=== PATIENT | male | born 1955 | race Caucasian/White ===

== ENCOUNTER 2017-06-10 15:47 | Inpatient (IN) | payer OTHER, MEDICAID ==
[2017-06-10] MEDS ORDERED: ONDANSETRON DISINTEGRATING 4 MG TAB PO PRN (17:32)
[2017-06-10] MEDS ORDERED: ONDANSETRON 4 MG/2 ML VIAL IVP PRN (17:32)
[2017-06-10] MEDS ORDERED: ACETAMINOPHEN 325 MG TAB PO PRN ×2 (17:32→18:08)
[2017-06-10] MEDS ORDERED: VANCOMYCIN 1 GM in D5W 250 ML IV SCH (18:00)
[2017-06-10] MEDS ORDERED: PIPERACILLIN/TAZO 3.375 GM/DEX 50 ML IV SCH (18:00)
[2017-06-10] MEDS ORDERED: OXYCODONE/APAP 5/325 TAB PO PRN (18:06)
[2017-06-10 18:39] LABS: ADD DIFF? YES; ADD MORPH? NO; ADD SCAN? NO; ATYPICAL LYMPHOCYTE FLAG 10 (0-99); FRAGMENT RBC FLAG 0 (0-99); HEMATOCRIT 36.4 % (40.0-51.0); HEMOGLOBIN 11.8 g/dL (13.7-17.5); LEFT SHIFT FLG 20 (0-99); LIPEMIA HEMOLYSIS FLAG 80 (0-99); MEAN CELL HEMOGLOBIN 26.6 pg (27.9-34.1); MEAN CELL HEMOGLOBIN CONCENTR. 32.4 g/dL (32.4-36.7); MEAN PLATELET VOLUME 8.9 fL (8.7-11.7); PLATELET CLUMPS FLAG 10 (0-99); PLATELET COUNT 378 10^3/uL (150-400); RED BLOOD CELL COUNT 4.44 10^6/uL (4.40-6.38); RED CELL DISTRIBUTION WIDTH 15.9 % (11.5-15.2)
[2017-06-10 18:41] LABS: INR 1.23 (0.83-1.16); PROTIME(PATIENT) 15.5 SEC (12.0-15.0)
[2017-06-10 18:53] LABS: ALANINE AMINOTRANSFERASE 101 IU/L (21-72); ALBUMIN 2.8 g/dL (3.5-5.0); ALKALINE PHOSPHATASE 147 IU/L (38-126); ANION GAP 13 mEq/L (8-16); ASPARTATE AMINOTRANSFERASE 60 IU/L (17-59); BILIRUBIN,TOTAL 0.8 mg/dL (0.1-1.4); CALCIUM 8.5 mg/dL (8.5-10.4); CARBON DIOXIDE 23 mEq/l (22-31); CHLORIDE 100 mEq/L (97-110); CREATININE 1.1 mg/dL (0.7-1.3); GLOMERULAR FILTRATION RATE > 60; GLUCOSE 96 mg/dL (70-100); POTASSIUM 4.8 mEq/L (3.5-5.2); SODIUM 136 mEq/L (134-144); TOTAL PROTEIN 5.9 g/dL (6.3-8.2)
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
[2017-06-10 19:15] LABS: PLATELET ESTIMATE ADEQUATE (ADEQ)
[2017-06-10 20:42] LABS: HEMOGLOBIN A1C 8.3 % (4.0-6.0)
[2017-06-10] MEDS ORDERED: GADOBUTROL 10 ML VIAL IVP ONE (21:24)
[2017-06-10] MEDS ORDERED: MAGNESIUM HYDROXIDE 30 ML UDCUP PO PRN (22:26)
[2017-06-10] MEDS ORDERED: D50W 25 GM/50 ML VIAL IVP PRN (22:28)
[2017-06-10] MEDS: INSULIN LISPRO 100 UNIT/ML SC SCH (22:46)
[2017-06-10] MEDS: morphINE SR 15 MG TAB PO SCH (22:49)
[2017-06-10] MEDS: ATORVASTATIN CALCIUM 40 MG TAB PO SCH (22:50)
[2017-06-10] MEDS: ATENOLOL 50 MG TAB PO SCH (22:50)
[2017-06-10] MEDS: oxyCODONE IR 5 MG TAB PO PRN (23:46)
[2017-06-11] MEDS: ERTAPENEM 1 GM VIAL IVP SCH ×2 (00:19→13:21)
[2017-06-11] MEDS: INSULIN LISPRO 100 UNIT/ML SC SCH ×5 (00:37→21:25)
--- NOTE | 2017-06-11 00:47 | BCON ---
[f rep st] SURGICAL CONSULTATION REASON FOR ADMISSION: Diabetic left foot infection. HISTORY OF PRESENT ILLNESS: 62-year-old male known to me with a significant history for diabetes, prior traumatic brain injury, lower extremity neuropathy, and prior right foot ischemia secondary to SFA level occlusive disease. He underwent a right SFA angioplasty in 2012, followed by 1st and 5th toe amputations, which ultimately healed up well. The patient lives at [facility]. He is minimally ambulatory. He reports that he bumped his left foot approximately 10 days ago on a door frame. Per his sister and brother-in- law, he was noted to have progressive worsening redness over the last few days for which he presents to the office today. Fevers and chills are denied. He has not been started on antibiotics by his care facility providers. In the office today, he was noted to have areas of diffuse ischemic ulceration throughout the sole of his foot along with the diffuse cellulitis. Provided white count of 12 was noted on yesterday's laboratory assessments. He is being admitted to the medical service at this time for co-management for his diabetic foot infection. Also, per his sister's report and the care facility, the patient has been having recent right upper quadrant pain with radiation towards his shoulder. I was unable to obtain much further history of this during our office setting and this will be addressed during this visit as well. PAST MEDICAL HISTORY: Prior traumatic brain injury, hypertension, diabetes, ischemic heart disease, neuropathy, GERD. PAST SURGICAL HISTORY: Renal artery stent placement, right 1st and 5th toe amputations. CURRENT MEDICATIONS: Aspirin, atenolol, atorvastatin, Plavix, Farxiga, Fiber, Januvia, Lyrica, metformin, milk of magnesia, morphine ER, morphine sulfate, Novolin, oxycodone, spironolactone, Voltaren gel to his right foot. ALLERGIES: No known drug allergies. SOCIAL HISTORY: Significant a prior smoking history. None current. Notable history of alcohol use. PHYSICAL EXAM: VITAL SIGNS: Blood pressure 100/60 in office. GENERAL: Patient is alert, appropriate, tangential. HEAD/NECK: 2+ carotid pulses without bruits. Anicteric. No cervical lymphadenopathy. HEART: Regular without murmurs. LUNGS: Clear bilaterally. ABDOMEN: Soft, nontender, nondistended. EXTREMITIES: 2+ bilateral femoral pulses, absent popliteal, as well as pedal pulses. Right lower extremity with nicely healed 1st and 5th toe amputation sites with 2+ capillary refill bilaterally. Left lower extremity with diffuse erythema. Dorsal blister and plantar ischemic ulcers measuring approximately 5 x 10 cm and 3 x 5 cm. No tenderness. No crepitus. No fluctuance. IMPRESSION: 1. Diabetic left foot infection. 2. Known bilateral superficial femoral artery level occlusive disease, status post remote right superficial femoral artery angioplasty. 3. History of chronic pain syndrome. 4. RUQ pain. PLAN: Patient is being admitted to the medical service for co-management of his diabetes, hypertension, and other illnesses. We will start IV antibiotics for his left foot infection. Patient will need a traditional angiography with possible catheter directed intervention of his SFA if able for further immediate revascularization needs. The patient's family are aware that he is at increased risk for limb loss given his infection and comorbidities. Will obtain RUQ US for further gallbladder assessment. This case was reviewed with Dr. Tang via phone, who agreed to accept the patient on admission. /[id number]/MODL MTDD
[2017-06-11] MEDS: LISINOPRIL 5 MG TAB PO SCH (07:47)
[2017-06-11] MEDS: morphINE SR 15 MG TAB PO SCH ×2 (07:47→20:50)
[2017-06-11] MEDS: ATENOLOL 50 MG TAB PO SCH ×2 (07:47→20:50)
[2017-06-11] MEDS: PREGABALIN 50 MG CAP PO SCH ×2 (07:48→20:50)
[2017-06-11] MEDS ORDERED: MEPERIDINE 25 MG/ML SYR IVP PRN (08:06)
[2017-06-11] MEDS ORDERED: PROTAMINE SULFATE 50 MG/5 ML VIAL IVP PRN (08:06)
[2017-06-11] MEDS ORDERED: MIDAZOLAM 2 MG/2 ML VIAL IVP PRN (08:06)
[2017-06-11] MEDS ORDERED: ALTEPLASE 2 MG VIAL IVP PRN (08:06)
[2017-06-11] MEDS ORDERED: GLUCAGON HCL 1 MG VIAL IVP PRN (08:06)
[2017-06-11] MEDS ORDERED: fentaNYL 100 MCG/2 ML INJ IVP PRN (08:06)
[2017-06-11] MEDS ORDERED: FLUMAZENIL 0.5 MG/5 ML MDV IVP PRN (08:06)
[2017-06-11] MEDS ORDERED: NALOXONE HCL 0.4 MG/ML INJ IVP PRN (08:06)
[2017-06-11] MEDS ORDERED: HEPARIN 10,000 UNIT/10 ML MDV IVP PRN (08:06)
[2017-06-11] MEDS ORDERED: NS 1,000 ML IV SCH (08:15)
--- NOTE | 2017-06-11 08:42 | WOCRNPDOC ---
WOCRN Advanced Assessment Note - Skin Integrity Problem, Advanced Assess Left Foot Diabetic Ulcer Dressing Type: Open to Air Exudate Amount: None Bernice Wound Tissue: Scaly, Dry Bernice Wound Swelling: None Wound Bed Color: Black Wound Bed Constitution: Stable Eschar Site Odor: None Site Measurement - Head-to-Toe Length X Width X Depth (cm): Proximal: 4.5cmx5.1cmx eschar. Distal:9.5cmx4.5cmx eschar Pulse Location & Description: No palpable DP pulse Skin Integrity Problem Comment: Two large wounds noted on plantar aspect of patient's L foot, both 100% dry, stable eschar w/ no fluctuance or odor. Periwound skin is presently intact and dry, and there is erythema on the dorsal aspect of this foot. No palpable DP pulse, though this extremity is warm to the touch. Patient reports 7/10 pain, and denies neuropathy. He is going for CTA w/ run-off today to assess vascular status of this extremity. Presently wounds are dry and stable, so no wound care orders are needed at this time. Wound care is available to re-evaluate if it is determined that patient is a candidate for revascularization and subsequent debridement.
[2017-06-11 08:45] LABS: ADD DIFF? YES; ADD MORPH? NO; ADD SCAN? NO; ATYPICAL LYMPHOCYTE FLAG 10 (0-99); FRAGMENT RBC FLAG 0 (0-99); HEMOGLOBIN 12.6 g/dL (13.7-17.5); LEFT SHIFT FLG 30 (0-99); LIPEMIA HEMOLYSIS FLAG 80 (0-99); MEAN CELL HEMOGLOBIN 26.8 pg (27.9-34.1); MEAN CELL HEMOGLOBIN CONCENTR. 32.3 g/dL (32.4-36.7); MEAN CELL VOLUME 82.8 fL (81.5-99.8); MEAN PLATELET VOLUME 8.7 fL (8.7-11.7); PLATELET CLUMPS FLAG 0 (0-99); PLATELET COUNT 373 10^3/uL (150-400); RED BLOOD CELL COUNT 4.71 10^6/uL (4.40-6.38); RED CELL DISTRIBUTION WIDTH 15.9 % (11.5-15.2)
[2017-06-11] MEDS: hydrALAZINE 20 MG/ML VIAL IVP PRN (08:59)
[2017-06-11] MEDS ORDERED: Dapagliflozin Propanediol [Farxiga] 5 MG PO SCH (09:00)
[2017-06-11] MEDS ORDERED: INSULIN 70/30 HUMAN 100 UNITS/ML SYR SC SCH ×4 (09:00→17:00)
[2017-06-11 09:09] LABS: ALANINE AMINOTRANSFERASE 86 IU/L (21-72); ALBUMIN 2.7 g/dL (3.5-5.0); ALKALINE PHOSPHATASE 135 IU/L (38-126); ANION GAP 11 mEq/L (8-16); ASPARTATE AMINOTRANSFERASE 49 IU/L (17-59); BILIRUBIN,TOTAL 0.8 mg/dL (0.1-1.4); CALCIUM 8.6 mg/dL (8.5-10.4); CARBON DIOXIDE 25 mEq/l (22-31); CHLORIDE 103 mEq/L (97-110); CREATININE 0.9 mg/dL (0.7-1.3); GLOMERULAR FILTRATION RATE > 60; GLUCOSE 172 mg/dL (70-100); SODIUM 139 mEq/L (134-144); TOTAL PROTEIN 6.2 g/dL (6.3-8.2)
[2017-06-11] MEDS ORDERED: fentaNYL 100 MCG/2 ML INJ ONE ×2 (09:40→09:51)
[2017-06-11] MEDS ORDERED: MIDAZOLAM 2 MG/2 ML VIAL ONE ×2 (09:40→09:51)
[2017-06-11] MEDS ORDERED: HEPARIN 10,000 UNIT/10 ML MDV ONE (09:41)
--- NOTE | 2017-06-11 09:52 | ASMTCASEMG ---
Living Arrangements What is your living Answers: Alone arrangement? Who do you live with? Type Of Residence What kind of residence do Answers: Jail Facility you live in? Discharge Plan Comments Coordination Status Comments Notes: Pt is a 62 y/o man admitted for a left foot ulcer. Pt lives at [facility]. Pt has a hx of TBI and his legal guardian is his sister, Kimmy. Pt will most likely return back to [facility] when medically stable. PT and OT have been ordered. CM sent updates to [facility] via [employer]. CM to follow. Date Signed: 06/11/2017 09:52 AM Electronically Signed By:MIKA Salas
[2017-06-11 10:32] LABS: PLATELET ESTIMATE ADEQUATE (ADEQ)
[2017-06-11] MEDS ORDERED: IOPAMIDOL (ISOVUE-300) 100 ML BTL ONE (10:41)
--- NOTE | 2017-06-11 10:49 | PDPROPOC ---
Sedation Plan of Care Sedation Plan of Care: vital signs stable, mental status noted, patient educated of risks, benefits, alternatives, patient can tolerate sedation ASA Classification: ASA 3 Planned drugs: fentanyl, midazolam Mallampati Score: Class 3 Mallampati Reference Image: Patient passed 3-3-2 rule?: Yes
--- NOTE | 2017-06-11 10:56 | PDMN ---
Medical Necessity Medical necessity: est los>2mn for diabetic foot ulcer and infection, elevated LFT's, and general debilitation; admit for IV abx, ID and surgical consults, PT/ OT;; comorbid PAD w/chronic occlusive limb ischemia LLE, DM, CAD, HTN, TBI; per H&P
[2017-06-11] MEDS ORDERED: VANCOMYCIN 1 GM in D5W 250 ML IV SCH (11:00)
--- NOTE | 2017-06-11 11:46 | PDRADPN ---
Radiology Procedure Note Date of Procedure: 06/11/17 Radiologist: Batsheva Martin Anesthesia: IV Sedation (fentanyl and versed) Pre-op Diagnosis: LLE PVD Post-op Diagnosis: same Indication: LT foot and chin cellulitis Procedure: LT leg runoff angiogram with SFA SURVIVAL SPECIALIST Finding(s): Focal moderate and long segment mild stenosis, resolved with SURVIVAL SPECIALIST. Inf/Abcess present in the surg proc area at time of surgery?: No Complications: None
--- NOTE | 2017-06-11 11:51 | SOAPPROG ---
SOAP Progress Note Assessment/Plan: Assessment:no complaints. hungry. in CVC s/p angioplasty. MRI with edema only - no abscess or osteo. US with gallstones. afebrile. comfortable. abd soft. puncture site flat. left foot warm - signif decr erythema since yesterday. no weeping. eschar unchanged. diabetic left foot infection with plantar eschar. cellulitis improved. cont ABX. will plan for future office eschar debridement once cellulitis resolved. apprec hospitalist assist with multiple comorbidities. Plan: 06/11/17 11:47 Objective: Vital Signs Temp Pulse Resp BP Pulse Ox 97.3 C H 68 17 160/73 H 96 06/11/17 08:55 06/11/17 08:55 06/11/17 10:20 06/11/17 10:45 06/11/17 10:45 Laboratory Results 06/11/17 08:14 06/11/17 08:14 06/10/17 06/11/17 06/12/17 05:59 05:59 05:59 Intake Total 100 Output Total 950 300 Balance -950 -200 PT 15.5 SEC (12.0-15.0) H 06/10/17 18:20 INR 1.23 (0.83-1.16) H 06/10/17 18:20 ICD10 Worksheet Patient Problems: Problems Problem Status Onset Encephalopathy acute Acute
[2017-06-11] MEDS: ASPIRIN 81 MG CHEWABLE TAB PO SCH (13:01)
[2017-06-11] MEDS: SPIRONOLACTONE 25 MG TAB PO SCH ×2 (13:01→16:31)
[2017-06-11] MEDS: DICLOFENAC SODIUM 1% 100 GM GEL TP SCH ×2 (13:19→21:23)
--- NOTE | 2017-06-11 14:42 | HOSPPROG ---
Hospitalist Progress Note Assessment/Plan: # Diabetic Foot wound - impressive Eschar of the plantar surface of foot - no significant erythema MRI LE (personally reviewed and interpreted) no osteomyelitis - will discuss Abx with ID - pt to IR for angiography today - Dr. Abbott surgery following # Peripheral Arterial disease - s/p SFA stenting and angioplasty 2014 - cont ASA, statin - consider CCB - to IR today - surgery following as above # Diabetes - pt currently NPO - BS 170's- oxygen saturations 95% on 2L - hold home dosing of NPH - hold PO meds as well - cover with SSI - if oral intake increases can restart in am # peripheral neuropathy - cont home gabapentin # HTN- cont home meds # TBI - continue supportive care # proph - lovenox on hold for angiography # diet- NPO for IR # dispo - > 2MN as requires diagnostic work up and care Frances stephen discussed the case with RN - holding long acting insulin today as BS adequately controlled with little PO intake Subjective: denies pain Objective: Vital Signs Temp Pulse Resp BP Pulse Ox 36.5 C 66 20 180/83 H 96 06/11/17 13:47 06/11/17 13:47 06/11/17 13:47 06/11/17 13:47 06/11/17 13:47 Laboratory Results 06/11/17 08:14 06/11/17 08:14 06/10/17 06/11/17 06/12/17 05:59 05:59 05:59 Intake Total 100 Output Total 950 300 Balance -950 -200 PT 15.5 SEC (12.0-15.0) H 06/10/17 18:20 INR 1.23 (0.83-1.16) H 06/10/17 18:20 - Physical Exam Constitutional: no apparent distress Eyes: anicteric sclera Ears, Nose, Mouth, Throat: moist mucous membranes Cardiovascular: regular rate and rhythym Respiratory: no respiratory distress Gastrointestinal: normoactive bowel sounds Genitourinary: no bladder fullness Skin: warm, other (large eschar of plantar surface of left foot) Musculoskeletal: No asymmetric calves Neurologic: No AAOx3 Psychiatric: interacting appropriately, No agitated Lymph, Heme, Immunologic: no cervical LAD ICD10 Worksheet Patient Problems: Problems Problem Status Onset Encephalopathy acute Acute
[2017-06-11] MEDS: oxyCODONE IR 5 MG TAB PO PRN ×2 (15:08→18:08)
[2017-06-11] MEDS ORDERED: ERTAPENEM 1 GM VIAL IVP SCH (18:00)
[2017-06-11] MEDS: ATORVASTATIN CALCIUM 40 MG TAB PO SCH (20:51)
[2017-06-12] MEDS: oxyCODONE IR 5 MG TAB PO PRN ×3 (00:20→18:06)
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
[2017-06-12] MEDS: SPIRONOLACTONE 25 MG TAB PO SCH ×2 (08:19→16:59)
[2017-06-12] MEDS: LISINOPRIL 5 MG TAB PO SCH (08:19)
[2017-06-12] MEDS: PREGABALIN 50 MG CAP PO SCH ×2 (08:19→20:50)
[2017-06-12] MEDS: morphINE SR 15 MG TAB PO SCH ×2 (08:19→20:50)
[2017-06-12] MEDS: ATENOLOL 50 MG TAB PO SCH ×2 (08:20→20:50)
[2017-06-12] MEDS: ASPIRIN 81 MG CHEWABLE TAB PO SCH (09:29)
[2017-06-12] MEDS: INSULIN 70/30 HUMAN 100 UNITS/ML SYR SC SCH (09:29)
[2017-06-12] MEDS: INSULIN LISPRO 100 UNIT/ML SC SCH ×4 (09:31→20:52)
[2017-06-12] MEDS: ENOXAPARIN 40 MG/0.4 ML SYR SC SCH (09:33)
--- NOTE | 2017-06-12 09:53 | PCMIDPN ---
Assessment/Plan: # Possible LLE cellulitis associated with L lower leg ischemia. Remote H/o MRSA --dc IV antibiotics, dc vanco trough --5 more days PO Keflex + doxycycline, MAR adjusted --call ID for additional questions # Severe Back pain : hopefully related to bed position post vascular procedure yesterday, internal medicine addressing medication vancomycin 1gm IV q12, #2 micro 06/10 blood cx (2) NGTD Subjective: c/o severe back pain Objective: Vital Signs Temp Pulse Resp BP Pulse Ox 36.7 C 72 20 199/106 H 94 06/12/17 08:00 06/12/17 08:00 06/12/17 08:00 06/12/17 08:00 06/12/17 08:00 Laboratory Results 06/11/17 08:14 06/11/17 08:14 06/11/17 06/12/17 06/13/17 05:59 05:59 05:59 Intake Total 100 Output Total 950 950 Balance -950 -850 - Physical Exam General Appearance: alert, no apparent distress, obese EENT: pale conjunctiva, No scleral icterus Respiratory: No accessory muscle use Cardiac/Chest: regular rate, rhythm Extremities: inflammation (almost complete resolution of inflammation dorsum of foot and mid aviles), other (2 dry superficial ichemic ulcers on the sole 4.5cmx5.1cm; Distal:9.5cmx4.5cm, dry without drainage) Abdomen: normal bowel sounds, non-tender, soft Neuro/Psych: alert ICD10 Worksheet Patient Problems: Problems Problem Status Onset Encephalopathy acute Acute
[2017-06-12] MEDS: DICLOFENAC SODIUM 1% 100 GM GEL TP SCH ×2 (10:33→20:51)
[2017-06-12] MEDS: VANCOMYCIN 1 GM in D5W 250 ML IV SCH ×2 (12:55)
--- NOTE | 2017-06-12 13:11 | WOCRNPDOC ---
WOCRN Advanced Assessment Note - Skin Integrity Problem, Advanced Assess Left Foot Diabetic Ulcer Dressing Type: Open to Air Wound Bed Constitution: Stable Eschar Skin Integrity Problem Comment: x2 wounds. Stable without any surrounding erythema. Recommend leaving OPERATING ROOM ASSISTANT (but protecting area from further trauma) and painting with betadine. Wound care will sign off. Discussed plan with patient's family member, Dr. Mendes and with Lucien LANDA. Almas PARTY COORDINATOR in room for care.
--- NOTE | 2017-06-12 14:50 | ASMTCMCOM ---
CM Note CM Note Notes: CM met w/ sister, Kimmy who is the guardian. Kimmy requested that pt rest for awhile and have therapies come back at a later time. Anticipates that pt will d/c back to [place] tomorrow. Kimmy reports that she can transport pt back to facility. Kimmy is requesting a copy of pts med list at time of d/c. CM sent updates to [place] [facility]. CM to follow. Date Signed: 06/12/2017 02:49 PM Electronically Signed By:MIKA Salas
--- NOTE | 2017-06-12 16:00 | SOAPPROG ---
SOAP Progress Note Assessment/Plan: Assessment: complains of back pain only. no RUQ pain. no nausea. hungry. no left leg complaints. AVSS. comfortable up in chair. tender midline thoracic spine. abd with minimal hypogastric tenderness. no rebound or guarding. left foot with resolved erythema. no weeping. no tenderness. eschar unchanged. diabetic left foot infection with plantar eschar. cellulitis improved. changing to po ABX. will plan for future office eschar debridement once cellulitis resolved. apprec hospitalist assist with multiple comorbidities. no concerns for acute choly at this time - back pain likely secondary to immobility. back to [facility] in am? will see back in 2 weeks. wound care - shower, soap, water normally - no cover needed over eschar - normal shoes and socks. Plan: 06/11/17 11:47 06/12/17 15:45 06/12/17 16:00 Objective: Vital Signs Temp Pulse Resp BP Pulse Ox 36.8 C 64 20 169/107 H 91 L 06/12/17 12:00 06/12/17 12:00 06/12/17 12:00 06/12/17 12:00 06/12/17 12:00 Laboratory Results 06/11/17 08:14 06/11/17 08:14 06/11/17 06/12/17 06/13/17 05:59 05:59 05:59 Intake Total 100 Output Total 950 950 Balance -950 -850 PT 15.5 SEC (12.0-15.0) H 06/10/17 18:20 INR 1.23 (0.83-1.16) H 06/10/17 18:20 ICD10 Worksheet Patient Problems: Problems Problem Status Onset Encephalopathy acute Acute
--- NOTE | 2017-06-12 16:43 | HOSPPROG ---
Hospitalist Progress Note Assessment/Plan: # Diabetic Foot wound - impressive Eschar of the plantar surface of foot - no significant erythema MRI LE (personally reviewed and interpreted) no osteomyelitis - changed Abx to PO today - s/p angioplasty yesterday - Dr. Abbott surgery following # Peripheral Arterial disease - s/p SFA stenting and angioplasty 2015 - cont ASA, statin - consider CCB - to IR today - surgery following as above # Diabetes - pt starting PO overnight - BS 250's today- oxygen saturations 91% on RA - restarting 70/30 this am 30 - will start 1700 70/30 at 20 units - cont hold PO meds - cover with SSI - continue to monitor closely # peripheral neuropathy - cont home gabapentin # HTN- cont home meds # TBI - continue supportive care # proph - lovenox on hold for angiography # diet- NPO for IR # dispo - > 2MN as requires diagnostic work up and care Frances stephen discussed the case with RN - holding long acting insulin today as BS adequately controlled with little PO intake Subjective: back pain Objective: Vital Signs Temp Pulse Resp BP Pulse Ox 36.9 C 66 20 195/88 H 90 L 06/12/17 16:00 06/12/17 16:00 06/12/17 16:00 06/12/17 16:00 06/12/17 16:00 Laboratory Results 06/11/17 08:14 06/11/17 08:14 06/11/17 06/12/17 06/13/17 05:59 05:59 05:59 Intake Total 100 Output Total 950 950 Balance -950 -850 PT 15.5 SEC (12.0-15.0) H 06/10/17 18:20 INR 1.23 (0.83-1.16) H 06/10/17 18:20 - Physical Exam Constitutional: chronically ill appearing Eyes: anicteric sclera Ears, Nose, Mouth, Throat: moist mucous membranes Cardiovascular: regular rate and rhythym Respiratory: no respiratory distress, no rales or rhonchi Gastrointestinal: normoactive bowel sounds, soft, non-tender abdomen Genitourinary: no bladder fullness Skin: warm, other (eschar unchanged) Musculoskeletal: No asymmetric calves Neurologic: No AAOx3 Psychiatric: No agitated Lymph, Heme, Immunologic: no cervical LAD ICD10 Worksheet Patient Problems: Problems Problem Status Onset Encephalopathy acute Acute
[2017-06-12] MEDS ORDERED: INSULIN 70/30 HUMAN 100 UNITS/ML SYR SC SCH ×2 (17:00)
[2017-06-12] MEDS: hydrALAZINE 20 MG/ML VIAL IVP PRN ×2 (17:05→23:10)
[2017-06-12] MEDS: CEPHALEXIN 500 MG CAP PO SCH ×2 (18:06→23:05)
[2017-06-12] MEDS: DOXYCYCLINE HYCLATE 100 MG CAP/TAB PO SCH (20:50)
[2017-06-12] MEDS: ATORVASTATIN CALCIUM 40 MG TAB PO SCH (20:50)
[2017-06-13] MEDS: CEPHALEXIN 500 MG CAP PO SCH (05:35)
[2017-06-13 07:33] VITALS: BP 170/86; RESP 20; TEMP 98.2; O2SAT 91
[2017-06-13] MEDS: INSULIN LISPRO 100 UNIT/ML SC SCH (07:57)
[2017-06-13] MEDS: SPIRONOLACTONE 25 MG TAB PO SCH (07:58)
[2017-06-13] MEDS: ASPIRIN 81 MG CHEWABLE TAB PO SCH (07:58)
[2017-06-13] MEDS: ATENOLOL 50 MG TAB PO SCH (07:59)
[2017-06-13] MEDS: DICLOFENAC SODIUM 1% 100 GM GEL TP SCH (08:00)
[2017-06-13] MEDS: LISINOPRIL 5 MG TAB PO SCH (08:00)
[2017-06-13] MEDS: morphINE SR 15 MG TAB PO SCH (08:01)
[2017-06-13] MEDS: PREGABALIN 50 MG CAP PO SCH (08:01)
[2017-06-13] MEDS: INSULIN 70/30 HUMAN 100 UNITS/ML SYR SC SCH (08:01)
[2017-06-13] MEDS: ENOXAPARIN 40 MG/0.4 ML SYR SC SCH (08:01)
[2017-06-13] MEDS: DOXYCYCLINE HYCLATE 100 MG CAP/TAB PO SCH (08:02)
[2017-06-13 08:06] VITALS: PULSE 67
--- NOTE | 2017-06-13 10:01 | PDIAF ---
- Diagnosis Diagnosis: paeripheral artery disease Code Status: Full Code - Medication Management Discharge Medications: Medications to Continue on Transfer Aspirin [Aspirin 81mg (*)] 81 mg PO DAILY@08 05/28/13 [Last Taken 06/10/17] Atenolol [Tenormin 100 mg (*)] 100 mg PO BID 05/28/13 [Last Taken 06/10/17 09:00 ] Clopidogrel Bisulfate [Plavix (*)] 75 mg PO DAILY@08 05/28/13 [Last Taken ] Magnesium Hydroxide [Milk of Magnesia (*)] 30 ml PO DAILY PRN 05/28/13 [Last Taken Unknown] metFORMIN HCL [Glucophage 500 mg (*)] 1,000 mg PO BIDMEAL 05/28/13 [Last Taken 06/10/17 09:00] Atorvastatin Calcium [Lipitor 40 mg (*)] 40 mg PO HS 06/10/17 [Last Taken ] Capsaicin [Arthritis Pain Relieving] 1 brayan TP HS 06/10/17 [Last Taken 06/09/17] Dapagliflozin Propanediol [Farxiga] 5 mg PO DAILY 06/10/17 [Last Taken 06/10/17] Diclofenac Sodium 1% [Voltaren Gel (*)] 1 brayan TP BID 06/10/17 [Last Taken 09:00] Herbals/Supplements -Info Only 1 ea PO DAILY 06/10/17 [Last Taken Unknown] Lisinopril [Zestril 10 mg (*)] 15 mg PO DAILY 06/10/17 [Last Taken 06/10/17] Pregabalin [Lyrica 50mg (*)] 50 mg PO BID 06/10/17 [Last Taken 06/10/17 09:00] Spironolactone [Aldactone 25 MG (*)] 25 mg PO BID@,06/10/17 [Last Taken 08:00] morphINE SR [Ms Contin/Oramorph 15 mg (*)] 45 mg PO BID 06/10/17 [Last Taken 09:00] sitaGLIPtin PHOSPHATE [Januvia 100 MG (*)] 100 mg PO DAILY 06/10/17 [Last Taken 06/10/17] Cephalexin [Keflex (*)] 500 mg PO Q6HRS #20 cap 06/13/17 [Last Taken Unknown] Doxycycline Hyclate [Vibramycin 100 MG (*)] 100 mg PO BID #10 capsule 06/13/17 [ Last Taken Unknown] Insulin 70/30 Human [Novolin 70/30 (*)] 20 units SC 1700 #0 btl 06/13/17 [Last Taken Unknown] Insulin 70/30 Human [Novolin 70/30 (*)] 30 units SC DAILY #0 btl 06/13/17 [Last Taken Unknown] oxyCODONE HCL/ACETAMINOPHEN [Percocet 7.5-325 mg Tablet] 1 - 2 each PO Q6 PRN # 0 06/13/17 [Last Taken 06/10/17 00:15] Discharge Medications: Refer to the Discharge Home Medication list for PRN reason. - Orders Services needed: Home Care, Registered Nurse, Physical Therapy, Occupational Therapy Home Care Face to Face: I certify that this patient was under my care and that I had the required uzol-wa-oinn encounter meeting the encounter requirements on the discharge day. My findings support the fact that the patient is homebound as defined in Home Care Face to Face Continued: CMS Chapter 7 Medicare Benefits Manual 30.1.1 , The condition of the patient is such that there exists a normal inability to leave home and consequently, leaving home would require a considerable and taxing effort. Diet Recommendation: ADA 2200 consistent carb Diet Texture: Regular Texture Diet - Follow Up Care Current Providers and Referrals: MARTA ROMANO [Other] Elliott Abbott MD [Medical Doctor] -
--- NOTE | 2017-06-13 10:48 | ASDISCHSUM ---
Discharge Information Plan Status:SNF Medically Cleared to Leave: Discharge Date:06/13/2017 10:35 AM CM D/C Disposition:Shelter Facility ADT D/C Disposition:Shelter Facility Projected Discharge Date:06/13/2017 11:00 AM Transportation at D/C:Family Discharge Delay Reason: Follow-Up Date:06/13/2017 11:00 AM Discharge Slot: Final Diagnosis: Placement Information Referral Type:*Group Home/SNF Referral ID:[id number] Provider Name:[facility] Address 1:[address] [place] [address] Phone Number: Address 2: Fax Number: City:[place] Selection Factors: State:[place] Patient Contact Information Contact Name:CARLOSROJELIO Relationship:Sister Address: Work Phone: [facility] Phone: [facility] Code:[place] Email: Financial Information Financial Class: Primary Plan Desc:MEDICARE INPATIENT Primary Plan Number:[id number] Secondary Plan Desc:MEDICA[place] Secondary Plan Number:[id number] Assessment Information [facility] Initial CM Assessment Living Arrangements What is your living Answers: Alone arrangement? Who do you live with? Type Of Residence What kind of residence do Answers: Shelter Facility you live in? Discharge Plan Comments Coordination Status Comments Notes: Pt is a 62 y/o man admitted for a left foot ulcer. Pt lives at [facility]. Pt has a hx of TBI and his legal guardian is his sister, Kimmy. Pt will most likely return back to [facility] when medically stable. PT and OT have been ordered. CM sent updates to [facility] via [employer]. CM to follow. Date Signed: 06/11/2017 09:52 AM Electronically Signed By:MIKA Salas [facility] CM Progress Note CM Note CM Note Notes: CM met w/ sister, Kimmy who is the guardian. Kimmy requested that pt rest for awhile and have therapies come back at a later time. Anticipates that pt will d/c back to [facility] tomorrow. Kimmy reports that she can transport pt back to facility. Kimmy is requesting a copy of pts med list at time of d/c. CM sent updates to [facility]. CM to follow. Date Signed: 06/12/2017 02:49 PM Electronically Signed By:MIKA Salas Case Management Discharge Plan Note Case Management Discharge Discharge Order Complete? Answers: Yes Patient to Obtain Answers: Other Notes: [facility] Medications Transportation Arranged Answers: Family/Friends Faxed Final Orders Answers: Yes Agency/Facility Transfer Answers: No Report Printed & Faxed to Receiving Agency Family Notified Answers: Yes Discharge Comments Notes: Pt. d/cing today to [facility] where he lives. His sister Kimmy is taking him back. RN provided Kimmy with a list of d/c meds at Kimmy's request. JOHN called Margaux at [facility]. Margaux pleased that Kimmy is bringing Pt. back to [facility] since transportation could be difficult today (holiday). JOHN sent d/c orders and meds via [employer]. Date Signed: 06/13/2017 10:46 AM Electronically Signed By:Janine Serrano LCSW Intervention Information Intervention Type:*Incorrect Registration Date of Service:06/11/2017 10:56 AM Patient Type:Inpatient Staff Member:CORDELL Neumann Susan Hours: Discipline: Severity: Comment:
--- NOTE | 2017-06-13 14:11 | GDS ---
[f rep st] DISCHARGE SUMMARY DISCHARGE DIAGNOSES: For this patient include: 1. Peripheral artery disease status post angioplasty. 2. Lower extremity cellulitis. 3. Poorly controlled diabetes. 4. Chronic peripheral neuropathy. 5. Hypertension. 6. Traumatic brain injury. CONSULTATIVE SERVICES: 1. General surgery. 2. Infectious disease. 3. Interventional radiology. PROCEDURES: On 06/11/2017, patient underwent angioplasty of the left lower extremity. PENDING STUDIES: Include blood cultures, which are preliminary; no growth to date at the time of dis charge. HOSPITAL COURSE BY ISSUE: 1. Progressive eschar and erythema of the left lower extremity. Patient was evaluated in the outpat ient setting. Presented for angiography and angioplasty by Interventional Radiology. The patient winters s good postprocedural perfusion. Will be followed by General Surgery in the outpatient setting, as w ell as for wound care. 2. Left lower extremity cellulitis. Patient was initiated on IV antibiotics and transitioned to ora l day before disposition. Per family's report, the erythema seen at home is markedly improved since initiation of antibiotics. He will complete 5 additional days of a combination oral regimen, includi ng doxycycline and Keflex. 3. Poorly controlled diabetes. Patient's outpatient hemoglobin A1c is 8. He uses 200 units of 70/3 0 insulin at his [facility]. Patient's oral intake was markedly decreased from his reported baseli ignacio. We have backed way off on his 70/30 dosing during this hospital stay. His morning dose of 110 units 70/30 is been reduced 30, and his evening dose, previously 90 units of 70/30, has been reduced to 20. He has had blood sugars in the low 200s on this regimen. I suspect, as he is feeling better and increasing his oral intake, they can slowly uptitrate his 70/30 dosing. 4. Hypertension. Patient is continued on his home medications. 5. Peripheral neuropathy. Patient is continued on gabapentin. MEDICATIONS AT THE TIME OF DISPOSITION: Please reference med rec printed on 06/13/2017. FOLLOWUP APPOINTMENTS: Include with Dr. Abbott in the outpatient setting, as well as with the patient's ongoing outpatient ec teacher. TIME SPENT: I spent greater than 30 minutes in the planning and coordination of this discharge. /[id number]/MODL
--- NOTE | 2017-06-17 08:07 | ECHO ---
[email or web address] [address] [address] Main: [phone] Fax: Transthoracic Echocardiogram Name: TAM KERR MR#: [id number] Study Date: 06/11/2017 Study Time: 08:06 AM Date of : 1955 Age: 62 year(s) Height: 175.3 cm (69 in.) Weight: 118.84 kg (262 lb.) BSA: 2.32 m2 Gender: Male Examination: Echo Indication: Coronary artery disease, LE edema Image Quality: Technically Difficult Contrast: Requested by: Prachi Tang BP: 200 mmHg/114 mmHg Heart Rate: Rhythm: Normal sinus rhythm Indication: Coronary artery disease, LE edema Procedure Staff Pipe Coremaker: Mirtha Stacy Reading Physician: Fransisca Lr Requesting Provider: Conclusions: Normal size left ventricle. Mildly reduced systolic LV function. EF is 49 %. The mid inferior, apical inferior and apex Grade 2 diastolic dysfunction (pseudonormalized LV filling pattern). Elevated left ventricular filling pressures.. Right ventricle not well visualized. Aortic valve is not well visualized. Mean aortic valve gradient 11. Technically limited study with poor visualization of valves. Mildly reduced EF with regional wall motion abnormalities. No prior study Measurements: Chambers Valvular Assessment AV/MV Valvular Assessment TV/PV Normal Normal Normal Name Value Range Name Value Range Name Value Range Ao Ines (MM): 3.1 cm (2.2 cm-3.7 AV meanP mmHg ( - ) PV Vmax: 0.57 m/s (0.6 m/s-0.9 cm) LVOT Vmax: 0.64 m/s (0.7 m/s-1.1 m/s) LVEF (BP): 49 % (>=55 %) m/s) PV PGmax: 1 mmHg ( - ) MV E Vmax: 1.22 m/s ( - ) MV A Vmax: 0.94 m/s ( - ) MV E/A: 1.30 ( - ) Continued Measurements: Chambers Valvular Assessment AV/MV Name Value Name Value LADs Lon.3 cm MV DecTime: 194 m/s LA Area: 17.0 cm2 MV E/E' Septal: 18.40 Patient: TAM KERR Study Date: 06/11/2017 Page 1 of 2 08:06 AM LA Volume: 41 ml MV E/E' Lateral: 13.20 LA Volume Index: 17.7 ml/m2 Findings: Left Ventricle: Normal size left ventricle. Mildly reduced systolic LV function. EF is 49 %. Regional wall motion abnormality noted. The mid inferior, apical inferior and apex wall segments are hypokinetic. All remaining scored wall segments are normal. Grade 2 diastolic dysfunction (pseudonormalized LV filling pattern). Elevated left ventricular filling pressures.. Right Ventricle: Right ventricle not well visualized. Left Atrium: The left atrium is normal in size. Right Atrium: The right atrium is normal in size. Mitral Valve: The mitral valve is normal in appearance and function. Mild mitral annular calcification. Trivial mitral valve regurgitation. Aortic Valve: Aortic valve is not well visualized. Mild aortic cusp calcification is noted. There is no aortic valve regurgitation. Mean aortic valve gradient 11. Trivial calcific aortic valve stenosis. Tricuspid Valve: The tricuspid valve is normal in appearance and function. There is no tricuspid valve regurgitation. Pulmonary artery pressure is not obtained due to inadequate TR jet. Pulmonic Valve: The pulmonic valve is normal in appearance and function. Aorta: The aorta is normal. Normal size aortic root measuring 3.1 cm. Pericardium: No pericardial effusion. (No Signature Object) Wall Motion Scores -1 - Not Scored, 0 - Unknown, 1 - Normal or hyperkinesia, 2 - Hypokinesia, 3 - Akinesia, 4 - Dyskinesia, 5 - Aneurysm Patient: TAM KERR Study Date: 06/11/2017 Page 2 of 2 08:06 AM [id number]
== END 2017-06-13 10:35 | DRG 629 ==
LOC: F3E 16:45 → OBSVTOIN 17:28
PROVIDERS: ADMIT Surgery; ATTEND Surgery
PROC: 047L3ZZ Dilation of Left Femoral Artery, Percutaneous Approach (ICD-10-PCS; principal; 2017-06-11)
DX: E11.621 Type 2 diabetes mellitus with foot ulcer (principal); L03.116 Cellulitis of left lower limb; E11.51 Type 2 diabetes mellitus with diabetic peripheral angiopathy without gangrene; L97.529 Non-pressure chronic ulcer of other part of left foot with unspecified severity; I10 Essential (primary) hypertension; I25.10 Atherosclerotic heart disease of native coronary artery without angina pectoris; Z89.421 Acquired absence of other right toe(s); Z86.73 Personal history of transient ischemic attack (TIA), and cerebral infarction without residual deficits
CPT/HCPCS: 97165-GO; 97530-GP; A9585; C1725; C1760; C1769; C1892; C1894; G8987-GO-CJ; G8988-GO-CJ; G8989-GO-CJ; J0360; J1335; J1644; J1650; J1815; J2250; J3010; J3370; Q9967

== ENCOUNTER 2017-08-02 08:11 | Day surgery (SDC) | payer OTHER, MEDICAID ==
--- NOTE | 2017-08-02 08:40 | PDHPUP ---
History & Physical Update H&P update statement: This history and physical update is based on an assessment of the patient which was completed after admission or registration (within 24 hours), but prior to the surgery/procedure. H&P update: H&P reviewed & patient examined, no change in patient's condition since H&P completed
[2017-08-02] MEDS ORDERED: ERTAPENEM 1 GM VIAL IVP SCH (09:00)
[2017-08-02] MEDS ORDERED: LR 1,000 ML IV ONE (09:01)
[2017-08-02] MEDS ORDERED: BUPIVACAINE 0.5% 30 ML SDV ONE (09:07)
[2017-08-02] MEDS ORDERED: INSULIN REGULAR HUMAN 100 UNIT/ML UNIT ONE (09:39)
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
[2017-08-02] MEDS ORDERED: MIDAZOLAM 2 MG/2 ML VIAL IVP ONE (09:42)
[2017-08-02] MEDS ORDERED: INSULIN REGULAR HUMAN 100 UNIT/ML UNIT SC ONE (09:47)
[2017-08-02] MEDS ORDERED: MIDAZOLAM 2 MG/2 ML VIAL ONE (09:47)
[2017-08-02] MEDS ORDERED: PROPOFOL/EMULSION 500 MG/50 ML BOTTLE IV ONE ×2 (09:51→10:26)
[2017-08-02] MEDS ORDERED: fentaNYL 100 MCG/2 ML INJ IVP PRN (10:20)
[2017-08-02] MEDS ORDERED: NALOXONE HCL 0.4 MG/ML INJ IVP PRN (10:20)
[2017-08-02] MEDS ORDERED: ONDANSETRON 4 MG/2 ML VIAL IVP PRN (10:20)
[2017-08-02] MEDS ORDERED: HYDROmorphONE/DILAUDID 1 MG/ML INJ IVP PRN (10:20)
--- NOTE | 2017-08-02 11:10 | POSTANESTH ---
Post Anesthetic Evaluation Cardiovascular Status: Normal, Stable Respiratory Status: Similar to Pre-op Cond. Level of Consciousness/Mental Status: Alert and Oriented (Back to about baseline ) Pain Control: Adequate, Prn Tx Ordered Nausea/Vomiting Control: Adequate, Prn Tx Ordered Complications Possibly Related to Anesthesia: None Noted
--- NOTE | 2017-08-02 11:14 | POSTOPPROG ---
Post Op Note Date of Operation: 08/02/17 Surgeon: Elliott Abbott Anesthesiologist: Bety Anesthesia: IV Sedation Pre-op Diagnosis: Diabetic foot infection Post-op Diagnosis: Same Procedure: Left 5th MT amp with heel debridement Findings: excellent bleeding at cut surfaces Inf/Abcess present in the surg proc area at time of surgery?: Yes Depth: Deep Incisional (Fascial) EBL: Minimal Specimen(s): 5th toe
[2017-08-02 11:19] VITALS: PULSE 79
[2017-08-02 11:25] VITALS: TEMP 97.5
[2017-08-02] MEDS ORDERED: INSULIN REGULAR HUMAN 100 UNIT/ML UNIT SC SCH (11:30)
[2017-08-02 11:40] VITALS: BP 163/82; RESP 18; O2SAT 95
--- NOTE | 2017-08-02 14:43 | GOP ---
[f rep st] OPERATIVE REPORT DATE OF OPERATION: 08/02/2017 SURGEON: Elliott Abbott MD ANESTHESIA: Regional with MAC. ANESTHESIOLOGIST: Elliott Albert MD PREOPERATIVE DIAGNOSIS: 1. Diabetic left foot infection, left 5th toe gangrene. 2. Plantar ischemic ulcer. POSTOPERATIVE DIAGNOSIS: 1. Diabetic left foot infection, left 5th toe gangrene. 2. Plantar ischemic ulcer. PROCEDURE PERFORMED: 1. Left 5th toe amputation. 2. Left heel debridement. FINDINGS: INDICATIONS: A 62-year-old male with a longstanding history of diabetes and an ischemic 5th toe as w ell as heel ulcer. He has been managed in the outpatient setting with a local wound care. His toe h as demarcated nicely and is ready to proceed with amputation at this time to facilitate further heali ng as well as further eschar debridement. Surgical risks and benefits were explained of bleeding, in fection, need for additional surgical intervention, as well as a roles for higher level amputation. All questions were answered. He desires to proceed. DESCRIPTION OF PROCEDURE: After monitored anesthesia was started, a regional block was applied along the dorsum of the foot along the posterior tibial artery and the lateral aspect of the left 5th toe. Visual inspection disclosed a 15 cm eschar across the heel with normal pink surrounding remaining ti ssue. The left 5th phalanx was completely gangrenous to the level of the metatarsal joint. There we re areas of open wound from a prior ischemic change, which has all been improving since the patient h ad a prior angioplasty. A transverse incision was created along the lateral aspect of the 5th metata rsal. Using an elevator, soft tissues were divided back to healthy-appearing cancellous bone at the m etatarsal level. Using a bone cutter, the bone was transected at this location. The necrotic phalanx and soft spongy proximal phalanx were all included in the specimen. The metatarsal was of a nice he althy cancellous bone with excellent bleeding. The cut edge was followed back with a rongeur. Satis factory hemostasis was assured. The remaining soft tissues all nicely flopped over the open defect. There was no skin to close given the prior areas of necrosis which were in the process of granulatin g in. The 15 cm heel eschar was removed using electrocautery. There was excellent bleeding coming fr om all cut tissues at both the level of the heel and the remaining 5th metatarsal soft tissues. Sati sfactory hemostasis was assured. Sterile dressings were applied. The patient taken to [facility] e uneventfully. /[id number]/MODL
== END 2017-08-02 12:10 ==
LOC: FSGY 08:11
PROVIDERS: ATTEND Surgery
PROC: 0JDR3ZZ Extraction of Left Foot Subcutaneous Tissue and Fascia, Percutaneous Approach (ICD-10-PCS; principal; 2017-08-02 10:00)
PROC: 0Y6Y0Z0 Detachment at Left 5th Toe, Complete, Open Approach (ICD-10-PCS; principal; 2017-08-02 10:00)
DX: E11.52 Type 2 diabetes mellitus with diabetic peripheral angiopathy with gangrene (principal); L97.524 Non-pressure chronic ulcer of other part of left foot with necrosis of bone; E11.621 Type 2 diabetes mellitus with foot ulcer; I70.245 Atherosclerosis of native arteries of left leg with ulceration of other part of foot; I10 Essential (primary) hypertension; Z87.820 Personal history of traumatic brain injury; Z86.73 Personal history of transient ischemic attack (TIA), and cerebral infarction without residual deficits
CPT/HCPCS: J1335; J1815; J2250; J2704

== ENCOUNTER 2017-08-23 13:27 | Inpatient (IN) | payer OTHER, MEDICAID ==
--- NOTE | 2017-08-23 14:42 | SOAPPROG ---
SOAP Progress Note Assessment/Plan: Assessment:62yr old diabetic male s/p recent left SFA angioplasty for an ischemic diabetic left foot ulcer. He underwent a plantar eschar ulcer excision and 5th toe amputation on 08/02. 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 He is being admitted for further medical management at this time. Will start IV ABX. If he does not rapidly improve, he will need advanced imaging with MRI or CT to exclude a deep plantar abscess (he does have difficulty holding still). Care plan reviewed with Hospitalist service who agrees to admit patient to assist with medical management issues. Plan: 08/23/17 14:38 ICD10 Worksheet Patient Problems: Problems Problem Status Onset Encephalopathy acute Acute
[2017-08-23] MEDS ORDERED: D50W 25 GM/50 ML SYR IVP PRN (17:00)
--- NOTE | 2017-08-23 17:22 | GHP ---
[f rep st] HISTORY AND PHYSICAL DATE OF ADMISSION: 08/23/2017 CHIEF COMPLAINT: Diabetic foot infection. HISTORY OF PRESENT ILLNESS: This is a 62-year-old male with longstanding history of poorly controlle d diabetes, resides in a long-term care facility, who was referred to [facility] and directly admitted by Dr. Elliott Abbott for treatment of diabetic left foot ulcer. He underwent a plant ar eschar ulcer excision of the 5th toe on 08/02/[address] Abbott. He reportedly has been declining a t his long-term care facility since then, with fevers and uncontrolled blood sugars. During the time of my exam, the patient states his pain is controlled. He is having some fevers. His blood sugars have been poorly controlled, but that is attributed to his diet at [facility] since they were unable t o provide him with a diabetic diet and also the fact that since being discharged from [facility] in May, he has not been on his full doses of 70/30 insulin. PAST MEDICAL HISTORY: 1. Long-standing poorly controlled diabetes mellitus. 2. Myocardial infarction. 3. Acute kidney injury. 4. Cervical spinal stenosis. 5. Hypertension. 6. Anemia. 7. Urinary retention. 8. Hospitalization in May of this year for lower extremity cellulitis status post peripheral ar tati angioplasty. 9. Traumatic brain injury. PAST SURGICAL HISTORY: 1. Amputations of the right 1st and 2nd toe, May 2013. 2. Renal artery stents. 3. Angioplasty of the lower extremities with prior SFA stents. 4. Left 5th toe amputation and heel debridement done by Dr. Abbott on 08/02/2017. HOME MEDICATIONS: Reviewed. Refer to [facility] for details. ALLERGIES: No known drug allergies. SOCIAL HISTORY: The patient has had been incarcerated earlier in his life. Currently lives at [facility]. He has a history of polysubstance abuse, but is currently sober. FAMILY HISTORY: Reviewed and unremarkable. REVIEW OF SYSTEMS: Comprehensive 10-point review of systems was done and is negative, except for as mentioned in the HPI. PHYSICAL EXAM: VITAL SIGNS: Blood pressure 137/62, pulse 75, respiratory rate 18, O2 saturation 92% on room air. Temperature afebrile. GENERAL: No acute distress. HEAD: Normocephalic, atraumatic. EYES: PERRLA. Sclerae anicteric. MOUTH: Moist mucous membranes. NECK: Supple. No lymphadenop athy. CARDIOVASCULAR: S1, S2. No JVD. No lower extremity edema. PULMONARY: Lungs are clear. No wheezes, rales, or rhonchi. ABDOMEN: Soft, nontender, nondistended. No guarding or rebound tender ness. Normoactive bowel sounds. EXTREMITIES: No clubbing or cyanosis. NEURO: Cranial nerves 2-12 grossly intact. Left foot has a postoperative dressing that was not taken down. I did review Dr. Nellie garcia's exam that describes skin breakdown over the left plantar and dorsal foot. DIAGNOSTICS: This patient was a direct admit. There is no laboratory studies that have been done. Labs reviewed from May of 2017: WBCs were 11.4, hemoglobin 12.6, hematocrit 39, platelets 373. INR was 1.2. ASSESSMENT AND PLAN: This is a 62-year-old male, who underwent left 5th toe amputation and left heel debridement by Dr. Abbott on 08/02/2017 presenting with: 1. Left diabetic foot infection, status post amputation on 08/02/2017. 2. Poorly controlled diabetes mellitus. 3. History of coronary artery disease. 4. History of peripheral vascular disease. 5. History of traumatic brain injury. PLAN: 1. Admit to the medical surgical floor. 2. Start empiric treatment for diabetic foot infection with Unasyn and vancomycin. 3. Will ask my colleagues to consult with Dr. Abbott in the morning to see if he would like to proceed with MRI to see if further surgical management is needed. 4. We will obtain baseline CBC, CMP, coags, ESR, and C-reactive protein. 5. Will closely monitor blood sugars and treat with correctional insulin as indicated. 6. The patient requests to be full code status. /[id number]/MODL
[2017-08-23] MEDS: INSULIN REGULAR HUMAN 100 UNIT/ML UNIT SC SCH ×2 (17:53→20:50)
[2017-08-23] MEDS: ERTAPENEM 1 GM VIAL IV SCH (17:53)
[2017-08-23] MEDS ORDERED: SULBACTAM IV SCH (18:00)
[2017-08-23] MEDS ORDERED: AMPICILLIN/SULBACTAM 1.5 GM in NS 50 ML IV SCH (18:00)
[2017-08-23] MEDS ORDERED: STERILE WATER IV SCH (18:00)
[2017-08-23] MEDS ORDERED: AMPICILLIN IV SCH (18:00)
--- NOTE | 2017-08-23 18:01 | PDMN ---
Medical Necessity Medical necessity: C/M review: est. > 2 MN LOS for eval and TX of acute and persistent left diabetic foot infection S/P amputation on 08/02/2017, poorly controlled diabetes requiring planned Wound Care consult, ongoing IV Ertapenem, IV Vancomycin, blood glucose monitoring and treat with correctional insulin as indicated, comorbid left 5th toe amputation and left heel debridement 08/02/2017 , history of coronary artery disease, traumatic brain injury, peripheral vascular disease, OH, hypertension, anemia, urinary retention, hospitalization 05/2017 for lower extremity cellulitis S/P peripheral artery angioplasty per H/ P.
[2017-08-23] MEDS: VANCOMYCIN 1.5 GM in D5W 250 ML IV SCH (18:06)
[2017-08-23 18:11] LABS: PLATELET COUNT 360 10^3/uL (150-400)
[2017-08-23 18:21] LABS: INR 1.16 (0.83-1.16)
[2017-08-23] MEDS ORDERED: SODIUM HYPOCHLORITE (DAKINS 1/4 STR) 120 ML BTL TP SCH (21:00)
[2017-08-23] MEDS: SODIUM HYPOCHLORITE (DAKINS 1/4 STR) 120 ML BTL TP SCH (22:50)
[2017-08-24] MEDS: VANCOMYCIN 1.5 GM in D5W 250 ML IV SCH (05:00)
[2017-08-24 05:30] LABS: PLATELET COUNT 433 10^3/uL (150-400)
[2017-08-24] MEDS ORDERED: VANCOMYCIN HCL/NORMAL SALINE 250 ML IV SCH (07:40)
[2017-08-24] MEDS ORDERED: PIPERACILLIN/TAZO 3.375 GM/DEX 50 ML IV SCH (07:40)
[2017-08-24] MEDS ORDERED: ATENOLOL 100 MG TAB PO SCH (07:40)
[2017-08-24] MEDS: ATORVASTATIN CALCIUM 40 MG TAB PO SCH ×2 (08:46→21:17)
[2017-08-24] MEDS: CAPSACIAN 0.075% CREAM TP SCH ×2 (08:46→22:51)
[2017-08-24] MEDS: DOCUSATE SODIUM 100 MG CAP PO SCH ×3 (08:46→21:17)
[2017-08-24] MEDS: metFORMIN HCL 500 MG TAB PO SCH ×3 (08:46→17:29)
[2017-08-24] MEDS: POVIDONE-IODINE 30 ML STERILE SOLUTION TP SCH ×3 (08:47→22:52)
[2017-08-24] MEDS: PREGABALIN 50 MG CAP PO SCH ×3 (08:47→21:29)
[2017-08-24] MEDS: ASPIRIN 81 MG CHEWABLE TAB PO SCH (08:49)
[2017-08-24] MEDS: INSULIN REGULAR HUMAN 100 UNIT/ML UNIT SC SCH ×4 (08:49→21:16)
[2017-08-24] MEDS: ATENOLOL 50 MG TAB PO SCH ×2 (08:49→21:18)
[2017-08-24] MEDS: LISINOPRIL 10 MG TAB PO SCH (08:50)
[2017-08-24] MEDS: ENOXAPARIN 40 MG/0.4 ML SYR SC SCH (08:50)
[2017-08-24] MEDS: CLOPIDOGREL BISULFATE 75 MG TAB PO SCH (08:50)
[2017-08-24] MEDS ORDERED: Herbals/Supplements -Info Only PO SCH (09:00)
[2017-08-24] MEDS: ERTAPENEM 1 GM VIAL IV SCH (09:12)
--- NOTE | 2017-08-24 09:32 | SOAPPROG ---
SOAP Progress Note Assessment/Plan: Assessment/Plan: 62-year-old gentleman with longstanding left foot peripheral vascular disease with associated infections. He has had left digit amputation in the recent past and debridement of his heel. Over the past several days the patient has had increased swelling of the entire foot redness with skin changes anteriorly he is admitted to the hospitalist service for IV antibiotics he may ultimately need below-knee amputation. Microbiology today shows gram-positive cocci on g stain and he is currently on vancomycin and ertapenem for antibiotic broad- spectrum control Dressing will be changed later on today. White blood cell count remains elevated Close monitoring of foot for worsening of current infection Below-knee amputation has been proposed to the patient several times even prior to angioplasty and debridements the patient is very resistant to definitive treatment with below-knee amputation. Wound VAC is also an alternative to twice daily dressing changes at this time. 08/24/17 09:29 Objective: Vital Signs Temp Pulse Resp BP Pulse Ox 37.2 C 84 20 174/100 H 90 L 08/24/17 07:21 08/24/17 08:49 08/24/17 07:21 08/24/17 08:50 08/24/17 07:21 Microbiology 08/22/17 16:45 Gram Stain - Final Foot - Swab Laboratory Results 08/24/17 05:19 08/24/17 05:19 08/23/17 08/24/17 08/25/17 05:59 05:59 05:59 Intake Total 150 Balance 150 PT 15.0 SEC (12.0-15.0) 08/23/17 18:04 INR 1.16 (0.83-1.16) 08/23/17 18:04 ICD10 Worksheet Patient Problems: Problems Problem Status Onset Encephalopathy acute Acute
[2017-08-24] MEDS ORDERED: VANCOMYCIN 1.25 GM in D5W 250 ML IV SCH (10:23)
--- NOTE | 2017-08-24 10:24 | PCMIDPN ---
Assessment/Plan: LLE cellulitis associated with mixed foot ulcers (diabetic, ischemic) w palpable bone, this is my first exam but other providers report improvement. Wound gram stain w GPCs. Dopplerable dorsalis pedis pulse --dc ertapenem, doubt GNR --continue vancomycin at slightly lower dose 1.25gm IV q12h for SA, streptococcus --elevated LLE --will need debridement vs BKA recent review of procedures 08/02/17 L4th, 5th toe amputation and L heal debridement 06/11/17 angioplasty of L SFA meds vancomycin 1.5 gm IV q12h, #1 ertapenem 1gm IV daily, #2 Subjective: 62 yo male with PVD and poorly controlled DM who lives at SNF following TBI with chronic problems LLE. Patient underwent angio L SFA 05/2017 and debridement 08/02/17 L 4th and 5th toe and heal (no micro or path) admitted yesterday for increasing LLE erythema and swelling and found to have leukocytosis. Patients only c/o is LLE pain Objective: Vital Signs Temp Pulse Resp BP Pulse Ox 37.2 C 84 20 174/100 H 90 L 08/24/17 07:21 08/24/17 08:49 08/24/17 07:21 08/24/17 08:50 08/24/17 07:21 Microbiology 08/22/17 16:45 Gram Stain - Final Foot - Swab Laboratory Results 08/24/17 05:19 08/24/17 05:19 08/23/17 08/24/17 08/25/17 05:59 05:59 05:59 Intake Total 150 Balance 150 ESR 89 MM/HR (0-20) H 08/23/17 18:04 C-Reactive Protein 214.9 mg/L (<10.0) H 08/23/17 18:04 - Physical Exam General Appearance: alert, obese EENT: poor dentition Respiratory: No respiratory distress, No accessory muscle use Cardiac/Chest: regular rate, rhythm (distant HS) Extremities: erythema (LEFT LE dorsum of foot and anterior aviles), other (7x5cm lateral L foot with 2 exposed metatarsals, 5x6cm heal ulcer, significant necrotic material in base), No pedal edema Peripheral Pulses: 0: dorsalis-pedis (L) (dopplerable) Abdomen: non-tender, soft Skin: pallor, No rash Neuro/Psych: alert - Time Spent With Patient Time Spent with Patient: greater than 35 minutes (Care coordinated with Mechelle Vidales NP and Bhupinder Henriquez MD) Time Spent with Patient: Greater than 35 minutes spent on this patients care, greater than 50% of time spent counseling, educating, and coordinating care regarding the above mentioned plan. ICD10 Worksheet Patient Problems: Problems Problem Status Onset Encephalopathy acute Acute
--- NOTE | 2017-08-24 11:14 | HOSPPROG ---
Hospitalist Progress Note Assessment/Plan: 62y male with left foot wounds. First encounter, chart reviewed. D/W Dr Mendes. 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 Pain ok. No other issues. Objective: Vital Signs Temp Pulse Resp BP Pulse Ox 37.2 C 84 20 174/100 H 90 L 08/24/17 07:21 08/24/17 08:49 08/24/17 07:21 08/24/17 08:50 08/24/17 07:21 Microbiology 08/22/17 16:45 Gram Stain - Final Foot - Swab Laboratory Results 08/24/17 05:19 08/24/17 05:19 08/23/17 08/24/17 08/25/17 05:59 05:59 05:59 Intake Total 150 Balance 150 PT 15.0 SEC (12.0-15.0) 08/23/17 18:04 INR 1.16 (0.83-1.16) 08/23/17 18:04 - Physical Exam Constitutional: appears nourished, chronically ill appearing, obese Eyes: PERRL, anicteric sclera, EOMI Ears, Nose, Mouth, Throat: moist mucous membranes, hearing normal, ears appear normal Cardiovascular: edema, No JVD, No tachycardia Respiratory: no respiratory distress, no rales or rhonchi, reduced air movement Gastrointestinal: normoactive bowel sounds, No tenderness, No ascites Skin: warm, erythema, induration, pressure ulcer Musculoskeletal: joint tenderness, pain with ROM, muscular tenderness, abnormal gait, generalized weakness Neurologic: AAOx3 Psychiatric: not anxious, not encephalopathic, thought process linear, poor insight, poor judgement ICD10 Worksheet Patient Problems: Problems Problem Status Onset Encephalopathy acute Acute
[2017-08-24] MEDS: SODIUM HYPOCHLORITE (DAKINS 1/4 STR) 120 ML BTL TP SCH ×2 (11:27→23:00)
[2017-08-24] MEDS: VANCOMYCIN 1.25 GM in D5W 250 ML IV SCH ×2 (12:55→22:50)
[2017-08-24] MEDS ORDERED: MELATONIN 3 MG TAB PO PRN (13:55)
[2017-08-24] MEDS ORDERED: ACETAMINOPHEN PO PRN (13:55)
[2017-08-24] MEDS ORDERED: [UNRECOGNIZED DRUG - OTHER] PO PRN (13:55)
[2017-08-24] MEDS ORDERED: OXYCODONE HCL PO PRN (13:55)
[2017-08-24] MEDS: OXYCODONE/APAP 5/325 TAB PO PRN (14:21)
[2017-08-24] MEDS: morphINE SR 30 MG TAB PO SCH ×2 (14:21→21:17)
[2017-08-24] MEDS: oxyCODONE IR 5 MG TAB PO PRN (14:22)
--- NOTE | 2017-08-24 16:03 | ASMTCMCOM ---
CM Note CM Note Notes: Pt is a resident of [facility], here for uncontrolled diabetes. May need debridement vs amputation and will likely need wound vac. Dc date unclear, CM w/f. DC Plan: [place]/ [facility] Date Signed: 08/24/2017 04:01 PM Electronically Signed By:Keysha Zarate RN
[2017-08-24] MEDS: morphINE SR 15 MG TAB PO SCH (21:18)
[2017-08-25] MEDS: oxyCODONE IR 5 MG TAB PO PRN ×3 (05:07→17:24)
[2017-08-25] MEDS: OXYCODONE/APAP 5/325 TAB PO PRN ×3 (05:07→17:24)
[2017-08-25] MEDS: DOCUSATE SODIUM 100 MG CAP PO SCH ×2 (08:40→21:33)
[2017-08-25] MEDS: CLOPIDOGREL BISULFATE 75 MG TAB PO SCH (08:40)
[2017-08-25] MEDS: INSULIN REGULAR HUMAN 100 UNIT/ML UNIT SC SCH ×4 (08:40→21:32)
[2017-08-25] MEDS: metFORMIN HCL 500 MG TAB PO SCH ×2 (08:40→17:51)
[2017-08-25] MEDS: LISINOPRIL 10 MG TAB PO SCH (08:40)
[2017-08-25] MEDS: PREGABALIN 50 MG CAP PO SCH ×2 (08:41→21:33)
[2017-08-25] MEDS: ATENOLOL 50 MG TAB PO SCH ×2 (08:41→21:33)
[2017-08-25] MEDS: morphINE SR 30 MG TAB PO SCH ×2 (08:41→21:33)
[2017-08-25] MEDS: ASPIRIN 81 MG CHEWABLE TAB PO SCH (08:41)
[2017-08-25] MEDS: morphINE SR 15 MG TAB PO SCH ×2 (08:41→21:33)
[2017-08-25] MEDS: ENOXAPARIN 40 MG/0.4 ML SYR SC SCH (08:41)
[2017-08-25] MEDS: POVIDONE-IODINE 30 ML STERILE SOLUTION TP SCH ×2 (08:42→23:20)
[2017-08-25] MEDS: SODIUM HYPOCHLORITE (DAKINS 1/4 STR) 120 ML BTL TP SCH ×2 (08:42→23:47)
--- NOTE | 2017-08-25 08:44 | SOAPPROG ---
SOAP Progress Note Assessment/Plan: Assessment/Plan: 62-year-old gentleman with longstanding left foot peripheral vascular disease with associated infections. He has had left digit amputation in the recent past and debridement of his heel. Over the past several days the patient has had increased swelling of the entire foot redness with skin changes anteriorly he is admitted to the hospitalist service for IV antibiotics he may ultimately need below-knee amputation. Microbiology today shows gram-positive cocci on g stain and he is currently on vancomycin preliminary Gram stain Staph aureus Dressing change showed exposed metatarsal laterally. Less erythema compared to earlier in the week. His erythema is responding on his anterior aviles He does have biphasic phase signal anterior tibial artery to the foot and monophasic/weak biphasic signal dorsalis pedis no posterior tibial vessel was identified on Doppler. Blood sugars remain in the 300 range suggested continued infection Close monitoring of foot for worsening of current infection. Twice daily dressing changes Below-knee amputation has been proposed to the patient several times even prior to angioplasty and debridement the patient is very resistant to definitive treatment with below-knee amputation. Wound VAC is also an alternative to twice daily dressing changes at this time. Discussed with Dr. Mendes 08/24/17 09:29 08/25/17 08:42 Objective: Vital Signs Temp Pulse Resp BP Pulse Ox 36.8 C 68 18 169/74 H 94 08/25/17 08:00 08/25/17 08:00 08/25/17 08:00 08/25/17 08:00 08/25/17 08:00 Microbiology 08/22/17 16:45 Gram Stain - Final Foot - Swab Laboratory Results 08/24/17 05:19 08/24/17 05:19 08/24/17 08/25/17 08/26/17 05:59 05:59 05:59 Intake Total 150 325 Balance 150 325 PT 15.0 SEC (12.0-15.0) 08/23/17 18:04 INR 1.16 (0.83-1.16) 08/23/17 18:04 ICD10 Worksheet Patient Problems: Problems Problem Status Onset Encephalopathy acute Acute
[2017-08-25] MEDS: VANCOMYCIN 1.25 GM in D5W 250 ML IV SCH ×2 (11:08→23:20)
--- NOTE | 2017-08-25 11:57 | HOSPPROG ---
Hospitalist Progress Note Assessment/Plan: 62y male with left foot wounds. D/W pharmacy. 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 Multiple missed at time of transfer. Subjective: Up eating breakfast. Feeling ok. Objective: Vital Signs Temp Pulse Resp BP Pulse Ox 36.8 C 74 20 148/75 H 92 08/25/17 11:39 08/25/17 11:39 08/25/17 11:39 08/25/17 11:39 08/25/17 11:39 Microbiology 08/22/17 16:45 Gram Stain - Final Foot - Swab Laboratory Results 08/24/17 05:19 08/24/17 05:19 08/24/17 08/25/17 08/26/17 05:59 05:59 05:59 Intake Total 150 325 Balance 150 325 PT 15.0 SEC (12.0-15.0) 08/23/17 18:04 INR 1.16 (0.83-1.16) 08/23/17 18:04 - Physical Exam Constitutional: not in pain, chronically ill appearing, obese Eyes: PERRL, anicteric sclera, EOMI Ears, Nose, Mouth, Throat: moist mucous membranes, hearing normal, ears appear normal Cardiovascular: edema, No JVD, No tachycardia Respiratory: no respiratory distress, no rales or rhonchi, reduced air movement Gastrointestinal: No tenderness, No ascites, No guarding Skin: warm, induration, pressure ulcer Musculoskeletal: no joint effusions, pain with ROM, generalized weakness Psychiatric: not anxious, not encephalopathic, poor insight, poor judgement, poor memory ICD10 Worksheet Patient Problems: Problems Problem Status Onset Encephalopathy acute Acute
--- NOTE | 2017-08-25 13:02 | PCMIDPN ---
Assessment/Plan: LLE cellulitis associated with mixed foot ulcers (diabetic, ischemic) w palpable bone @wound assoc with 4th, 5th amp, Continued decreased intensity of erythema. Cx shows MRSA, formal sensi pending. He does have dopplerable pulses L foot. No new labs today, AF --continue vancomycin at 1.25gm IV q12h for MRSA --check vanco trough and standard labs tomorrow at 10AM --at minimum recommended debridement of wound +/- wound vac and also discussed worse case scenario, L BKA w patient, sister and brother in law --contact isolation --check HgAIC recent review of procedures 08/02/17 L4th, 5th toe amputation and L heal debridement 06/11/17 angioplasty of L SFA meds vancomycin 1.25 gm IV q12h, #2 Subjective: patient reports decreased pain LLE tearful w discussion of amputation sister expresses frustration about difficulty improving diabetes management and wound care at [place] Objective: Vital Signs Temp Pulse Resp BP Pulse Ox 36.8 C 74 20 148/75 H 92 08/25/17 11:39 08/25/17 11:39 08/25/17 11:39 08/25/17 11:39 08/25/17 11:39 Microbiology 08/22/17 16:45 Gram Stain - Final Foot - Swab Laboratory Results 08/24/17 05:19 08/24/17 05:19 08/24/17 08/25/17 08/26/17 05:59 05:59 05:59 Intake Total 150 325 Balance 150 325 ESR 89 MM/HR (0-20) H 08/23/17 18:04 C-Reactive Protein 214.9 mg/L (<10.0) H 08/23/17 18:04 - Physical Exam General Appearance: alert, no apparent distress Respiratory: lungs clear, No accessory muscle use Cardiac/Chest: regular rate, rhythm Extremities: erythema (anterior aviles 50% less intense. Dressings not removed today - see wound exam yesterday) Skin: pallor, No rash Neuro/Psych: alert, depressed affect - Line/s RUE PICC Lines: No drainage, No erythema - Time Spent With Patient Time Spent with Patient: greater than 35 minutes (see above) Time Spent with Patient: Greater than 35 minutes spent on this patients care, greater than 50% of time spent counseling, educating, and coordinating care regarding the above mentioned plan. ICD10 Worksheet Patient Problems: Problems Problem Status Onset Encephalopathy acute Acute
[2017-08-25] MEDS: INSULIN 70/30 HUMAN 100 UNIT/ML SYR SC SCH (17:51)
[2017-08-25] MEDS: ATORVASTATIN CALCIUM 40 MG TAB PO SCH (21:33)
[2017-08-25] MEDS: CAPSACIAN 0.075% CREAM TP SCH (21:41)
[2017-08-26] MEDS: DOCUSATE SODIUM 100 MG CAP PO SCH ×2 (08:52→22:10)
[2017-08-26] MEDS: INSULIN REGULAR HUMAN 100 UNIT/ML UNIT SC SCH ×4 (08:52→22:11)
[2017-08-26] MEDS: ASPIRIN 81 MG CHEWABLE TAB PO SCH (08:53)
[2017-08-26] MEDS: PREGABALIN 50 MG CAP PO SCH ×2 (08:53→22:10)
[2017-08-26] MEDS: morphINE SR 30 MG TAB PO SCH ×2 (08:53→22:10)
[2017-08-26] MEDS: CLOPIDOGREL BISULFATE 75 MG TAB PO SCH (08:53)
[2017-08-26] MEDS: morphINE SR 15 MG TAB PO SCH ×2 (08:53→22:10)
[2017-08-26] MEDS: LISINOPRIL 10 MG TAB PO SCH (08:54)
[2017-08-26] MEDS: ATENOLOL 50 MG TAB PO SCH ×2 (08:54→22:09)
[2017-08-26] MEDS: ENOXAPARIN 40 MG/0.4 ML SYR SC SCH (08:56)
[2017-08-26] MEDS: metFORMIN HCL 500 MG TAB PO SCH ×2 (09:22→18:19)
[2017-08-26] MEDS: INSULIN 70/30 HUMAN 100 UNIT/ML SYR SC SCH ×2 (09:23→18:18)
--- NOTE | 2017-08-26 09:23 | HOSPPROG ---
Hospitalist Progress Note Assessment/Plan: 62y male with left foot wounds. Today is my 1st encounter with the patient. Chart reviewed. Reviewed his care with Dr Henriquez. 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 Objective: Vital Signs Temp Pulse Resp BP Pulse Ox 37.1 C 76 20 144/69 H 91 L 08/26/17 07:57 08/26/17 07:57 08/26/17 07:57 08/26/17 07:57 08/26/17 07:57 Microbiology 08/22/17 16:45 Gram Stain - Final Foot - Swab Laboratory Results 08/24/17 05:19 08/24/17 05:19 08/25/17 08/26/17 08/27/17 05:59 05:59 05:59 Intake Total 325 325 Balance 325 325 PT 15.0 SEC (12.0-15.0) 08/23/17 18:04 INR 1.16 (0.83-1.16) 08/23/17 18:04 - Physical Exam Constitutional: appears nourished, not in pain, chronically ill appearing Eyes: PERRL Ears, Nose, Mouth, Throat: hearing normal Cardiovascular: regular rate and rhythym Respiratory: no respiratory distress Skin: warm Musculoskeletal: generalized weakness Neurologic: AAOx3 Psychiatric: interacting appropriately, flat affect ICD10 Worksheet Patient Problems: Problems Problem Status Onset Encephalopathy acute Acute
[2017-08-26 10:37] LABS: PLATELET COUNT 436 10^3/uL (150-400)
[2017-08-26] MEDS: VANCOMYCIN 1.25 GM in D5W 250 ML IV SCH (11:35)
[2017-08-26] MEDS: POVIDONE-IODINE 30 ML STERILE SOLUTION TP SCH ×2 (12:49→22:12)
[2017-08-26] MEDS: SODIUM HYPOCHLORITE (DAKINS 1/4 STR) 120 ML BTL TP SCH ×2 (12:51→22:11)
--- NOTE | 2017-08-26 14:23 | ASMTCMCOM ---
CM Note CM Note Notes: Updates sent to [facility]. Pt is on vancomycin. Surgery is following. Pt will d/c back to [facility] when medically stable. CM to follow. Plan: [facility] Date Signed: 08/26/2017 02:23 PM Electronically Signed By:MIKA Salas
--- NOTE | 2017-08-26 16:09 | PCMIDPN ---
Assessment/Plan: Assessment: Left lower extremity arterial insufficiency status post angioplasty May 2017. Patient may have an overlying cellulitis in the area however I am concerned about the appearance of necrosis and dry wounds on the left foot. The dorsal foot wound appearing over the past week with necrotic tissue is concerning that there is poor circulation to the distal foot. Will continue vancomycin coverage for MRSA. Recommend CT angiogram of abdomen with runoff to evaluate large vessel integrity. Plan: 1. Continue vancomycin. 2. Follow up on vancomycin trough. 3. CT angiogram with runoff. 4. Continue ongoing discussion with surgery about potential for retaining left lower leg. 08/26/17 18:25 08/26/17 18:30 Subjective: Patient is resting in his hospital bed. He is not very talkative. His family members are asking most of the questions. Patient makes a clear that he wants to keep his left lower extremity. No fevers or chills. Objective: Vancomycin # 2 Vital Signs Temp Pulse Resp BP Pulse Ox 36.9 C 78 20 154/85 H 92 08/26/17 12:00 08/26/17 12:00 08/26/17 12:00 08/26/17 12:00 08/26/17 12:00 Microbiology 08/22/17 16:45 Gram Stain - Final Foot - Swab Wound Culture - Final MRSA Laboratory Results 08/26/17 10:20 08/26/17 10:20 08/25/17 08/26/17 08/27/17 05:59 05:59 05:59 Intake Total 325 325 Balance 325 325 ESR 89 MM/HR (0-20) H 08/23/17 18:04 C-Reactive Protein 214.9 mg/L (<10.0) H 08/23/17 18:04 - Physical Exam General Appearance: WD/WN, alert, no apparent distress, obese, non-toxic Respiratory: lungs clear, normal breath sounds, No respiratory distress Cardiac/Chest: regular rate, rhythm, No tachycardia Extremities: non-tender, swelling, necrosis, No normal inspection, No inflammation Skin: normal color, warm/dry, No rash Neuro/Psych: alert, normal mood/affect, oriented x 3 ICD10 Worksheet Patient Problems: Problems Problem Status Onset Encephalopathy acute Acute
--- NOTE | 2017-08-26 16:31 | SOAPPROG ---
SOAP Progress Note Assessment/Plan: Assessment/Plan: 62-year-old gentleman with longstanding left foot peripheral vascular disease with associated infections. He has had left digit amputation in the recent past and debridement of his heel. Over the past several days the patient has had increased swelling of the entire foot redness with skin changes anteriorly he is admitted to the hospitalist service for IV antibiotics he may ultimately need below-knee amputation. Microbiology today shows gram-positive cocci on g stain and he is currently on vancomycin FINAL MRSA. Dressing change showed exposed metatarsal laterally. Less erythema compared to earlier in the week. His erythema is responding on his anterior aviles He does have biphasic phase signal anterior tibial artery to the foot and monophasic/weak biphasic signal dorsalis pedis no posterior tibial vessel was identified on Doppler. Blood sugars remain in the 300 range suggested continued infection Close monitoring of foot for worsening of current infection. Twice daily dressing changes Below-knee amputation has been proposed to the patient several times even prior to angioplasty and debridement the patient is very resistant to definitive treatment with below-knee amputation. Wound VAC is also an alternative to twice daily dressing changes at this time. Discussed with Dr. Bradford. [place] arterial inflow 08/26/17 16:25 08/26/17 16:31 Objective: Vital Signs Temp Pulse Resp BP Pulse Ox 36.8 C 74 18 133/83 H 92 08/26/17 16:00 08/26/17 16:00 08/26/17 16:00 08/26/17 16:00 08/26/17 16:00 Microbiology 08/22/17 16:45 Gram Stain - Final Foot - Swab Wound Culture - Final MRSA Laboratory Results 08/26/17 10:20 08/26/17 10:20 08/25/17 08/26/17 08/27/17 05:59 05:59 05:59 Intake Total 325 325 Balance 325 325 PT 15.0 SEC (12.0-15.0) 08/23/17 18:04 INR 1.16 (0.83-1.16) 08/23/17 18:04 ICD10 Worksheet Patient Problems: Problems Problem Status Onset Encephalopathy acute Acute
[2017-08-26] MEDS ORDERED: IOPAMIDOL (ISOVUE 370) 100 ML BTL IV ONE (17:10)
--- NOTE | 2017-08-26 20:24 | SOAPPROG ---
SOAP Progress Note Assessment/Plan: Assessment:patient without complaints. afebrile. lateral wound with excellent new granulation since last week - exposed metatarsal new. plantar eschar with less progression. erythema and edema markedly improved from last week. dorsal foot eschar clean. WBC 13. BG 190-300. high risk diabetic foot infection. partially improved. long discussion with family regarding prognosis. they are aware that if attempted foot salvage is not tenable, a BKA will be necessary. a wound vac was attempted at [place] - this was not able to maintained the week prior to this admission. given his notable improvement in swelling, this would be an appropriate next step. cont IV ABX/MRSA coverage. cont BG optimization. Plan: 08/23/17 14:38 08/26/17 20:19 08/26/17 20:24 Objective: Vital Signs Temp Pulse Resp BP Pulse Ox 36.9 C 87 20 157/72 H 92 08/26/17 20:00 08/26/17 20:00 08/26/17 20:00 08/26/17 20:00 08/26/17 20:00 Microbiology 08/22/17 16:45 Gram Stain - Final Foot - Swab Wound Culture - Final MRSA Laboratory Results 08/26/17 10:20 08/26/17 10:20 08/25/17 08/26/17 08/27/17 05:59 05:59 05:59 Intake Total 478 674 6830 Balance 124 007 1041 PT 15.0 SEC (12.0-15.0) 08/23/17 18:04 INR 1.16 (0.83-1.16) 08/23/17 18:04 ICD10 Worksheet Patient Problems: Problems Problem Status Onset Encephalopathy acute Acute
[2017-08-26] MEDS: ATORVASTATIN CALCIUM 40 MG TAB PO SCH (22:10)
[2017-08-26] MEDS: CAPSACIAN 0.075% CREAM TP SCH (22:21)
[2017-08-27] MEDS: VANCOMYCIN 1.25 GM in D5W 250 ML IV SCH ×3 (00:04→23:00)
[2017-08-27] MEDS: ASPIRIN 81 MG CHEWABLE TAB PO SCH (10:01)
[2017-08-27] MEDS: PREGABALIN 50 MG CAP PO SCH ×2 (10:02→23:01)
[2017-08-27] MEDS: morphINE SR 30 MG TAB PO SCH ×2 (10:02→23:01)
[2017-08-27] MEDS: DOCUSATE SODIUM 100 MG CAP PO SCH ×2 (10:02→23:01)
[2017-08-27] MEDS: CLOPIDOGREL BISULFATE 75 MG TAB PO SCH (10:02)
[2017-08-27] MEDS: LISINOPRIL 10 MG TAB PO SCH (10:02)
[2017-08-27] MEDS: morphINE SR 15 MG TAB PO SCH ×2 (10:02→23:00)
[2017-08-27] MEDS: INSULIN REGULAR HUMAN 100 UNIT/ML UNIT SC SCH ×4 (10:03→22:54)
[2017-08-27] MEDS: metFORMIN HCL 500 MG TAB PO SCH ×2 (10:03→18:49)
[2017-08-27] MEDS: ATENOLOL 50 MG TAB PO SCH ×2 (10:03→23:00)
[2017-08-27] MEDS: ENOXAPARIN 40 MG/0.4 ML SYR SC SCH (10:04)
[2017-08-27] MEDS: INSULIN 70/30 HUMAN 100 UNIT/ML SYR SC SCH ×4 (10:04→18:56)
[2017-08-27] MEDS: POVIDONE-IODINE 30 ML STERILE SOLUTION TP SCH ×2 (10:05→23:02)
[2017-08-27] MEDS: SODIUM HYPOCHLORITE (DAKINS 1/4 STR) 120 ML BTL TP SCH ×2 (10:05→23:02)
--- NOTE | 2017-08-27 11:00 | HOSPPROG ---
Hospitalist Progress Note Assessment/Plan: 62y male with left foot wounds. #LLE cellulitis with MRSA -placed on precautions -mixed foot ulcers (diabetic, ischemic) w palpable bone -vancomycin per ID -elevated LLE -surgery following -no Doppler pulse on left foot -08/02/17 L4th, 5th toe amputation and L heal debridement #PVD -chronic #elevated LFT's #DM -have changed sliding to high dose, in addition have added 5 units of insulin tid with meals -A1c 10.7 -ADA diet - 70/30, bid -poor control -on Januvia, metformin, sliding scale #Leukocytosis -in the setting of infection #Hx of TBI -at baseline #Hx CAD -stable #Dispo -will need to return to senior care care at [facility] #plan: increased insulin dosing to see if glucoses improve, if not, will ask endocrine to see Subjective: Abdoulaye is tired, has no complaints x that his foot is tender. Objective: Vital Signs Temp Pulse Resp BP Pulse Ox 36.8 C 73 20 130/65 H 94 08/27/17 08:00 08/27/17 08:00 08/27/17 08:00 08/27/17 08:00 08/27/17 08:00 Microbiology 08/22/17 16:45 Gram Stain - Final Foot - Swab Wound Culture - Final MRSA Laboratory Results 08/26/17 10:20 08/26/17 10:20 08/26/17 08/27/17 08/28/17 05:59 05:59 05:59 Intake Total 325 1550 Balance 325 1550 PT 15.0 SEC (12.0-15.0) 08/23/17 18:04 INR 1.16 (0.83-1.16) 08/23/17 18:04 - Physical Exam Constitutional: chronically ill appearing, obese Ears, Nose, Mouth, Throat: hearing normal Cardiovascular: regular rate and rhythym Respiratory: no respiratory distress Gastrointestinal: normoactive bowel sounds Skin: warm, No normal color (pale) Neurologic: AAOx3 Psychiatric: interacting appropriately ICD10 Worksheet Patient Problems: Problems Problem Status Onset Encephalopathy acute Acute
--- NOTE | 2017-08-27 14:53 | PCMIDPN ---
Assessment/Plan: # LLE cellulitis associated with mixed foot ulcers (diabetic, ischemic) w palpable bone @wound assoc with 4th, 5th amp, Resolution of erythema, but as expected heal and lateral toe/foot wound unchanged with necrotic material in the base. Cx shows MRSA, underwent CTA today, awaiting results --contact precautions --discussed need for debridement vs amputation --continue IV vancomycin --check labs tomorrow in light of IV contrast today # DM: HgAIC = 10, c/w very poor control recent review of procedures 08/02/17 L4th, 5th toe amputation and L heal debridement 06/11/17 angioplasty of L SFA meds vancomycin 1.25 gm IV q12h, #4 Subjective: no c/o today Objective: Vital Signs Temp Pulse Resp BP Pulse Ox 36.6 C 79 16 123/61 H 92 08/27/17 11:57 08/27/17 11:57 08/27/17 11:57 08/27/17 11:57 08/27/17 11:57 Microbiology 08/22/17 16:45 Gram Stain - Final Foot - Swab Wound Culture - Final MRSA Laboratory Results 08/26/17 10:20 08/26/17 10:20 08/26/17 08/27/17 08/28/17 05:59 05:59 05:59 Intake Total 325 1550 Balance 325 1550 ESR 89 MM/HR (0-20) H 08/23/17 18:04 C-Reactive Protein 214.9 mg/L (<10.0) H 08/23/17 18:04 General Appearance: alert, no apparent distress Respiratory: lungs clear, No accessory muscle use Cardiac/Chest: regular rate, rhythm Extremities: pinkness L anterior foot, irregular superficial wound on dorsum of foot - ischemic appearing; large lateral wound over 4, 5th met with exposed bone and necrotic material in base of wound, foot warm, heal ulcer with eschar ; pulses not palpable Skin: pallor, No rash Neuro/Psych: alert, depressed affect RUE PICC: No drainage, No erythema ICD10 Worksheet Patient Problems: Problems Problem Status Onset Encephalopathy acute Acute
--- NOTE | 2017-08-27 15:35 | SOAPPROG ---
SOAP Progress Note Assessment/Plan: Assessment:no overnight concerns. afebrile. wounds all clean - heel/dorsal foot eschar debrided. will plan for wound vac placement tomorrow. cautious optimism - patient aware that BKA may ultimately be necessary if doesn't heal. care plan reviewed with dr. arroyo and extensively with family last evening. patient without complaints. afebrile. lateral wound with excellent new granulation since last week - exposed metatarsal new. plantar eschar with less progression. erythema and edema markedly improved from last week. dorsal foot eschar clean. WBC 13. BG 190-300. high risk diabetic foot infection. partially improved. long discussion with family regarding prognosis. they are aware that if attempted foot salvage is not tenable, a BKA will be necessary. a wound vac was attempted at [place] - this was not able to maintained the week prior to this admission. given his notable improvement in swelling, this would be an appropriate next step. cont IV ABX/MRSA coverage. cont BG optimization. Plan: 08/23/17 14:38 08/26/17 20:19 08/26/17 20:24 08/27/17 15:33 Objective: Vital Signs Temp Pulse Resp BP Pulse Ox 36.6 C 79 16 123/61 H 92 08/27/17 11:57 08/27/17 11:57 08/27/17 11:57 08/27/17 11:57 08/27/17 11:57 Microbiology 08/22/17 16:45 Gram Stain - Final Foot - Swab Wound Culture - Final MRSA Laboratory Results 08/26/17 10:20 08/26/17 10:20 08/26/17 08/27/17 08/28/17 05:59 05:59 05:59 Intake Total 325 1550 Balance 325 1550 PT 15.0 SEC (12.0-15.0) 08/23/17 18:04 INR 1.16 (0.83-1.16) 08/23/17 18:04 ICD10 Worksheet Patient Problems: Problems Problem Status Onset Encephalopathy acute Acute
[2017-08-27] MEDS ORDERED: INSULIN REGULAR HUMAN 100 UNIT/ML UNIT SC SCH (18:00)
[2017-08-27] MEDS: ATORVASTATIN CALCIUM 40 MG TAB PO SCH (23:01)
[2017-08-27] MEDS: CAPSACIAN 0.075% CREAM TP SCH (23:02)
[2017-08-28 05:27] LABS: PLATELET COUNT 423 10^3/uL (150-400)
--- NOTE | 2017-08-28 08:29 | SOAPPROG ---
SOAP Progress Note Assessment/Plan: Assessment/Plan: 62-year-old gentleman with longstanding left foot peripheral vascular disease with associated infections. He has had left digit amputation in the recent past and debridement of his heel. Over the past several days the patient has had increased swelling of the entire foot redness with skin changes anteriorly he is admitted to the hospitalist service for IV antibiotics he may ultimately need below-knee amputation. Currently on vancomycin FINAL MRSA. Dressing change showed exposed metatarsal laterally. Less erythema compared to earlier in the week. His erythema is responding on his anterior aviles He does have biphasic phase signal anterior tibial artery to the foot and monophasic/weak biphasic signal dorsalis pedis no posterior tibial vessel was identified on Doppler. Slow improvement in wound beds. Some devitalized tissue sharply debrided this am Less edema Erythema resolving WBC elevated but slowing decreasing 12K this am Wound vac today 08/26/17 16:25 08/26/17 16:31 08/28/17 08:26 Objective: Vital Signs Temp Pulse Resp BP Pulse Ox 36.7 C 76 16 141/75 H 94 08/28/17 07:32 08/28/17 07:32 08/28/17 07:32 08/28/17 07:32 08/28/17 07:32 Microbiology 08/22/17 16:45 Gram Stain - Final Foot - Swab Wound Culture - Final MRSA Laboratory Results 08/28/17 05:10 08/28/17 05:10 08/27/17 08/28/17 08/29/17 05:59 05:59 05:59 Intake Total 1550 Balance 1550 PT 15.0 SEC (12.0-15.0) 08/23/17 18:04 INR 1.16 (0.83-1.16) 08/23/17 18:04 ICD10 Worksheet Patient Problems: Problems Problem Status Onset Encephalopathy acute Acute
[2017-08-28] MEDS: INSULIN REGULAR HUMAN 100 UNIT/ML UNIT SC SCH ×8 (08:43→23:26)
[2017-08-28] MEDS: ENOXAPARIN 40 MG/0.4 ML SYR SC SCH (08:44)
[2017-08-28] MEDS: CLOPIDOGREL BISULFATE 75 MG TAB PO SCH (08:44)
[2017-08-28] MEDS: LISINOPRIL 10 MG TAB PO SCH (08:45)
[2017-08-28] MEDS: morphINE SR 15 MG TAB PO SCH ×2 (08:45→21:23)
[2017-08-28] MEDS: PREGABALIN 50 MG CAP PO SCH ×2 (08:49→21:22)
[2017-08-28] MEDS: morphINE SR 30 MG TAB PO SCH ×2 (08:49→21:23)
[2017-08-28] MEDS: ASPIRIN 81 MG CHEWABLE TAB PO SCH (08:49)
[2017-08-28] MEDS: metFORMIN HCL 500 MG TAB PO SCH ×2 (08:50→17:54)
[2017-08-28] MEDS: DOCUSATE SODIUM 100 MG CAP PO SCH ×2 (08:50→21:23)
[2017-08-28] MEDS: ATENOLOL 50 MG TAB PO SCH ×2 (08:50→21:22)
[2017-08-28] MEDS: INSULIN 70/30 HUMAN 100 UNIT/ML SYR SC SCH ×2 (09:58→18:44)
[2017-08-28] MEDS: POVIDONE-IODINE 30 ML STERILE SOLUTION TP SCH ×2 (10:12→21:23)
[2017-08-28] MEDS: ALTEPLASE 2 MG VIAL IVP PRN (10:14)
[2017-08-28] MEDS: VANCOMYCIN 1.25 GM in D5W 250 ML IV SCH ×2 (11:20→23:09)
--- NOTE | 2017-08-28 14:11 | ASMTCMCOM ---
CM Note CM Note Notes: Plan remains the same, pt will dc back to [facility] when medically stable, CM faxed Angie updated notes. DC Plan: [place] Date Signed: 08/28/2017 02:10 PM Electronically Signed By:Keysha Zarate RN
[2017-08-28] MEDS: SODIUM HYPOCHLORITE (DAKINS 1/4 STR) 120 ML BTL TP SCH ×2 (15:37→20:31)
--- NOTE | 2017-08-28 15:58 | HOSPPROG ---
Hospitalist Progress Note Assessment/Plan: 62y male with left foot wounds. #LLE cellulitis with MRSA -placed on precautions -mixed foot ulcers (diabetic, ischemic) w palpable bone -vancomycin per ID -elevated LLE -surgery following -no Doppler pulse on left foot -08/02/17 L4th, 5th toe amputation and L heal debridement -to get wound vac placed today #PVD -chronic #elevated LFT's -resolved #DM -have changed sliding to high dose, in addition have added 3 units of insulin tid with meals -A1c 10.7 -ADA diet - 70/30, bid -poor control -on Januvia, metformin, sliding scale -glucoses have improved, explained to [place] that eating cookies, pizza are affecting his glucoses, doubtful he will stop eating these foods #Leukocytosis -in the setting of infection #Hx of TBI -at baseline #Hx CAD -stable #Dispo -will need to return to terminal worker care at SN[facility] #plan: wound vac Subjective: [place] said his foot hurts a bit, wants to continue eating sweets. Objective: Vital Signs Temp Pulse Resp BP Pulse Ox 37.1 C 79 16 121/74 H 96 08/28/17 15:23 08/28/17 15:23 08/28/17 15:23 08/28/17 15:23 08/28/17 15:23 Laboratory Results 08/28/17 05:10 08/28/17 05:10 08/27/17 08/28/17 08/29/17 05:59 05:59 05:59 Intake Total 1550 Balance 1550 PT 15.0 SEC (12.0-15.0) 08/23/17 18:04 INR 1.16 (0.83-1.16) 08/23/17 18:04 - Physical Exam Constitutional: appears nourished, chronically ill appearing Eyes: PERRL Ears, Nose, Mouth, Throat: hearing normal Cardiovascular: regular rate and rhythym Respiratory: no respiratory distress Gastrointestinal: normoactive bowel sounds Skin: warm, No normal color (pale) Musculoskeletal: generalized weakness Neurologic: AAOx3 Psychiatric: interacting appropriately, poor insight, poor judgement ICD10 Worksheet Patient Problems: Problems Problem Status Onset Encephalopathy acute Acute
[2017-08-28] MEDS: OXYCODONE/APAP 5/325 TAB PO PRN (16:09)
--- NOTE | 2017-08-28 16:16 | PCMIDPN ---
Assessment/Plan: # LLE cellulitis associated with mixed foot ulcers (diabetic, ischemic) w palpable bone @wound assoc with 4th, 5th amp, Resolution of erythema, but as expected heal and lateral toe/foot wound s/p debridement at bedside yesterday w much less necrotic material. Cx shows MRSA --assisted w prep for wound vac today. Problem is patient use L foot to move when in wheel chair. Will see if wound vac stays in place. --persistent PVD on CT angio, surg prefers to hold of on treatment --continue vancomycin, vanco T 12.9 today, no changes; Cr 0.8 # DM: HgAIC = 10, c/w very poor control; patient unwilling to change diet recent review of procedures 08/02/17 L4th, 5th toe amputation and L heal debridement 06/11/17 angioplasty of L SFA meds vancomycin 1.25 gm IV q12h, #5 Subjective: I will do anything but eat a diabetic diet, that will starve me to Objective: Vital Signs Temp Pulse Resp BP Pulse Ox 37.1 C 79 16 121/74 H 96 08/28/17 15:23 08/28/17 15:23 08/28/17 15:23 08/28/17 15:23 08/28/17 15:23 Laboratory Results 08/28/17 05:10 08/28/17 05:10 08/27/17 08/28/17 08/29/17 05:59 05:59 05:59 Intake Total 1550 Balance 1550 ESR 89 MM/HR (0-20) H 08/23/17 18:04 C-Reactive Protein 80.8 mg/L (<10.0) H 08/28/17 05:10 - Physical Exam General Appearance: alert, no apparent distress Respiratory: No accessory muscle use Extremities: erythema (much improved anterior aviles; no erythema remains on foot) , other (WOUND HEAL 4 X 4CM; LATERAL FOOT OVER 4,5TH MET 4.5 X 3CM ; WOUND ON DORSUM) Skin: pallor, No diaphoresis, No rash - Line/s RUE PICC Lines: No drainage, No erythema - Time Spent With Patient Time Spent with Patient: greater than 25 minutes Time Spent with Patient: Greater than 25 minutes spent on this patients care, greater than 50% of time spent counseling, educating, and coordinating care regarding the above mentioned plan. ICD10 Worksheet Patient Problems: Problems Problem Status Onset Encephalopathy acute Acute
--- NOTE | 2017-08-28 17:12 | SOAPPROG ---
SOAP Progress Note Assessment/Plan: Assessment: no complaints. afebrile. heal and dorsal foot wounds swimming pool cleaner than yesterday - less necrotic material. lateral foot wound granulating well. wound care team at bedside - discussed wound vac strategy with them - to be applied qMWF. cautious optimism regarding leg salvage. no overnight concerns. afebrile. wounds all clean - heel/dorsal foot eschar debrided. will plan for wound vac placement tomorrow. cautious optimism - patient aware that BKA may ultimately be necessary if doesn't heal. care plan reviewed with dr. arroyo and extensively with family last evening. patient without complaints. afebrile. lateral wound with excellent new granulation since last week - exposed metatarsal new. plantar eschar with less progression. erythema and edema markedly improved from last week. dorsal foot eschar clean. WBC 13. BG 190-300. high risk diabetic foot infection. partially improved. long discussion with family regarding prognosis. they are aware that if attempted foot salvage is not tenable, a BKA will be necessary. a wound vac was attempted at [place] - this was not able to maintained the week prior to this admission. given his notable improvement in swelling, this would be an appropriate next step. cont IV ABX/MRSA coverage. cont BG optimization. Plan: 08/23/17 14:38 08/26/17 20:19 08/26/17 20:24 08/27/17 15:33 08/28/17 17:10 Objective: Vital Signs Temp Pulse Resp BP Pulse Ox 37.1 C 79 16 121/74 H 96 08/28/17 15:23 08/28/17 15:23 08/28/17 15:23 08/28/17 15:23 08/28/17 15:23 Laboratory Results 08/28/17 05:10 08/28/17 05:10 08/27/17 08/28/17 08/29/17 05:59 05:59 05:59 Intake Total 1550 Balance 1550 PT 15.0 SEC (12.0-15.0) 08/23/17 18:04 INR 1.16 (0.83-1.16) 08/23/17 18:04 ICD10 Worksheet Patient Problems: Problems Problem Status Onset Encephalopathy acute Acute
--- NOTE | 2017-08-28 18:26 | WOCRNPDOC ---
NANCICRKyree Advanced Assessment Note - Skin Integrity Problem, Advanced Assess Left Heel Diabetic Ulcer Dressing Type: Christopher Bandage, Vaseline Gauze Dressing Exudate Amount: Minimal Exudate Color: Reddish/Yellow Exudate Characteristic(s): Serosanguinous Integumentary Issue Intervention: Dressing Changed Bernice Wound Tissue: Xerotic Bernice Wound Swelling: Mild Wound Bed Color: Black, [place], Yellow Wound Bed Constitution: Red/[place] - Non Granular Tissue, Subcutaneous Fat, Adhered Slough Wound Edges: Attached, Well Defined Site Measurement - Head-to-Toe Length X Width X Depth (cm): 6.5x6x1 Skin Integrity Problem Comment: Was asked to place wound vac to this gentleman' s foot by Dr. Abbott and Dr. Henriquez. Prachi, [employer], in room to assist. Patient's foot cleaned with warm washrags to loosen extremely dry, flaky skin. Bernice wound skin prepped with skin prep and draped in the normal fashion. Single piece of black simplace foam was used in wound bed. A bridge was created to the interior lower leg where suction was applied. Good seal was achieved at -125mmHg low continuous suction. Patient tolerated the procedure well. Wound care will round again on Saturday. Left Lateral Foot Diabetic Ulcer Dressing Type: Christopher Bandage, Vaseline Gauze Dressing Dressing Description: Intact, Shadowed Exudate Amount: Minimal Exudate Color: Reddish/Yellow Exudate Characteristic(s): Serosanguinous Integumentary Issue Intervention: Dressing Changed Bernice Wound Tissue: Erythema, Swollen, Xerotic Bernice Wound Swelling: Mild Wound Bed Color: [place], Yellow Wound Bed Constitution: Red/[place] - Non Granular Tissue, Bone (5th metatarsal), Adhered Slough Wound Edges: Attached, Well Defined Site Measurement - Head-to-Toe Length X Width X Depth (cm): 6.5x4x0.5 Skin Integrity Problem Comment: Bernice wound skin prepped with skin prep and draped in the normal fashion. Two pieces white foam placed in wound bed - one in contact with 5th metatarsal, and the other over a firm area just beneath the 4th toe, suspicious for bone. A single piece of black simplace foam was used to cover the entire wound bed. A bridge was created to the interior lower leg where suction was applied. Good seal was achieved at -125mmHg low continuous suction. Left Dorsal Foot Diabetic Ulcer Dressing Type: Christopher Bandage, Vaseline Gauze Dressing Exudate Amount: None Integumentary Issue Intervention: Dressing Changed Bernice Wound Tissue: Xerotic Wound Bed Color: Yellow Wound Bed Constitution: Adhered Slough Wound Edges: Attached, Well Defined Site Measurement - Head-to-Toe Length X Width X Depth (cm): 4x3x0.5 Skin Integrity Problem Comment: Patient's foot cleaned with warm washrags to loosen extremely dry, flaky skin. Bernice wound skin prepped with skin prep and draped in the normal fashion. Single piece of black simplace foam was used in wound bed. A bridge was created to the interior lower leg where suction was applied. Good seal was achieved at -125mmHg low continuous suction.
[2017-08-28] MEDS: ATORVASTATIN CALCIUM 40 MG TAB PO SCH (21:22)
[2017-08-28] MEDS: CAPSACIAN 0.075% CREAM TP SCH (23:27)
[2017-08-29] MEDS: INSULIN REGULAR HUMAN 100 UNIT/ML UNIT SC SCH ×6 (08:05→20:54)
--- NOTE | 2017-08-29 08:14 | SOAPPROG ---
SOAP Progress Note Assessment/Plan: Assessment: no overnight issues. wound vac patched last [place] - holding well today am. afebrile. vac intact. no foot erythema. 4th digit cracking clean. cont aggressive wound care / vac therapy. will reassess tomorrow. no complaints. afebrile. heal and dorsal foot wounds cleaner furniture than yesterday - less necrotic material. lateral foot wound granulating well. wound care team at bedside - discussed wound vac strategy with them - to be applied qMWF. cautious optimism regarding leg salvage. no overnight concerns. afebrile. wounds all clean - heel/dorsal foot eschar debrided. will plan for wound vac placement tomorrow. cautious optimism - patient aware that BKA may ultimately be necessary if doesn't heal. care plan reviewed with dr. arroyo and extensively with family last evening. patient without complaints. afebrile. lateral wound with excellent new granulation since last week - exposed metatarsal new. plantar eschar with less progression. erythema and edema markedly improved from last week. dorsal foot eschar clean. WBC 13. BG 190-300. high risk diabetic foot infection. partially improved. long discussion with family regarding prognosis. they are aware that if attempted foot salvage is not tenable, a BKA will be necessary. a wound vac was attempted at [place] - this was not able to maintained the week prior to this admission. given his notable improvement in swelling, this would be an appropriate next step. cont IV ABX/MRSA coverage. cont BG optimization. Plan: 08/23/17 14:38 08/26/17 20:19 08/26/17 20:24 08/27/17 15:33 08/28/17 17:10 08/29/17 08:13 Objective: Vital Signs Temp Pulse Resp BP Pulse Ox 36.5 C 77 18 123/70 H 91 L 08/29/17 07:30 08/29/17 07:30 08/29/17 07:30 08/29/17 07:30 08/29/17 07:30 Laboratory Results 08/28/17 05:10 08/28/17 05:10 08/28/17 08/29/17 08/30/17 05:59 05:59 05:59 Intake Total 500 Balance 500 PT 15.0 SEC (12.0-15.0) 08/23/17 18:04 INR 1.16 (0.83-1.16) 08/23/17 18:04 ICD10 Worksheet Patient Problems: Problems Problem Status Onset Encephalopathy acute Acute
[2017-08-29] MEDS: ATENOLOL 50 MG TAB PO SCH ×2 (09:12→20:52)
[2017-08-29] MEDS: PREGABALIN 50 MG CAP PO SCH ×2 (09:13→20:52)
[2017-08-29] MEDS: LISINOPRIL 10 MG TAB PO SCH (09:13)
[2017-08-29] MEDS: morphINE SR 30 MG TAB PO SCH ×2 (09:13→20:52)
[2017-08-29] MEDS: morphINE SR 15 MG TAB PO SCH ×2 (09:13→20:52)
[2017-08-29] MEDS: CLOPIDOGREL BISULFATE 75 MG TAB PO SCH (09:13)
[2017-08-29] MEDS: ASPIRIN 81 MG CHEWABLE TAB PO SCH (09:14)
[2017-08-29] MEDS: DOCUSATE SODIUM 100 MG CAP PO SCH ×2 (09:14→20:52)
[2017-08-29] MEDS: metFORMIN HCL 500 MG TAB PO SCH ×2 (09:14→18:39)
[2017-08-29] MEDS: ENOXAPARIN 40 MG/0.4 ML SYR SC SCH (09:15)
[2017-08-29] MEDS: SODIUM HYPOCHLORITE (DAKINS 1/4 STR) 120 ML BTL TP SCH ×2 (09:39→20:53)
[2017-08-29] MEDS: POVIDONE-IODINE 30 ML STERILE SOLUTION TP SCH ×2 (10:21→20:53)
[2017-08-29] MEDS: INSULIN 70/30 HUMAN 100 UNIT/ML SYR SC SCH ×2 (11:21→18:39)
[2017-08-29] MEDS: VANCOMYCIN 1.25 GM in D5W 250 ML IV SCH (12:35)
--- NOTE | 2017-08-29 14:37 | HOSPPROG ---
Hospitalist Progress Note Assessment/Plan: 62y male with left foot wounds. Reviewed his care with Dr Abbott, recommendation is to have patient stay through the weekend for close monitoring of he wound. #LLE cellulitis with MRSA -placed on precautions -mixed foot ulcers (diabetic, ischemic) w palpable bone -vancomycin per ID -elevated LLE -surgery following -no Doppler pulse on left foot -08/02/17 L4th, 5th toe amputation and L heal debridement -wound vac #PVD -chronic #elevated LFT's -resolved #DM -have changed sliding to high dose -A1c 10.7 -ADA diet - 70/30, bid -poor control -on Januvia, metformin, sliding scale -glucoses have improved, dropped a bit quickly, will dc additional insulin #Leukocytosis -in the setting of infection #Hx of TBI -at baseline #Hx CAD -stable #Dispo -will need to return to halfway care at [facility] #plan: dc pending, dc extra insulin doses. Subjective: [place] is feeling fine,no complaints. Objective: Vital Signs Temp Pulse Resp BP Pulse Ox 36.8 C 80 16 111/60 93 08/29/17 11:28 08/29/17 11:28 08/29/17 11:28 08/29/17 11:28 08/29/17 11:28 Laboratory Results 08/28/17 05:10 08/28/17 05:10 08/28/17 08/29/17 08/30/17 05:59 05:59 05:59 Intake Total 500 Balance 500 PT 15.0 SEC (12.0-15.0) 08/23/17 18:04 INR 1.16 (0.83-1.16) 08/23/17 18:04 - Physical Exam Constitutional: chronically ill appearing Eyes: PERRL Ears, Nose, Mouth, Throat: hearing normal Cardiovascular: regular rate and rhythym Respiratory: no respiratory distress Gastrointestinal: normoactive bowel sounds Skin: warm, other (wound vac in place on left foot, foot warm, unable to palpate dp pulse) Neurologic: AAOx3 Psychiatric: poor insight, poor judgement, poor memory ICD10 Worksheet Patient Problems: Problems Problem Status Onset Encephalopathy acute Acute
--- NOTE | 2017-08-29 17:56 | PCMIDPN ---
Assessment/Plan: Assessment: Left lower extremity arterial insufficiency status post angioplasty May 2017. Patient may have an overlying cellulitis in the area however I am concerned about the appearance of necrosis and dry wounds on the left foot. Patient has had repeated debridements and now has wound VAC on the foot. CT angiogram with runoff indicative of possible recurrence of stenosis of the arterial tree on the left lower extremity. Continuing to cover with vancomycin secondary to MRSA isolation from the area. Will follow wound healing. Plan: 1. Continue vancomycin. 2. Follow up on vancomycin trough. 3. Follow clinical course. 08/29/17 17:57 08/29/17 17:58 Subjective: Patient is resting in his hospital bed. Continues to maintain that he does not wear aviles amputation. No new events. No fevers or chills. Objective: Vancomycin # 6 Vital Signs Temp Pulse Resp BP Pulse Ox 36.8 C 77 18 126/61 H 94 08/29/17 15:35 08/29/17 15:35 08/29/17 15:35 08/29/17 15:35 08/29/17 15:35 Laboratory Results 08/28/17 05:10 08/28/17 05:10 08/28/17 08/29/17 08/30/17 05:59 05:59 05:59 Intake Total 500 Balance 500 ESR 89 MM/HR (0-20) H 08/23/17 18:04 C-Reactive Protein 80.8 mg/L (<10.0) H 08/28/17 05:10 - Physical Exam General Appearance: WD/WN, alert, no apparent distress, non-toxic Respiratory: lungs clear, normal breath sounds, No respiratory distress Cardiac/Chest: regular rate, rhythm, No tachycardia Extremities: non-tender, No normal inspection Skin: normal color, warm/dry, No rash Neuro/Psych: alert, normal mood/affect, oriented x 3 ICD10 Worksheet Patient Problems: Problems Problem Status Onset Encephalopathy acute Acute
[2017-08-29] MEDS: ATORVASTATIN CALCIUM 40 MG TAB PO SCH (20:52)
[2017-08-29] MEDS: CAPSACIAN 0.075% CREAM TP SCH (20:53)
[2017-08-29] MEDS: VANCOMYCIN 1.25 GM in NS 250 ML IV SCH (22:58)
[2017-08-30] MEDS: INSULIN REGULAR HUMAN 100 UNIT/ML UNIT SC SCH ×4 (08:18→21:08)
[2017-08-30] MEDS: LISINOPRIL 10 MG TAB PO SCH (08:33)
[2017-08-30] MEDS: DOCUSATE SODIUM 100 MG CAP PO SCH ×2 (08:34→21:07)
[2017-08-30] MEDS: CLOPIDOGREL BISULFATE 75 MG TAB PO SCH (08:35)
[2017-08-30] MEDS: metFORMIN HCL 500 MG TAB PO SCH ×2 (08:35→18:33)
[2017-08-30] MEDS: ASPIRIN 81 MG CHEWABLE TAB PO SCH (08:35)
[2017-08-30] MEDS: ATENOLOL 50 MG TAB PO SCH ×2 (08:36→21:07)
[2017-08-30] MEDS: INSULIN 70/30 HUMAN 100 UNIT/ML SYR SC SCH ×2 (08:38→18:33)
[2017-08-30] MEDS: ENOXAPARIN 40 MG/0.4 ML SYR SC SCH (08:39)
[2017-08-30] MEDS: morphINE SR 15 MG TAB PO SCH ×2 (08:45→21:07)
[2017-08-30] MEDS: PREGABALIN 50 MG CAP PO SCH ×2 (08:45→21:07)
[2017-08-30] MEDS: morphINE SR 30 MG TAB PO SCH ×2 (08:45→21:07)
[2017-08-30] MEDS: SODIUM HYPOCHLORITE (DAKINS 1/4 STR) 120 ML BTL TP SCH ×2 (09:01→21:18)
--- NOTE | 2017-08-30 09:54 | PCMIDPN ---
Assessment/Plan: 1. Left lower extremity cellulitis/diabetic foot secondary to MRSA in patient with severe PAD/poorly controlled diabetes: I am very worried about his leg/foot moving forward. Suspect ultimately he will need a BKA, but for now will forge ahead with vancomycin, end date not clear to me, likely another week or so, but this depends on the appearance of his wounds beneath the VAC. Wound VAC to be changed today. Recent vancomycin level is fine. 25 min was spent with this patient today. Subjective: Patient very apathetic about his overall situation. Does not want to eat our hospital's diabetic diet. Can't really feel his feet secondary to neuropathy. No diarrhea. Objective: Vancomycin 1.25 g q.12 hours day 7 Afebrile Vital Signs Temp Pulse Resp BP Pulse Ox 36.9 C 82 12 114/66 92 08/30/17 07:58 08/30/17 08:36 08/30/17 07:58 08/30/17 08:36 08/30/17 07:58 Laboratory Results 08/28/17 05:10 08/28/17 05:10 08/29/17 08/30/17 08/31/17 05:59 05:59 05:59 Intake Total 500 400 Balance 500 400 ESR 89 MM/HR (0-20) H 08/23/17 18:04 C-Reactive Protein 80.8 mg/L (<10.0) H 08/28/17 05:10 Wound culture with MRSA - Physical Exam General Appearance: no apparent distress, obese EENT: poor dentition, No thrush Respiratory: lungs clear Cardiac/Chest: regular rate, rhythm, other (Difficult to hear heart sounds secondary to body habitus) Extremities: other (Left lower extremity with swelling and diffuse erythema from the leg down. Wound VAC in place covering wounds that wrapped around his leg medially. Patient really has no sensation in this area. The foot is warm, not cold with diffuse blanching erythema.) ICD10 Worksheet Patient Problems: Problems Problem Status Onset Encephalopathy acute Acute
--- NOTE | 2017-08-30 10:25 | HOSPPROG ---
Hospitalist Progress Note Assessment/Plan: 62y male with left foot wounds. Reviewed his care with Dr Abbott, recommendation is to have patient stay through the weekend for close monitoring of he wound. 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
--- NOTE | 2017-08-30 10:25 | ASMTCMCOM ---
CM Note CM Note Notes: Per ID MD note, pt will be here through the weekend. Updates sent to [facility], plan remains the same, will dc back to [facility] when medicallly stable. JOHN w/f. DC Plan: [facility] Date Signed: 08/30/2017 10:24 AM Electronically Signed By:Keysha Zarate RN
[2017-08-30] MEDS: POVIDONE-IODINE 30 ML STERILE SOLUTION TP SCH ×2 (10:52→21:11)
[2017-08-30] MEDS: VANCOMYCIN 1.25 GM in NS 250 ML IV SCH ×2 (10:57→22:03)
--- NOTE | 2017-08-30 16:37 | WOCRNPDOC ---
[facility] Advanced Assessment Note - Skin Integrity Problem, Advanced Assess Left Heel Diabetic Ulcer Dressing Type: Black Vac Foam, Wound Vac Exudate Amount: Minimal Exudate Color: Red Exudate Characteristic(s): Bloody Integumentary Issue Intervention: Dressing Changed Bernice Wound Tissue: Blanching, Erythema, Macerated, Swollen Bernice Wound Swelling: Mild Wound Bed Color: Black, Red, Yellow Wound Bed Constitution: Granulation Tissue (30%), Red/Amagon - Non Granular Tissue (40%), Mixed Loose & Adhered Slough/Eschar (30%) Site Odor: None Site Measurement - Head-to-Toe Length X Width X Depth (cm): 6.2cmx6.1cmx0.9cm Skin Integrity Problem Comment: Dr. Scar dumas debrided necrotic tissue at the bedside. Hemostasis achieved w/ pressure. Mixed adhered slough and eschar, mostly in medial aspect of wound bed. Remaining tissue beefy, red, and bloody. Mild periwound maceration along distal margin of wound, to which both skin prep and Mastisol were applied. Periwound skin prepped and draped, and 1 piece of black foam was placed in wound bed. A second piece of black foam was used to bridge dressing to medial LLE. Vac settings resume at 125mmHg, low, continuous suction; no apparent leaks. vacuum tester cans Jaimi present and assisting. Left Lateral Foot Diabetic Ulcer Dressing Type: Black Vac Foam, White Vac Foam, Wound Vac Exudate Amount: Moderate Exudate Color: Red Exudate Characteristic(s): Bloody Integumentary Issue Intervention: Dressing Changed Bernice Wound Tissue: Blanching, Erythema, Swollen, Denuded, Thin Bernice Wound Swelling: Moderate Wound Bed Color: Red, Yellow Wound Bed Constitution: Granulation Tissue, Red/Amagon - Non Granular Tissue, Bone (5th met) Site Odor: None Site Measurement - Head-to-Toe Length X Width X Depth (cm): 6.4cmx4.1cmx0.4cm Skin Integrity Problem Comment: Dr. Abbott debrided adhered slough from this wound at the bedside. Beefy, bloody tissue throughout wound bed. There remains palpable bone in distal aspect of wound bed, though now w/ granulation tissue beginning to cover. Periwound skin is thin and fragile, but otherwise intact. White vac foam placed over medial aspect of wound bed over palpable bone, followed by one piece of white foam. Additional piece of [place] vac foam used to bridge along plantar aspect of L foot up to LLE. Vac settings resume at - 125mmHg w/ no leaks. vacuum tester cans Jaimi assisting. Left Dorsal Foot Diabetic Ulcer Dressing Type: Black Vac Foam, Wound Vac Exudate Amount: Minimal Exudate Color: Red Exudate Characteristic(s): Bloody Integumentary Issue Intervention: Dressing Changed Bernice Wound Tissue: Blanching, Erythema, Swollen, Thin Bernice Wound Swelling: Mild Wound Bed Color: Red, Yellow Wound Bed Constitution: Granulation Tissue, Red/Amagon - Non Granular Tissue, Adhered Slough Site Odor: None Site Measurement - Head-to-Toe Length X Width X Depth (cm): 3.9cmx2.9cmx0.4cm Skin Integrity Problem Comment: Dr. Abbott debrided adhered slough from this wound at the bedside, after which wound bed predominantly beefy, bloody tissue. Pressure held for a few minutes to achieve hemostasis. Some adhered slough remains medially. Periwound skin has blanching erythema and mild swelling throughout. One piece of black vac foam placed into wound bed and bridged up to medial LLE. Vac settings resume at -125mmHG, low continuous suction. vacuum tester cans Jaimi present and assisting.
--- NOTE | 2017-08-30 16:49 | HOSPPROG ---
Hospitalist Progress Note Assessment/Plan: 62y male with left foot wounds. #LLE cellulitis with MRSA -placed on precautions -mixed foot ulcers (diabetic, ischemic) w palpable bone -vancomycin per ID -elevated LLE -surgery following -no Doppler pulse on left foot -08/02/17 L4th, 5th toe amputation and L heal debridement -wound vac #PVD -chronic #elevated LFT's -resolved #DM -have changed sliding to high dose -A1c 10.7 -ADA diet - 70/30, bid -on Januvia, metformin, sliding scale -glucoses have improved, dropped a bit quickly, will dc additional insulin #Leukocytosis -in the setting of infection #Hx of TBI -at baseline #Hx CAD -stable #Dispo -will need to return to fdc care at [facility] #plan: Glucoses have almost completely normalized. Concerned this may be dropping his sugars too low. The patient says he feels fine with this. If continue to be low may need to decrease his 70 30 insulin dosing. Subjective: [place] says he is feeling overall fine Objective: Vital Signs Temp Pulse Resp BP Pulse Ox 37.1 C 81 20 144/80 H 91 L 08/30/17 11:48 08/30/17 11:48 08/30/17 11:48 08/30/17 11:48 08/30/17 11:48 Laboratory Results 08/28/17 05:10 08/28/17 05:10 08/29/17 08/30/17 08/31/17 05:59 05:59 05:59 Intake Total 500 400 Balance 500 400 PT 15.0 SEC (12.0-15.0) 08/23/17 18:04 INR 1.16 (0.83-1.16) 08/23/17 18:04 - Physical Exam Constitutional: not in pain, chronically ill appearing Eyes: PERRL Ears, Nose, Mouth, Throat: hearing normal Cardiovascular: regular rate and rhythym Respiratory: no respiratory distress Skin: warm, other (Wound VAC being replaced today by the wound care nurse. Unable to palpate his DP are PT pulse), No normal color (pale) Neurologic: AAOx3 Psychiatric: interacting appropriately ICD10 Worksheet Patient Problems: Problems Problem Status Onset Encephalopathy acute Acute
--- NOTE | 2017-08-30 16:51 | SOAPPROG ---
SOAP Progress Note Assessment/Plan: Assessment: good night. afebrile. wounds all appear clean with less necrosis. no further erythema. edema improved. exposed metatarsal excised back to firm, cancellous bleeding bone. plantar and dorsal foot wounds sharply debrided back to bleeding tissue. wound vac being replaced by wound care nurse. cont inpt care plan at least until foot begins to better declare itself. i remain optimistic on limb salvage. no overnight issues. wound vac patched last ritchie - holding well today am. afebrile. vac intact. no foot erythema. 4th digit cracking clean. cont aggressive wound care / vac therapy. will reassess tomorrow. no complaints. afebrile. heal and dorsal foot wounds stitch cleaner than yesterday - less necrotic material. lateral foot wound granulating well. wound care team at bedside - discussed wound vac strategy with them - to be applied qMWF. cautious optimism regarding leg salvage. no overnight concerns. afebrile. wounds all clean - heel/dorsal foot eschar debrided. will plan for wound vac placement tomorrow. cautious optimism - patient aware that BKA may ultimately be necessary if doesn't heal. care plan reviewed with dr. arroyo and extensively with family last evening. patient without complaints. afebrile. lateral wound with excellent new granulation since last week - exposed metatarsal new. plantar eschar with less progression. erythema and edema markedly improved from last week. dorsal foot eschar clean. WBC 13. BG 190-300. high risk diabetic foot infection. partially improved. long discussion with family regarding prognosis. they are aware that if attempted foot salvage is not tenable, a BKA will be necessary. a wound vac was attempted at [place] - this was not able to maintained the week prior to this admission. given his notable improvement in swelling, this would be an appropriate next step. cont IV ABX/MRSA coverage. cont BG optimization. Plan: 08/23/17 14:38 08/26/17 20:19 08/26/17 20:24 08/27/17 15:33 08/28/17 17:10 08/29/17 08:13 08/30/17 16:46 Objective: Vital Signs Temp Pulse Resp BP Pulse Ox 37.1 C 81 20 144/80 H 91 L 08/30/17 11:48 08/30/17 11:48 08/30/17 11:48 08/30/17 11:48 08/30/17 11:48 Laboratory Results 08/28/17 05:10 08/28/17 05:10 08/29/17 08/30/17 08/31/17 05:59 05:59 05:59 Intake Total 500 400 Balance 500 400 PT 15.0 SEC (12.0-15.0) 08/23/17 18:04 INR 1.16 (0.83-1.16) 08/23/17 18:04 ICD10 Worksheet Patient Problems: Problems Problem Status Onset Encephalopathy acute Acute
[2017-08-30] MEDS: ATORVASTATIN CALCIUM 40 MG TAB PO SCH (21:07)
[2017-08-30] MEDS: CAPSACIAN 0.075% CREAM TP SCH (21:11)
[2017-08-31] MEDS: CLOPIDOGREL BISULFATE 75 MG TAB PO SCH (09:39)
[2017-08-31] MEDS: ASPIRIN 81 MG CHEWABLE TAB PO SCH (09:40)
[2017-08-31] MEDS: ATENOLOL 50 MG TAB PO SCH ×2 (09:40→20:59)
[2017-08-31] MEDS: LISINOPRIL 10 MG TAB PO SCH (09:40)
[2017-08-31] MEDS: morphINE SR 30 MG TAB PO SCH ×2 (09:40→21:00)
[2017-08-31] MEDS: morphINE SR 15 MG TAB PO SCH ×2 (09:41→21:00)
[2017-08-31] MEDS: INSULIN 70/30 HUMAN 100 UNIT/ML SYR SC SCH ×2 (09:41→17:33)
[2017-08-31] MEDS: metFORMIN HCL 500 MG TAB PO SCH ×2 (09:41→17:34)
[2017-08-31] MEDS: PREGABALIN 50 MG CAP PO SCH ×2 (09:41→21:00)
[2017-08-31] MEDS: INSULIN REGULAR HUMAN 100 UNIT/ML UNIT SC SCH ×4 (09:42→21:00)
[2017-08-31] MEDS: DOCUSATE SODIUM 100 MG CAP PO SCH ×2 (09:42→21:00)
[2017-08-31] MEDS: ENOXAPARIN 40 MG/0.4 ML SYR SC SCH (09:42)
[2017-08-31] MEDS: POVIDONE-IODINE 30 ML STERILE SOLUTION TP SCH ×2 (09:43→21:13)
[2017-08-31] MEDS: SODIUM HYPOCHLORITE (DAKINS 1/4 STR) 120 ML BTL TP SCH ×2 (09:43→21:14)
[2017-08-31] MEDS: VANCOMYCIN 1.25 GM in NS 250 ML IV SCH ×2 (12:01→22:02)
--- NOTE | 2017-08-31 13:10 | PCMIDPN ---
Assessment/Plan: Assessment/Plan: * Left lower extremity cellulitis due to MRSA with underlying peripheral vascular disease and diabetes mellitus: Visible portion of cellulitis clinically improving with some wrinkling of skin and decreased intensity of erythema. Will repeat assessment Saturday when wound VAC change this will likely be critical determinate of patient's care going forward in terms of resolution with antibiotic therapy and wound care versus potential need for BKA. Will assess creatinine today on vancomycin therapy and obtain vancomycin trough tomorrow. 08/31/17 13:05 08/31/17 13:10 Subjective: Patient without specific complaints. No itching or rash with vancomycin. Objective: Vital Signs Temp Pulse Resp BP Pulse Ox 36.8 C 73 16 120/77 94 08/31/17 12:00 08/31/17 12:00 08/31/17 12:00 08/31/17 12:00 08/31/17 12:00 Laboratory Results 08/28/17 05:10 08/28/17 05:10 08/30/17 08/31/17 09/01/17 05:59 05:59 05:59 Intake Total 400 Balance 400 ESR 89 MM/HR (0-20) H 08/23/17 18:04 C-Reactive Protein 80.8 mg/L (<10.0) H 08/28/17 05:10 Vancomycin # 8 Laboratory Tests 08/28/17 10:00 Vancomycin Trough 12.9 - Physical Exam General Appearance: alert, no apparent distress EENT: No scleral icterus, No thrush Respiratory: lungs clear, No respiratory distress Cardiac/Chest: regular rate, rhythm Extremities: inflammation (Left lower extremity with faint erythema over anterior aviles which is receding from previously demarcated line; some wrinkling of skin consistent with decreasing edema; wound VAC in place) Abdomen: non-tender, No distended ICD10 Worksheet Patient Problems: Problems Problem Status Onset Encephalopathy acute Acute
--- NOTE | 2017-08-31 14:28 | SOAPPROG ---
SOAP Progress Note Assessment/Plan: Assessment: no new issues. avss. VAC intact - min leak at present. foot stable. will reassess saturday. good night. afebrile. wounds all appear clean with less necrosis. no further erythema. edema improved. exposed metatarsal excised back to firm, cancellous bleeding bone. plantar and dorsal foot wounds sharply debrided back to bleeding tissue. wound vac being replaced by wound care nurse. cont inpt care plan at least until foot begins to better declare itself. i remain optimistic on limb salvage. no overnight issues. wound vac patched last ritchie - holding well today am. afebrile. vac intact. no foot erythema. 4th digit cracking clean. cont aggressive wound care / vac therapy. will reassess tomorrow. no complaints. afebrile. heal and dorsal foot wounds cleaner wall than yesterday - less necrotic material. lateral foot wound granulating well. wound care team at bedside - discussed wound vac strategy with them - to be applied qMWF. cautious optimism regarding leg salvage. no overnight concerns. afebrile. wounds all clean - heel/dorsal foot eschar debrided. will plan for wound vac placement tomorrow. cautious optimism - patient aware that BKA may ultimately be necessary if doesn't heal. care plan reviewed with dr. arroyo and extensively with family last evening. patient without complaints. afebrile. lateral wound with excellent new granulation since last week - exposed metatarsal new. plantar eschar with less progression. erythema and edema markedly improved from last week. dorsal foot eschar clean. WBC 13. BG 190-300. high risk diabetic foot infection. partially improved. long discussion with family regarding prognosis. they are aware that if attempted foot salvage is not tenable, a BKA will be necessary. a wound vac was attempted at [place] - this was not able to maintained the week prior to this admission. given his notable improvement in swelling, this would be an appropriate next step. cont IV ABX/MRSA coverage. cont BG optimization. Plan: 08/23/17 14:38 08/26/17 20:19 08/26/17 20:24 08/27/17 15:33 08/28/17 17:10 08/29/17 08:13 08/30/17 16:46 08/31/17 14:27 Objective: Vital Signs Temp Pulse Resp BP Pulse Ox 36.8 C 73 16 120/77 94 08/31/17 12:00 08/31/17 12:00 08/31/17 12:00 08/31/17 12:00 08/31/17 12:00 Laboratory Results 08/28/17 05:10 08/31/17 14:00 08/30/17 08/31/17 09/01/17 05:59 05:59 05:59 Intake Total 400 Balance 400 PT 15.0 SEC (12.0-15.0) 08/23/17 18:04 INR 1.16 (0.83-1.16) 08/23/17 18:04 ICD10 Worksheet Patient Problems: Problems Problem Status Onset Encephalopathy acute Acute
--- NOTE | 2017-08-31 14:56 | HOSPPROG ---
Hospitalist Progress Note Assessment/Plan: 62y male with left foot wounds. #LLE cellulitis with MRSA -placed on precautions -mixed foot ulcers (diabetic, ischemic) w palpable bone -vancomycin per ID -elevated LLE -surgery following -no Doppler pulse on left foot -08/02/17 L4th, 5th toe amputation and L heal debridement -wound vac #PVD -chronic #elevated LFT's -resolved #DM -have changed sliding to high dose -A1c 10.7 -ADA diet - 70/30, bid -on Januvia, metformin, sliding scale -glucoses have improved #Leukocytosis -in the setting of infection #Hx of TBI -at baseline #Hx CAD -stable #plan: Dr Vaughn to assess patient's foot on Saturday to help decide treatment plan Subjective: [place] has no complaints. Tired of being in the hospital. Objective: Vital Signs Temp Pulse Resp BP Pulse Ox 36.8 C 73 16 120/77 94 08/31/17 12:00 08/31/17 12:00 08/31/17 12:00 08/31/17 12:00 08/31/17 12:00 Laboratory Results 08/28/17 05:10 08/31/17 14:00 08/30/17 08/31/17 09/01/17 05:59 05:59 05:59 Intake Total 400 Balance 400 PT 15.0 SEC (12.0-15.0) 08/23/17 18:04 INR 1.16 (0.83-1.16) 08/23/17 18:04 - Physical Exam Constitutional: not in pain, chronically ill appearing Eyes: PERRL Ears, Nose, Mouth, Throat: hearing normal Respiratory: no respiratory distress Gastrointestinal: normoactive bowel sounds Skin: warm, other (wound vac in place on left lower ext.), No normal color ( pale ) Musculoskeletal: generalized weakness Neurologic: AAOx3 Psychiatric: poor insight ICD10 Worksheet Patient Problems: Problems Problem Status Onset Encephalopathy acute Acute
[2017-08-31] MEDS: ATORVASTATIN CALCIUM 40 MG TAB PO SCH (21:00)
[2017-08-31] MEDS: CAPSACIAN 0.075% CREAM TP SCH (21:13)
[2017-09-01 05:20] LABS: PLATELET COUNT 394 10^3/uL (150-400)
[2017-09-01] MEDS: CLOPIDOGREL BISULFATE 75 MG TAB PO SCH (08:24)
[2017-09-01] MEDS: ATENOLOL 50 MG TAB PO SCH ×3 (08:24→22:21)
[2017-09-01] MEDS: ENOXAPARIN 40 MG/0.4 ML SYR SC SCH (08:24)
[2017-09-01] MEDS: LISINOPRIL 10 MG TAB PO SCH (08:24)
[2017-09-01] MEDS: ASPIRIN 81 MG CHEWABLE TAB PO SCH (08:24)
[2017-09-01] MEDS: INSULIN REGULAR HUMAN 100 UNIT/ML UNIT SC SCH ×4 (08:25→22:21)
[2017-09-01] MEDS: PREGABALIN 50 MG CAP PO SCH ×2 (08:25→20:19)
[2017-09-01] MEDS: morphINE SR 15 MG TAB PO SCH ×2 (08:25→20:19)
[2017-09-01] MEDS: metFORMIN HCL 500 MG TAB PO SCH ×2 (08:25→17:54)
[2017-09-01] MEDS: morphINE SR 30 MG TAB PO SCH ×2 (08:25→20:19)
[2017-09-01] MEDS: DOCUSATE SODIUM 100 MG CAP PO SCH ×2 (08:25→20:19)
[2017-09-01] MEDS: INSULIN 70/30 HUMAN 100 UNIT/ML SYR SC SCH ×2 (08:26→22:20)
[2017-09-01] MEDS: POVIDONE-IODINE 30 ML STERILE SOLUTION TP SCH ×2 (08:27→20:21)
[2017-09-01] MEDS: SODIUM HYPOCHLORITE (DAKINS 1/4 STR) 120 ML BTL TP SCH ×2 (08:27→19:55)
--- NOTE | 2017-09-01 10:17 | SOAPPROG ---
SOAP Progress Note Assessment/Plan: Assessment: up in chair. no complaints. afebrile. foot without erythema. VAC without leak. reassess in am. hopeful return to SNF this week if wound care can be accomplished. apprec ID input re: abx. BG better controlled - apprec IM assist. no new issues. avss. VAC intact - min leak at present. foot stable. will reassess saturday. good night. afebrile. wounds all appear clean with less necrosis. no further erythema. edema improved. exposed metatarsal excised back to firm, cancellous bleeding bone. plantar and dorsal foot wounds sharply debrided back to bleeding tissue. wound vac being replaced by wound care nurse. cont inpt care plan at least until foot begins to better declare itself. i remain optimistic on limb salvage. no overnight issues. wound vac patched last ritchie - holding well today am. afebrile. vac intact. no foot erythema. 4th digit cracking clean. cont aggressive wound care / vac therapy. will reassess tomorrow. no complaints. afebrile. heal and dorsal foot wounds vacuum cleaner operator than yesterday - less necrotic material. lateral foot wound granulating well. wound care team at bedside - discussed wound vac strategy with them - to be applied qMWF. cautious optimism regarding leg salvage. no overnight concerns. afebrile. wounds all clean - heel/dorsal foot eschar debrided. will plan for wound vac placement tomorrow. cautious optimism - patient aware that BKA may ultimately be necessary if doesn't heal. care plan reviewed with dr. arroyo and extensively with family last evening. patient without complaints. afebrile. lateral wound with excellent new granulation since last week - exposed metatarsal new. plantar eschar with less progression. erythema and edema markedly improved from last week. dorsal foot eschar clean. WBC 13. BG 190-300. high risk diabetic foot infection. partially improved. long discussion with family regarding prognosis. they are aware that if attempted foot salvage is not tenable, a BKA will be necessary. a wound vac was attempted at [place] - this was not able to maintained the week prior to this admission. given his notable improvement in swelling, this would be an appropriate next step. cont IV ABX/MRSA coverage. cont BG optimization. Plan: 08/23/17 14:38 08/26/17 20:19 08/26/17 20:24 08/27/17 15:33 08/28/17 17:10 08/29/17 08:13 08/30/17 16:46 08/31/17 14:27 09/01/17 10:15 Objective: Vital Signs Temp Pulse Resp BP Pulse Ox 36.7 C 71 16 141/73 H 94 09/01/17 07:51 09/01/17 08:24 09/01/17 07:51 09/01/17 08:24 09/01/17 07:51 Laboratory Results 09/01/17 05:10 09/01/17 05:10 08/31/17 09/01/17 09/02/17 05:59 05:59 05:59 Intake Total 150 Output Total 1050 Balance -900 PT 15.0 SEC (12.0-15.0) 08/23/17 18:04 INR 1.16 (0.83-1.16) 08/23/17 18:04 ICD10 Worksheet Patient Problems: Problems Problem Status Onset Encephalopathy acute Acute
[2017-09-01] MEDS: VANCOMYCIN 1.25 GM in NS 250 ML IV SCH ×2 (11:29→23:11)
--- NOTE | 2017-09-01 11:59 | HOSPPROG ---
Hospitalist Progress Note Assessment/Plan: #LLE MRSA cellulitis -IV Vanc #Foot ulcer (diabetic/ischemic): -amputation Left 5th toe amputation 08/02/17 -wound vac in place. Salvage of foot will be very difficult; Dr. Abbott has talked with them extensively and may need BKA #Hypoglycemia: 64 this morning -unusual sliding scale for NPH. Will readjust a scheduled dose #Uncontrolled DM: decreased evening dose to 15units, 30qam -Metformin, Januvia #Chronic PVD: -ASA,statin,Plavix #CAD: ASA,statin, Plavix, BB #TBI: at baseline #HTN: Lisinopril, BB #DVT ppx: Lovenox #Disp: warrants inpatient admission for IV abx Subjective: no pain. Hypoglycemic to 64 this morning Objective: Vital Signs Temp Pulse Resp BP Pulse Ox 36.6 C 69 16 119/82 H 94 09/01/17 11:18 09/01/17 11:18 09/01/17 11:18 09/01/17 11:18 09/01/17 11:18 Laboratory Results 09/01/17 05:10 09/01/17 05:10 08/31/17 09/01/17 09/02/17 05:59 05:59 05:59 Intake Total 150 Output Total 1050 Balance -900 PT 15.0 SEC (12.0-15.0) 08/23/17 18:04 INR 1.16 (0.83-1.16) 08/23/17 18:04 - Physical Exam Constitutional: obese Eyes: PERRL Ears, Nose, Mouth, Throat: moist mucous membranes Cardiovascular: regular rate and rhythym Respiratory: no respiratory distress Gastrointestinal: normoactive bowel sounds Genitourinary: no bladder fullness Skin: warm Musculoskeletal: other (left foot with wound vac. Foot is red) Neurologic: AAOx3, CN II-XII Intact Psychiatric: interacting appropriately ICD10 Worksheet Patient Problems: Problems Problem Status Onset Encephalopathy acute Acute
[2017-09-01] MEDS: ALTEPLASE 2 MG VIAL IVP PRN ×2 (16:17→18:20)
[2017-09-01] MEDS: CAPSACIAN 0.075% CREAM TP SCH (19:54)
[2017-09-01] MEDS: ATORVASTATIN CALCIUM 40 MG TAB PO SCH (20:19)
[2017-09-01] MEDS ORDERED: INSULIN 70/30 HUMAN 100 UNIT/ML SYR SC SCH (21:00)
[2017-09-02] MEDS: morphINE SR 30 MG TAB PO SCH ×2 (09:25→20:28)
[2017-09-02] MEDS: PREGABALIN 50 MG CAP PO SCH ×2 (09:26→20:27)
[2017-09-02] MEDS ORDERED: ALTEPLASE 2 MG VIAL IVP PRN (09:26)
[2017-09-02] MEDS: LISINOPRIL 10 MG TAB PO SCH (09:27)
[2017-09-02] MEDS: metFORMIN HCL 500 MG TAB PO SCH ×2 (09:28→17:26)
[2017-09-02] MEDS: INSULIN REGULAR HUMAN 100 UNIT/ML UNIT SC SCH ×4 (09:28→22:36)
[2017-09-02] MEDS: DOCUSATE SODIUM 100 MG CAP PO SCH ×2 (09:28→20:28)
[2017-09-02] MEDS: CLOPIDOGREL BISULFATE 75 MG TAB PO SCH (09:28)
[2017-09-02] MEDS: ASPIRIN 81 MG CHEWABLE TAB PO SCH (09:28)
[2017-09-02] MEDS: INSULIN 70/30 HUMAN 100 UNIT/ML SYR SC SCH ×2 (09:29→20:28)
[2017-09-02] MEDS: ATENOLOL 50 MG TAB PO SCH ×2 (09:30→20:26)
[2017-09-02] MEDS: POVIDONE-IODINE 30 ML STERILE SOLUTION TP SCH ×2 (09:38→20:29)
[2017-09-02] MEDS: SODIUM HYPOCHLORITE (DAKINS 1/4 STR) 120 ML BTL TP SCH ×2 (09:38→20:24)
[2017-09-02] MEDS: ENOXAPARIN 40 MG/0.4 ML SYR SC SCH (09:38)
[2017-09-02] MEDS: morphINE SR 15 MG TAB PO SCH ×2 (09:38→20:26)
--- NOTE | 2017-09-02 09:43 | PCMIDPN ---
Assessment/Plan: Assessment: Left lower extremity arterial insufficiency status post angioplasty May 2017. He does not appear to have active infection the surrounding his ulcerations. His wounds appear to have slightly more improved appearance of the tissue and some increased granulation although I think overall this will be a very challenging thing for this patient to heal. CT angiogram with runoff indicative of possible recurrence of stenosis of the arterial tree on the left lower extremity. We will replace the PICC line due to clotting. Will repeat vancomycin trough. Plan: 1. Continue vancomycin. 2. Follow up on vancomycin trough. 3. Follow clinical course. Subjective: Patient is resting in his hospital bed. Wound VAC is off presently. Patient complains of issues with vascular access. Otherwise no complaints. Objective: Vancomycin # 10 Vital Signs Temp Pulse Resp BP Pulse Ox 36.6 C 83 18 159/87 H 95 09/02/17 08:00 09/02/17 09:30 09/02/17 08:00 09/02/17 09:30 09/02/17 08:00 Laboratory Results 09/01/17 05:10 09/01/17 05:10 09/01/17 09/02/17 09/03/17 05:59 05:59 05:59 Intake Total 150 Output Total 1050 Balance -900 ESR 89 MM/HR (0-20) H 08/23/17 18:04 C-Reactive Protein 80.8 mg/L (<10.0) H 08/28/17 05:10 - Physical Exam General Appearance: WD/WN, alert, no apparent distress, non-toxic Respiratory: lungs clear, normal breath sounds, No respiratory distress Cardiac/Chest: regular rate, rhythm, No tachycardia Extremities: non-tender, erythema (Mild), other (Multiple ulcerations of left foot over heal, dorsum of the foot and lateral aspect), No normal inspection Skin: normal color, warm/dry, No rash Neuro/Psych: alert, normal mood/affect, oriented x 3 ICD10 Worksheet Patient Problems: Problems Problem Status Onset Encephalopathy acute Acute
--- NOTE | 2017-09-02 10:42 | SOAPPROG ---
SOAP Progress Note Assessment/Plan: Assessment: wounds significantly improved. lateral foot granulation beefier - prior bone excision site with overlying soft tissue. plantar wound with new peripheral granulation - central tissue with small progress - still a bit pokey. dorsal foot wound clean with thin fibrinous debris. no further foot erythema. edema resolved. good progress. recc cont wound vac. vanco x2 wks per ID. does not need further angioplasty. i remain optimistic on the prospects of limb salvage. care plan reviewed with dr. goodrich. up in chair. no complaints. afebrile. foot without erythema. VAC without leak. reassess in am. hopeful return to SNF this week if wound care can be accomplished. apprec ID input re: abx. BG better controlled - apprec IM assist. no new issues. avss. VAC intact - min leak at present. foot stable. will reassess saturday. good night. afebrile. wounds all appear clean with less necrosis. no further erythema. edema improved. exposed metatarsal excised back to firm, cancellous bleeding bone. plantar and dorsal foot wounds sharply debrided back to bleeding tissue. wound vac being replaced by wound care nurse. cont inpt care plan at least until foot begins to better declare itself. i remain optimistic on limb salvage. no overnight issues. wound vac patched last [place] - holding well today am. afebrile. vac intact. no foot erythema. 4th digit cracking clean. cont aggressive wound care / vac therapy. will reassess tomorrow. no complaints. afebrile. heal and dorsal foot wounds cabin cleaner than yesterday - less necrotic material. lateral foot wound granulating well. wound care team at bedside - discussed wound vac strategy with them - to be applied qMWF. cautious optimism regarding leg salvage. no overnight concerns. afebrile. wounds all clean - heel/dorsal foot eschar debrided. will plan for wound vac placement tomorrow. cautious optimism - patient aware that BKA may ultimately be necessary if doesn't heal. care plan reviewed with dr. arroyo and extensively with family last evening. patient without complaints. afebrile. lateral wound with excellent new granulation since last week - exposed metatarsal new. plantar eschar with less progression. erythema and edema markedly improved from last week. dorsal foot eschar clean. WBC 13. BG 190-300. high risk diabetic foot infection. partially improved. long discussion with family regarding prognosis. they are aware that if attempted foot salvage is not tenable, a BKA will be necessary. a wound vac was attempted at [place] - this was not able to maintained the week prior to this admission. given his notable improvement in swelling, this would be an appropriate next step. cont IV ABX/MRSA coverage. cont BG optimization. Plan: 08/23/17 14:38 08/26/17 20:19 08/26/17 20:24 08/27/17 15:33 08/28/17 17:10 08/29/17 08:13 08/30/17 16:46 08/31/17 14:27 09/01/17 10:15 09/02/17 10:39 Objective: Vital Signs Temp Pulse Resp BP Pulse Ox 36.6 C 83 18 159/87 H 95 09/02/17 08:00 09/02/17 09:30 09/02/17 08:00 09/02/17 09:30 09/02/17 08:00 Laboratory Results 09/01/17 05:10 09/01/17 05:10 09/01/17 09/02/17 09/03/17 05:59 05:59 05:59 Intake Total 150 Output Total 1050 Balance -900 PT 15.0 SEC (12.0-15.0) 08/23/17 18:04 INR 1.16 (0.83-1.16) 08/23/17 18:04 ICD10 Worksheet Patient Problems: Problems Problem Status Onset Encephalopathy acute Acute
--- NOTE | 2017-09-02 12:15 | HOSPPROG ---
Hospitalist Progress Note Assessment/Plan: 62y male with left foot wounds. D/W Dr Bradford #Hypotension: resolved No sxs. 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 Salvage of foot will be very difficult; Dr. Abbott has talked with them extensively and may need BKA #Hypoglycemia: in the am unusual sliding scale for NPH. Will readjust a scheduled dose #Uncontrolled DM: 70/30 decreased evening dose to 15units, 30qam -Metformin, Januvia per sister pt has been on 100qam and 30hs in the past follow labs #Chronic PVD: -ASA,statin,Plavix #CAD: ASA,statin, Plavix, BB #TBI: at baseline #HTN: Lisinopril, BB #DVT ppx: Lovenox #Disp: warrants inpatient admission for IV abx Subjective: Feeling ok. No issues. Objective: Vital Signs Temp Pulse Resp BP Pulse Ox 36.6 C 83 18 159/87 H 95 09/02/17 08:00 09/02/17 09:30 09/02/17 08:00 09/02/17 09:30 09/02/17 08:00 Laboratory Results 09/01/17 05:10 09/01/17 05:10 09/01/17 09/02/17 09/03/17 05:59 05:59 05:59 Intake Total 150 Output Total 1050 Balance -900 PT 15.0 SEC (12.0-15.0) 08/23/17 18:04 INR 1.16 (0.83-1.16) 08/23/17 18:04 - Physical Exam Constitutional: appears nourished, chronically ill appearing, obese Eyes: PERRL, anicteric sclera, EOMI Ears, Nose, Mouth, Throat: moist mucous membranes, hearing normal, ears appear normal Cardiovascular: regular rate and rhythym, no murmur, rub, or gallop, No JVD Respiratory: no respiratory distress, no rales or rhonchi, reduced air movement Gastrointestinal: normoactive bowel sounds, No tenderness, No ascites Skin: warm, normal color, other (wound vac) Musculoskeletal: normal joint ROM, no joint effusions, generalized weakness Neurologic: AAOx3 Psychiatric: interacting appropriately, not anxious, poor insight, poor judgement, poor memory ICD10 Worksheet Patient Problems: Problems Problem Status Onset Encephalopathy acute Acute
[2017-09-02] MEDS: VANCOMYCIN 1.25 GM in NS 250 ML IV SCH ×2 (12:57→22:36)
--- NOTE | 2017-09-02 14:56 | WOCRNPDOC ---
[facility] Advanced Assessment Note - Skin Integrity Problem, Advanced Assess Left Heel Diabetic Ulcer Dressing Type: Open to Air Exudate Amount: None Marino Wound Tissue: Erythema, Macerated, Shiny, Taught Marino Wound Swelling: Mild Wound Bed Constitution: Granulation Tissue, Red/[place] - Non Granular Tissue, Subcutaneous Fat, Mixed Loose & Adhered Slough/Eschar (50%) Site Measurement - Head-to-Toe Length X Width X Depth (cm): 6.5x5.7x0.5 Skin Integrity Problem Comment: Cleaned with ns and gauze. Skin prep and mastisol marino wound. Draped marino wound. One piece of black foam to wound bed. All patient and sister questions answered. Patient tolerated vac change well. Prachi [employer] in room for care. Bridge dressing was used for vac change but the tubing had malfunctioned in the bridge so a regular trac pad was used. Recommend next vac change that suction be applied to lateral wound and the remainder of the two wounds bridged to that wound. A bridge dressing wound be most appropriate for managment of this wound, however a medium simplace dressing wound also be adequate. Left Lateral Foot Diabetic Ulcer Dressing Type: Open to Air Exudate Amount: None Integumentary Issue Intervention: Dressing Applied Marino Wound Tissue: Erythema, Shiny, Taught Marino Wound Swelling: Mild Wound Bed Color: Brown, Red, Yellow, Garcia Wound Bed Constitution: Granulation Tissue, Smooth Tissue, Red/[place] - Non Granular Tissue, Bone (1x1 cm around 6 oclock), Subcutaneous Fat Site Measurement - Head-to-Toe Length X Width X Depth (cm): 7.2x4x1 Skin Integrity Problem Comment: Tissue in inferior wound around area where bone is palpable is soft and non-viable. Cleaned with ns and gauze. Skin prep and mastisol marino wound. Draped marino wound and up to edge of heel wound. One piece of white foam to inferior area where bone is exposed and then a piece of black foam was applied to wound bed. Bridged with black foam to heel wound. Left Dorsal Foot Diabetic Ulcer Dressing Type: Open to Air Exudate Amount: None Integumentary Issue Intervention: Dressing Applied Marino Wound Tissue: Erythema, Shiny, Taught Marino Wound Swelling: Mild Wound Bed Color: Black, Brown, Red, Yellow Wound Bed Constitution: Granulation Tissue (10%), Mixed Loose & Adhered Slough/ Eschar (90%) Wound Edges: Not Attached Site Measurement - Head-to-Toe Length X Width X Depth (cm): 4.3x3.2x0.3 Skin Integrity Problem Comment: Cleaned with ns and gauze. Skin prep and mastisol marino wound. Draped marino wound and up to edge of lateral foot wound. One piece of black foam to wound bed. Bridged with black foam to lateral wound. Trac pad applied over this wound. Suction restarted at -125 mm Hg continuous without leaks.
--- NOTE | 2017-09-02 15:20 | ASMTCMCOM ---
JOHN Note CM Note Notes: CM sent updates to [facility]. JOHN spoke w/ Margaux at [facility] and she will work on ordering the wound vac for pt. JOHN spoke w/ Dr. Abbott regarding d/c POC. CM to follow. Plan: [facility] Date Signed: 09/02/2017 03:19 PM Electronically Signed By:MIKA Salas
[2017-09-02] MEDS: CAPSACIAN 0.075% CREAM TP SCH (20:23)
[2017-09-02] MEDS: ATORVASTATIN CALCIUM 40 MG TAB PO SCH (20:27)
[2017-09-03] MEDS ORDERED: hydrALAZINE 20 MG/ML VIAL IVP PRN (06:33)
[2017-09-03] MEDS: DOCUSATE SODIUM 100 MG CAP PO SCH ×2 (08:36→20:14)
[2017-09-03] MEDS: morphINE SR 15 MG TAB PO SCH ×2 (08:37→20:20)
[2017-09-03] MEDS: ASPIRIN 81 MG CHEWABLE TAB PO SCH (08:37)
[2017-09-03] MEDS: PREGABALIN 50 MG CAP PO SCH ×2 (08:37→20:20)
[2017-09-03] MEDS: morphINE SR 30 MG TAB PO SCH ×2 (08:37→20:14)
[2017-09-03] MEDS: metFORMIN HCL 500 MG TAB PO SCH ×2 (08:37→17:47)
[2017-09-03] MEDS: LISINOPRIL 10 MG TAB PO SCH (08:38)
[2017-09-03] MEDS: ATENOLOL 50 MG TAB PO SCH ×2 (08:39→20:29)
[2017-09-03] MEDS: CLOPIDOGREL BISULFATE 75 MG TAB PO SCH (08:40)
[2017-09-03] MEDS: ENOXAPARIN 40 MG/0.4 ML SYR SC SCH (08:40)
[2017-09-03] MEDS: INSULIN REGULAR HUMAN 100 UNIT/ML UNIT SC SCH ×4 (08:46→21:23)
[2017-09-03] MEDS: SODIUM HYPOCHLORITE (DAKINS 1/4 STR) 120 ML BTL TP SCH ×2 (08:58→20:37)
[2017-09-03] MEDS: INSULIN 70/30 HUMAN 100 UNIT/ML SYR SC SCH ×2 (10:00→21:21)
[2017-09-03] MEDS: POVIDONE-IODINE 30 ML STERILE SOLUTION TP SCH ×2 (10:15→20:31)
[2017-09-03] MEDS: VANCOMYCIN 1.25 GM in NS 250 ML IV SCH ×2 (11:55→23:09)
--- NOTE | 2017-09-03 14:05 | ASMTCMCOM ---
CM Note CM Note Notes: CM spoke w/ sister regarding d/c POC. Sister has pts wound vac which came w/ him from [facility]. Pt will stop by this evening to bring the wound vac. DC date is TBD at this time. CM to follow. Plan: [facility] Date Signed: 09/03/2017 02:05 PM Electronically Signed By:MIKA Salas
--- NOTE | 2017-09-03 14:18 | PCMIDPN ---
Assessment/Plan: # LLE cellulitis associated with mixed foot ulcers (diabetic, ischemic, postop) w palpable bone @wound assoc with 4th, 5th amp, complete resolution of signs of cellulitis; wound vac in place --plan 14 days of vancomycin IV then dc, 09/06/17 --check trough and Cr tomorrow # DM: HgAIC = 10, c/w very poor control; patient unwilling to change diet meds vancomycin 1.25 gm IV q12h, #11 Subjective: patient without c/o Objective: Vital Signs Temp Pulse Resp BP Pulse Ox 37.2 C 90 18 154/91 H 92 09/03/17 08:00 09/03/17 08:39 09/03/17 08:00 09/03/17 08:39 09/03/17 08:00 Laboratory Results 09/01/17 05:10 09/01/17 05:10 09/02/17 09/03/17 09/04/17 05:59 05:59 05:59 Intake Total 270 Output Total 400 Balance -130 ESR 89 MM/HR (0-20) H 08/23/17 18:04 C-Reactive Protein 80.8 mg/L (<10.0) H 08/28/17 05:10 - Physical Exam General Appearance: alert, no apparent distress Respiratory: No accessory muscle use Extremities: other (dependent ruber, no residual cellulitis, no palpable pulses , wound vac in place, foot warm) Skin: No rash Neuro/Psych: alert, normal mood/affect - Line/s RUE PICC Lines: No drainage, No erythema - Time Spent With Patient Time Spent with Patient: greater than 25 minutes Time Spent with Patient: Greater than 25 minutes spent on this patients care, greater than 50% of time spent counseling, educating, and coordinating care regarding the above mentioned plan. ICD10 Worksheet Patient Problems: Problems Problem Status Onset Encephalopathy acute Acute
--- NOTE | 2017-09-03 14:18 | HOSPPROG ---
Hospitalist Progress Note Assessment/Plan: 62y male with left foot wounds. #Hypotension: resolved No sxs. 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 Salvage of foot will be very difficult; Dr. Abbott has talked with them extensively and may need BKA #Hypoglycemia: resolved new does seems to be good Will readjust a scheduled dose #Uncontrolled DM: 70/30 decreased evening dose to 15units, 30qam -Metformin, Januvia per sister pt has been on 100qam and 30hs in the past follow labs good control #Chronic PVD: -ASA,statin,Plavix #CAD: ASA,statin, Plavix, BB #TBI: at baseline #HTN: Lisinopril, BB #DVT ppx: Lovenox #Disp: warrants inpatient admission for IV abx Subjective: Up at edge of bed. No complaints. Objective: Vital Signs Temp Pulse Resp BP Pulse Ox 37.2 C 90 18 154/91 H 92 09/03/17 08:00 09/03/17 08:39 09/03/17 08:00 09/03/17 08:39 09/03/17 08:00 Laboratory Results 09/01/17 05:10 09/01/17 05:10 09/02/17 09/03/17 09/04/17 05:59 05:59 05:59 Intake Total 270 Output Total 400 Balance -130 PT 15.0 SEC (12.0-15.0) 08/23/17 18:04 INR 1.16 (0.83-1.16) 08/23/17 18:04 - Physical Exam Constitutional: chronically ill appearing, obese Eyes: PERRL, anicteric sclera Ears, Nose, Mouth, Throat: moist mucous membranes, hearing normal Cardiovascular: No JVD, No edema Respiratory: no respiratory distress, reduced air movement Gastrointestinal: No tenderness, No ascites Skin: warm, other (wound vac) Musculoskeletal: no joint effusions, generalized weakness Neurologic: AAOx3 Psychiatric: not anxious, not encephalopathic, poor insight ICD10 Worksheet Patient Problems: Problems Problem Status Onset Encephalopathy acute Acute
--- NOTE | 2017-09-03 15:03 | SOAPPROG ---
SOAP Progress Note Assessment/Plan: Assessment: VAC intact. notes occasional itching. Afebrile. foot unchanged. will reassess in am need for further debridement. prob return to SNF tomorrow with PICC/ABX - ID note appreciated. wounds significantly improved. lateral foot granulation beefier - prior bone excision site with overlying soft tissue. plantar wound with new peripheral granulation - central tissue with small progress - still a bit pokey. dorsal foot wound clean with thin fibrinous debris. no further foot erythema. edema resolved. good progress. recc cont wound vac. vanco x2 wks per ID. does not need further angioplasty. i remain optimistic on the prospects of limb salvage. care plan reviewed with dr. goodrich. up in chair. no complaints. afebrile. foot without erythema. VAC without leak. reassess in am. hopeful return to SNF this week if wound care can be accomplished. apprec ID input re: abx. BG better controlled - apprec IM assist. no new issues. avss. VAC intact - min leak at present. foot stable. will reassess saturday. good night. afebrile. wounds all appear clean with less necrosis. no further erythema. edema improved. exposed metatarsal excised back to firm, cancellous bleeding bone. plantar and dorsal foot wounds sharply debrided back to bleeding tissue. wound vac being replaced by wound care nurse. cont inpt care plan at least until foot begins to better declare itself. i remain optimistic on limb salvage. no overnight issues. wound vac patched last r[place] - holding well today am. afebrile. vac intact. no foot erythema. 4th digit cracking clean. cont aggressive wound care / vac therapy. will reassess tomorrow. no complaints. afebrile. heal and dorsal foot wounds beauty parlor cleaner than yesterday - less necrotic material. lateral foot wound granulating well. wound care team at bedside - discussed wound vac strategy with them - to be applied qMWF. cautious optimism regarding leg salvage. no overnight concerns. afebrile. wounds all clean - heel/dorsal foot eschar debrided. will plan for wound vac placement tomorrow. cautious optimism - patient aware that BKA may ultimately be necessary if doesn't heal. care plan reviewed with dr. arroyo and extensively with family last evening. patient without complaints. afebrile. lateral wound with excellent new granulation since last week - exposed metatarsal new. plantar eschar with less progression. erythema and edema markedly improved from last week. dorsal foot eschar clean. WBC 13. BG 190-300. high risk diabetic foot infection. partially improved. long discussion with family regarding prognosis. they are aware that if attempted foot salvage is not tenable, a BKA will be necessary. a wound vac was attempted at [facility] - this was not able to maintained the week prior to this admission. given his notable improvement in swelling, this would be an appropriate next step. cont IV ABX/MRSA coverage. cont BG optimization. Plan: 08/23/17 14:38 08/26/17 20:19 08/26/17 20:24 08/27/17 15:33 08/28/17 17:10 08/29/17 08:13 08/30/17 16:46 08/31/17 14:27 09/01/17 10:15 09/02/17 10:39 09/03/17 15:01 09/03/17 15:02 Objective: Vital Signs Temp Pulse Resp BP Pulse Ox 37 C 71 18 138/74 H 95 09/03/17 14:56 09/03/17 14:56 09/03/17 14:56 09/03/17 14:56 09/03/17 14:56 Laboratory Results 09/01/17 05:10 09/01/17 05:10 09/02/17 09/03/17 09/04/17 05:59 05:59 05:59 Intake Total 270 Output Total 400 Balance -130 PT 15.0 SEC (12.0-15.0) 08/23/17 18:04 INR 1.16 (0.83-1.16) 08/23/17 18:04 ICD10 Worksheet Patient Problems: Problems Problem Status Onset Encephalopathy acute Acute
[2017-09-03] MEDS: ATORVASTATIN CALCIUM 40 MG TAB PO SCH (20:14)
[2017-09-03] MEDS: CAPSACIAN 0.075% CREAM TP SCH (20:37)
[2017-09-04] MEDS: ATENOLOL 50 MG TAB PO SCH ×2 (08:59→21:13)
[2017-09-04] MEDS: PREGABALIN 50 MG CAP PO SCH ×2 (08:59→21:15)
[2017-09-04] MEDS: DOCUSATE SODIUM 100 MG CAP PO SCH ×2 (08:59→21:15)
[2017-09-04] MEDS: ASPIRIN 81 MG CHEWABLE TAB PO SCH (08:59)
[2017-09-04] MEDS: CLOPIDOGREL BISULFATE 75 MG TAB PO SCH (09:01)
[2017-09-04] MEDS: ENOXAPARIN 40 MG/0.4 ML SYR SC SCH (09:01)
[2017-09-04] MEDS: INSULIN REGULAR HUMAN 100 UNIT/ML UNIT SC SCH ×4 (09:01→21:16)
[2017-09-04] MEDS: LISINOPRIL 10 MG TAB PO SCH (09:05)
[2017-09-04] MEDS: metFORMIN HCL 500 MG TAB PO SCH ×2 (09:06→17:09)
[2017-09-04] MEDS: morphINE SR 30 MG TAB PO SCH ×2 (09:06→21:15)
[2017-09-04] MEDS: morphINE SR 15 MG TAB PO SCH ×2 (09:06→21:13)
[2017-09-04] MEDS: SODIUM HYPOCHLORITE (DAKINS 1/4 STR) 120 ML BTL TP SCH ×2 (09:07→21:25)
[2017-09-04] MEDS: INSULIN 70/30 HUMAN 100 UNIT/ML SYR SC SCH ×2 (09:10→21:18)
[2017-09-04] MEDS: POVIDONE-IODINE 30 ML STERILE SOLUTION TP SCH ×2 (09:11→21:19)
--- NOTE | 2017-09-04 10:06 | PCMIDPN ---
Assessment/Plan: # LLE cellulitis associated with mixed foot ulcers (diabetic, ischemic, postop) w palpable bone @wound assoc with 4th, 5th amp, complete resolution of signs of cellulitis; still w significant fat necrosis in base of wounds and wound associated w 4h, 5th amp noted to be tracking 4-5cm toward heal today. --plan 14 days of vancomycin IV then dc, 09/06/17 --vanco 12.3 and Cr 0.7 --Dr Abbott to debride in the OR tomorrow # DM: HgAIC = 10, c/w very poor control; patient unwilling to change diet meds vancomycin 1.25 gm IV q12h, #12 Subjective: patient without specific c/o Objective: Vital Signs Temp Pulse Resp BP Pulse Ox 36.5 C 72 16 148/86 H 93 09/04/17 07:34 09/04/17 08:59 09/04/17 07:34 09/04/17 09:05 09/04/17 07:34 Laboratory Results 09/01/17 05:10 09/01/17 05:10 09/03/17 09/04/17 09/05/17 05:59 05:59 05:59 Intake Total 270 600 Output Total 400 1350 Balance -130 -750 ESR 89 MM/HR (0-20) H 08/23/17 18:04 C-Reactive Protein 80.8 mg/L (<10.0) H 08/28/17 05:10 - Physical Exam General Appearance: alert, no apparent distress Respiratory: No accessory muscle use Neck: supple (Care coordinated with Dr. Abbott) Extremities: other (3 wound LLE large heal wound with necrotic fat in base; Lateral foot at site of 4, 5th met amp, 2 palable bone, 80% necrotic fat, tracking posterior toward heal almost 5 cm), No erythema (LLE erythema resolved) Peripheral Pulses: 0: dorsalis-pedis (R), dorsalis-pedis (L) Skin: No rash Neuro/Psych: alert, normal mood/affect, oriented x 3 - Line/s RUE PICC Lines: No drainage, No erythema - Time Spent With Patient Time Spent with Patient: greater than 35 minutes (care coordinated w wound healing service, surgery) Time Spent with Patient: Greater than 35 minutes spent on this patients care, greater than 50% of time spent counseling, educating, and coordinating care regarding the above mentioned plan. ICD10 Worksheet Patient Problems: Problems Problem Status Onset Encephalopathy acute Acute
[2017-09-04] MEDS: VANCOMYCIN 1.25 GM in NS 250 ML IV SCH (12:15)
--- NOTE | 2017-09-04 12:21 | ASMTCMCOM ---
CM Note CM Note Notes: Spoke w/hospitalist and RN, pt will go back to OR on , dc date unclear. CM notified Angie at [facility]. DC Plan: [facility] Date Signed: 09/04/2017 12:17 PM Electronically Signed By:Keysha Zarate RN
--- NOTE | 2017-09-04 13:10 | WOCRNPDOC ---
[facility] Advanced Assessment Note - Skin Integrity Problem, Advanced Assess Left Heel Diabetic Ulcer Dressing Type: Black Vac Foam, Wound Vac Exudate Amount: None Integumentary Issue Intervention: Dressing Removed Bernice Wound Tissue: Macerated Wound Edges: Attached Site Odor: Strong, Pungent Skin Integrity Problem Comment: Vac removed from all 3 wounds. Odor present throughout. Bernice wound on heel very macerated. Left Lateral Foot Diabetic Ulcer Dressing Type: Black Vac Foam (x1), White Vac Foam (x1), Wound Vac Dressing Description: Clean/Dry, Intact Exudate Amount: None Wound Bed Color: Black, Brown, Red, Yellow, Garcia, White Wound Bed Constitution: Granulation Tissue (30%), Tunneling (5 cm around 7 oclock), Subcutaneous Fat Site Odor: Strong, Foul, Pungent Skin Integrity Problem Comment: Area that was soft and non viable yesterday was explored and a tunnel was found by Dr Mendes. Patient to OR today. Wound care follow up Saturday.
--- NOTE | 2017-09-04 14:34 | HOSPPROG ---
Hospitalist Progress Note Assessment/Plan: 62y male with left foot wounds. #Hypotension: resolved No sxs. 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 Salvage of foot will be very difficult; Dr. Abbott has talked with them extensively and may need BKA -plan for surgery tomorrow #Hypoglycemia: resolved new does seems to be good Will readjust a scheduled dose #Uncontrolled DM: 70/30 decreased evening dose to 15units, 30qam -Metformin, Januvia per sister pt has been on 100qam and 30hs in the past follow labs good control #Chronic PVD: -ASA,statin,Plavix #CAD: ASA,statin, Plavix, BB #TBI: at baseline #HTN: Lisinopril, BB #DVT ppx: Lovenox #Disp: warrants inpatient admission for IV abx Subjective: Feeling ok. Pain controlled. Objective: Vital Signs Temp Pulse Resp BP Pulse Ox 36.5 C 72 16 148/86 H 93 09/04/17 07:34 09/04/17 08:59 09/04/17 07:34 09/04/17 09:05 09/04/17 07:34 Laboratory Results 09/01/17 05:10 09/04/17 10:10 09/03/17 09/04/17 09/05/17 05:59 05:59 05:59 Intake Total 270 600 Output Total 400 1350 Balance -130 -750 PT 15.0 SEC (12.0-15.0) 08/23/17 18:04 INR 1.16 (0.83-1.16) 08/23/17 18:04 - Physical Exam Constitutional: chronically ill appearing, obese Eyes: PERRL, anicteric sclera Ears, Nose, Mouth, Throat: moist mucous membranes, hearing normal Cardiovascular: No JVD, No edema Respiratory: no respiratory distress, reduced air movement Gastrointestinal: No tenderness, No ascites Skin: warm, normal color, other (wound vac) Musculoskeletal: pain with ROM, generalized weakness Neurologic: AAOx3 Psychiatric: not anxious, poor insight, poor judgement ICD10 Worksheet Patient Problems: Problems Problem Status Onset Encephalopathy acute Acute
--- NOTE | 2017-09-04 17:12 | SOAPPROG ---
SOAP Progress Note Assessment/Plan: Assessment: wounds continue to slowly improve. left metatarsal amputation site exposed with excellent granulation throughout. dorsal foot granulation improving with fibrinous exudate. plantar wound with scattered central granulation buds maturing peripheral granulation. will plan for further metatarsal debridement in OR tomorrow pm. will continue with wound vac. care plan reviewed with ID and nursing staff/sister. no plans for BKA at this time unless wounds deteriorate/clinical decline occurs. VAC intact. notes occasional itching. Afebrile. foot unchanged. will reassess in am need for further debridement. prob return to SNF tomorrow with PICC/ABX - ID note appreciated. wounds significantly improved. lateral foot granulation beefier - prior bone excision site with overlying soft tissue. plantar wound with new peripheral granulation - central tissue with small progress - still a bit pokey. dorsal foot wound clean with thin fibrinous debris. no further foot erythema. edema resolved. good progress. recc cont wound vac. vanco x2 wks per ID. does not need further angioplasty. i remain optimistic on the prospects of limb salvage. care plan reviewed with dr. goodrich. up in chair. no complaints. afebrile. foot without erythema. VAC without leak. reassess in am. hopeful return to SNF this week if wound care can be accomplished. apprec ID input re: abx. BG better controlled - apprec IM assist. no new issues. avss. VAC intact - min leak at present. foot stable. will reassess saturday. good night. afebrile. wounds all appear clean with less necrosis. no further erythema. edema improved. exposed metatarsal excised back to firm, cancellous bleeding bone. plantar and dorsal foot wounds sharply debrided back to bleeding tissue. wound vac being replaced by wound care nurse. cont inpt care plan at least until foot begins to better declare itself. i remain optimistic on limb salvage. no overnight issues. wound vac patched last ritchie - holding well today am. afebrile. vac intact. no foot erythema. 4th digit cracking clean. cont aggressive wound care / vac therapy. will reassess tomorrow. no complaints. afebrile. heal and dorsal foot wounds ladle cleaner than yesterday - less necrotic material. lateral foot wound granulating well. wound care team at bedside - discussed wound vac strategy with them - to be applied qMWF. cautious optimism regarding leg salvage. no overnight concerns. afebrile. wounds all clean - heel/dorsal foot eschar debrided. will plan for wound vac placement tomorrow. cautious optimism - patient aware that BKA may ultimately be necessary if doesn't heal. care plan reviewed with dr. arroyo and extensively with family last evening. patient without complaints. afebrile. lateral wound with excellent new granulation since last week - exposed metatarsal new. plantar eschar with less progression. erythema and edema markedly improved from last week. dorsal foot eschar clean. WBC 13. BG 190-300. high risk diabetic foot infection. partially improved. long discussion with family regarding prognosis. they are aware that if attempted foot salvage is not tenable, a BKA will be necessary. a wound vac was attempted at [facility] - this was not able to maintained the week prior to this admission. given his notable improvement in swelling, this would be an appropriate next step. cont IV ABX/MRSA coverage. cont BG optimization. Plan: 08/23/17 14:38 08/26/17 20:19 08/26/17 20:24 08/27/17 15:33 08/28/17 17:10 08/29/17 08:13 08/30/17 16:46 08/31/17 14:27 09/01/17 10:15 09/02/17 10:39 09/03/17 15:01 09/03/17 15:02 09/04/17 17:09 Objective: Vital Signs Temp Pulse Resp BP Pulse Ox 36.9 C 81 18 149/79 H 91 L 09/04/17 15:58 09/04/17 15:58 09/04/17 15:58 09/04/17 15:58 09/04/17 15:58 Laboratory Results 09/01/17 05:10 09/04/17 10:10 09/03/17 09/04/17 09/05/17 05:59 05:59 05:59 Intake Total 270 600 Output Total 400 1350 Balance -130 -750 PT 15.0 SEC (12.0-15.0) 08/23/17 18:04 INR 1.16 (0.83-1.16) 08/23/17 18:04 ICD10 Worksheet Patient Problems: Problems Problem Status Onset Encephalopathy acute Acute
[2017-09-04] MEDS: ATORVASTATIN CALCIUM 40 MG TAB PO SCH (21:13)
[2017-09-04] MEDS: CAPSACIAN 0.075% CREAM TP SCH (21:25)
[2017-09-05] MEDS: VANCOMYCIN 1.25 GM in NS 250 ML IV SCH ×3 (00:59→23:05)
[2017-09-05] MEDS: INSULIN REGULAR HUMAN 100 UNIT/ML UNIT SC SCH ×4 (07:55→23:03)
[2017-09-05] MEDS: ASPIRIN 81 MG CHEWABLE TAB PO SCH (08:06)
[2017-09-05] MEDS: ENOXAPARIN 40 MG/0.4 ML SYR SC SCH (08:06)
[2017-09-05] MEDS: metFORMIN HCL 500 MG TAB PO SCH ×2 (08:06→20:11)
[2017-09-05] MEDS: morphINE SR 15 MG TAB PO SCH ×2 (08:07→21:09)
[2017-09-05] MEDS: PREGABALIN 50 MG CAP PO SCH ×2 (08:07→21:07)
[2017-09-05] MEDS: DOCUSATE SODIUM 100 MG CAP PO SCH ×2 (08:07→21:08)
[2017-09-05] MEDS: morphINE SR 30 MG TAB PO SCH ×2 (08:07→21:08)
[2017-09-05] MEDS: CLOPIDOGREL BISULFATE 75 MG TAB PO SCH (08:07)
[2017-09-05] MEDS: LISINOPRIL 10 MG TAB PO SCH (08:07)
[2017-09-05] MEDS: ATENOLOL 50 MG TAB PO SCH ×2 (08:07→21:08)
[2017-09-05] MEDS: POVIDONE-IODINE 30 ML STERILE SOLUTION TP SCH ×2 (08:10→21:11)
[2017-09-05] MEDS: SODIUM HYPOCHLORITE (DAKINS 1/4 STR) 120 ML BTL TP SCH ×2 (08:43→22:21)
[2017-09-05] MEDS: INSULIN 70/30 HUMAN 100 UNIT/ML SYR SC SCH ×2 (09:08→23:03)
--- NOTE | 2017-09-05 10:51 | HOSPPROG ---
Hospitalist Progress Note Assessment/Plan: 62y male with left foot wounds. #Hypotension: resolved No sxs. 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 Salvage of foot will be very difficult; Dr. Abbott has talked with them extensively and may need BKA -plan for surgery today #Hypoglycemia: resolved new does seems to be good Will readjust a scheduled dose #Uncontrolled DM: 70/30 decreased evening dose to 15units, 30qam will increase am dose to 35 -Metformin, Januvia per sister pt has been on 100qam and 30hs in the past follow labs good control #Chronic PVD: -ASA,statin,Plavix #CAD: ASA,statin, Plavix, BB #TBI: at baseline #HTN: Lisinopril, BB increase lisinopril to 20mg daily starting 09/06 #DVT ppx: Lovenox #Disp: warrants inpatient admission for IV abx Subjective: No complaints. Not in pain. Objective: Vital Signs Temp Pulse Resp BP Pulse Ox 37.2 C 82 16 162/79 H 94 09/05/17 07:35 09/05/17 08:07 09/05/17 07:35 09/05/17 08:07 09/05/17 07:35 Laboratory Results 09/01/17 05:10 09/04/17 10:10 09/04/17 09/05/17 09/06/17 05:59 05:59 05:59 Intake Total 600 480 Output Total 1350 600 400 Balance -750 -120 -400 PT 15.0 SEC (12.0-15.0) 08/23/17 18:04 INR 1.16 (0.83-1.16) 08/23/17 18:04 - Physical Exam Constitutional: chronically ill appearing, obese Eyes: PERRL, anicteric sclera Ears, Nose, Mouth, Throat: moist mucous membranes, hearing normal Cardiovascular: regular rate and rhythym, No JVD Respiratory: no respiratory distress, reduced air movement Gastrointestinal: No tenderness, No ascites Skin: warm, No mottled Musculoskeletal: joint tenderness, generalized weakness Neurologic: AAOx3 Psychiatric: not anxious, not encephalopathic, poor insight, poor judgement ICD10 Worksheet Patient Problems: Problems Problem Status Onset Encephalopathy acute Acute
--- NOTE | 2017-09-05 11:50 | PCMIDPN ---
Assessment/Plan: Assessment: Left lower extremity arterial insufficiency status post angioplasty May 2017. He does not appear to have active infection the surrounding his ulcerations. His wounds appear to have slightly more improved appearance of the tissue and some increased granulation although I think overall this will be a very challenging thing for this patient to heal. Plan: 1. Continue vancomycin for 1 more complete day. 2. Follow clinical course. 09/05/17 19:05 Subjective: Patient reports no significant change in condition. Objective: Vancomycin # 13 Vital Signs Temp Pulse Resp BP Pulse Ox 37.2 C 82 16 162/79 H 94 09/05/17 07:35 09/05/17 08:07 09/05/17 07:35 09/05/17 08:07 09/05/17 07:35 Laboratory Results 09/01/17 05:10 09/04/17 10:10 09/04/17 09/05/17 09/06/17 05:59 05:59 05:59 Intake Total 600 480 Output Total 1350 600 400 Balance -750 -120 -400 ESR 89 MM/HR (0-20) H 08/23/17 18:04 C-Reactive Protein 75.3 mg/L (<10.0) H 09/04/17 10:10 - Physical Exam General Appearance: WD/WN, alert, no apparent distress, non-toxic Respiratory: lungs clear, normal breath sounds, No respiratory distress Cardiac/Chest: regular rate, rhythm, No tachycardia Extremities: non-tender, other (Multiple ongoing ulcers left lower extremity), No normal inspection, No erythema Neuro/Psych: alert, normal mood/affect, oriented x 3 ICD10 Worksheet Patient Problems: Problems Problem Status Onset Encephalopathy acute Acute
[2017-09-05] MEDS ORDERED: BUPIVACAINE 0.5% 30 ML SDV ONE (16:30)
[2017-09-05] MEDS ORDERED: BACITRACIN ZINC 14.2 GM OINTTUBE TP ONE (16:31)
[2017-09-05] MEDS ORDERED: MIDAZOLAM 2 MG/2 ML VIAL IVP ONE (16:50)
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
[2017-09-05] MEDS ORDERED: PROPOFOL/EMULSION 500 MG/50 ML BOTTLE IV ONE (17:05)
[2017-09-05] MEDS ORDERED: fentaNYL 100 MCG/2 ML INJ ONE ×2 (17:05→18:56)
[2017-09-05] MEDS ORDERED: NALOXONE HCL 0.4 MG/ML INJ IVP PRN (18:24)
[2017-09-05] MEDS ORDERED: ONDANSETRON 4 MG/2 ML VIAL IVP PRN (18:24)
--- NOTE | 2017-09-05 18:47 | POSTANESTH ---
Post Anesthetic Evaluation Cardiovascular Status: Normal, Stable Respiratory Status: Normal, Stable Level of Consciousness/Mental Status: Can Participate in Eval Pain Control: Adequate, Prn Tx Ordered Nausea/Vomiting Control: Adequate, Prn Tx Ordered Complications Possibly Related to Anesthesia: None Noted
[2017-09-05] MEDS: fentaNYL 100 MCG/2 ML INJ IVP PRN ×2 (18:58→19:07)
--- NOTE | 2017-09-05 19:26 | POSTOPPROG ---
Post Op Note Date of Operation: 09/05/17 Surgeon: Elliott Abbott Anesthesiologist: Raymon Rodriguez Anesthesia: IV Sedation Pre-op Diagnosis: Diabetic left foot infection Post-op Diagnosis: Same Procedure: Left foot debridement with partial left 5th metatarsal resection Inf/Abcess present in the surg proc area at time of surgery?: No EBL: Minimal Specimen(s): none
--- NOTE | 2017-09-05 20:30 | GOP ---
[f rep st] OPERATIVE REPORT DATE OF OPERATION: 08/23/2017 SURGEON: Elliott Abbott MD ANESTHESIA: MAC. ANESTHESIOLOGIST: Lionel Rodriguez MD. PREOPERATIVE DIAGNOSIS: Diabetic left foot infection. POSTOPERATIVE DIAGNOSIS: Diabetic left foot infection. PROCEDURE PERFORMED: Left foot debridement (left metatarsal resection, dorsal and plantar wound debridement). FINDINGS: See below. INDICATIONS: 62-year-old male, admitted with a diabetic left foot infection. He underwent a prior left 5th metatarsal resection as well as heel debridement for areas of necrosis. He has been maintained with a wound VAC. He has been making very slow progress. He has exposed proximal metatarsal, protruding through his lateral foot granulating wound. He is undergoing foot debridement at this time. Risks and benefits were explained of bleeding, infection, inability to provide for limb salvage, and need for higher level amputation. All questions were answered. He desires to proceed. DESCRIPTION OF PROCEDURE: After monitored anesthesia was started, an ankle block was applied with 0.5% Marcaine without epinephrine. Wound exploration disclosed a 4 cm dorsal foot wound with very early surrounding granulation tissue. Fibrinous debris was abraded back to a diffusely bleeding dorsal foot soft tissues. The plantar wound measures approximately 15 cm in diameter. There was diffuse mature peripheral granulation tissue throughout. The central portion down towards the calcaneus shows small areas of scattered granulation buds, much less so than the remaining peripheral wound. Nonviable soft tissues were all sharply debrided to areas of diffuse bleeding noted throughout the entire wound bed. No exposed bony surfaces were present at this site. The lateral foot maturely granulating wound disclosed protruding aspect of the proximal cut surface of the metatarsal. Using a [place] elevator, the periosteum was dissected back toward the proximal portion of the metatarsal. Using a bone cutter, this was divided and rongeured back multiple additional cm. The bone was retracted approximately 3 cm beyond the wound opening. A small portion of the left 4th distal phalangeal DIP joint capsule was minimally exposed through the soft tissue dissection. These soft tissues all showed excellent bleeding with manipulation. Satisfactory hemostasis was assured. The wound was pulse lavaged with 3 L of irrigation. Sterile dressings were applied and the patient taken to recovery uneventfully. /[id number]/MODL MTDD
[2017-09-05] MEDS: SPIRONOLACTONE 25 MG TAB PO SCH (21:08)
[2017-09-05] MEDS: ATORVASTATIN CALCIUM 40 MG TAB PO SCH (21:08)
[2017-09-05] MEDS: CAPSACIAN 0.075% CREAM TP SCH (22:20)
[2017-09-06 08:26] VITALS: BP 165/73; PULSE 85; RESP 18; TEMP 99.3; O2SAT 93
--- NOTE | 2017-09-06 08:30 | HOSPPROG ---
Hospitalist Progress Note Assessment/Plan: 62y male with left foot wounds. #Hypotension: resolved No sxs. 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 -Dr. Abbott has talked with them extensively and may need BKA -has arterial insufficiency making this difficult #Hypoglycemia: resolved new does seems to be good Will readjust a scheduled dose #Uncontrolled DM: 70/30 decreased evening dose to 15units, 30qam will increase am dose to 35 -Metformin, Januvia per sister pt has been on 100qam and 30hs in the past follow labs good control #Chronic PVD: -ASA,statin,Plavix #CAD: ASA,statin, Plavix, BB #TBI: at baseline #HTN: Lisinopril, BB increase lisinopril to 20mg daily starting 09/06 #DVT ppx: Lovenox #plan: dc to [place] with wound vac and close f/u with Dr Abbott Subjective: [facility]ller is anxious to be discharged. Objective: Vital Signs Temp Pulse Resp BP Pulse Ox 37.4 C 85 18 165/73 H 93 09/06/17 08:00 09/06/17 08:00 09/06/17 08:00 09/06/17 08:00 09/06/17 08:00 Laboratory Results 09/01/17 05:10 09/04/17 10:10 09/05/17 09/06/17 09/07/17 05:59 05:59 05:59 Intake Total 480 1597 Output Total 600 650 Balance -120 947 PT 15.0 SEC (12.0-15.0) 08/23/17 18:04 INR 1.16 (0.83-1.16) 08/23/17 18:04 - Physical Exam Constitutional: not in pain, chronically ill appearing Eyes: PERRL Ears, Nose, Mouth, Throat: hearing normal Cardiovascular: regular rate and rhythym Respiratory: no respiratory distress Gastrointestinal: normoactive bowel sounds Skin: warm, No normal color (pale) Musculoskeletal: full muscle strength Neurologic: AAOx3 Psychiatric: interacting appropriately ICD10 Worksheet Patient Problems: Problems Problem Status Onset Encephalopathy acute Acute
[2017-09-06] MEDS: ATENOLOL 50 MG TAB PO SCH (08:33)
[2017-09-06] MEDS: INSULIN REGULAR HUMAN 100 UNIT/ML UNIT SC SCH ×2 (08:33→12:07)
[2017-09-06] MEDS: ASPIRIN 81 MG CHEWABLE TAB PO SCH (08:34)
[2017-09-06] MEDS: CLOPIDOGREL BISULFATE 75 MG TAB PO SCH (08:34)
[2017-09-06] MEDS: SPIRONOLACTONE 25 MG TAB PO SCH (08:34)
[2017-09-06] MEDS: metFORMIN HCL 500 MG TAB PO SCH (08:34)
[2017-09-06] MEDS: morphINE SR 15 MG TAB PO SCH (08:34)
[2017-09-06] MEDS: PREGABALIN 50 MG CAP PO SCH (08:34)
[2017-09-06] MEDS: DOCUSATE SODIUM 100 MG CAP PO SCH (08:34)
[2017-09-06] MEDS: morphINE SR 30 MG TAB PO SCH (08:35)
[2017-09-06] MEDS: ENOXAPARIN 40 MG/0.4 ML SYR SC SCH (08:35)
[2017-09-06] MEDS: SODIUM HYPOCHLORITE (DAKINS 1/4 STR) 120 ML BTL TP SCH (08:36)
[2017-09-06] MEDS: POVIDONE-IODINE 30 ML STERILE SOLUTION TP SCH (08:36)
[2017-09-06] MEDS ORDERED: INSULIN 70/30 HUMAN 100 UNIT/ML SYR SC SCH (09:00)
[2017-09-06] MEDS ORDERED: LISINOPRIL 20 MG TAB PO SCH (09:00)
--- NOTE | 2017-09-06 09:26 | PCMIDPN ---
Assessment/Plan: 1. Left lower extremity cellulitis/diabetic foot secondary to MRSA in patient with severe PAD/poorly controlled diabetes: Patient has completed 14 days of vancomycin. Explained to the patient's sister that I am very concerned that he will need an amputation moving forward, but will wait and see. I do not feel that additional antibiotics would be helpful at this point in time. She expressed understanding. Patient is eager to go home. PICC line can be removed prior to discharge. 09/06/17 09:26 Subjective: Patient wants to go home. No questions for me. Denies diarrhea. Objective: Status post vancomycin times 14 days T-max 37 degrees for Vital Signs Temp Pulse Resp BP Pulse Ox 37.4 C 85 18 165/73 H 93 09/06/17 08:00 09/06/17 08:33 09/06/17 08:00 09/06/17 08:34 09/06/17 08:00 Laboratory Results 09/01/17 05:10 09/04/17 10:10 09/05/17 09/06/17 09/07/17 05:59 05:59 05:59 Intake Total 480 1597 Output Total 600 650 Balance -120 947 ESR 89 MM/HR (0-20) H 08/23/17 18:04 C-Reactive Protein 75.3 mg/L (<10.0) H 09/04/17 10:10 - Physical Exam General Appearance: no apparent distress, obese EENT: No thrush Extremities: other (Left lower extremity wrapped, I did not take down. ) Skin: No rash ICD10 Worksheet Patient Problems: Problems Problem Status Onset Encephalopathy acute Acute
--- NOTE | 2017-09-06 10:43 | PDIAF ---
- Diagnosis Diagnosis: left lower ext cellulitis, diabetes Code Status: Full Code - Medication Management Discharge Medications: Medications to Continue on Transfer Aspirin [Aspirin 81mg (*)] 81 mg PO DAILY 08/23/17 [Last Taken Unknown] Atorvastatin Calcium [Lipitor 40 mg (*)] 40 mg PO HS 08/23/17 [Last Taken Unknown] Capsaicin [Arthritis Pain Relieving] 1 brayan TP HS 08/23/17 [Last Taken Unknown] Clopidogrel Bisulfate [Plavix (*)] 75 mg PO DAILY 08/23/17 [Last Taken Unknown] Docusate Sodium [Colace 100 MG (*)] 100 mg PO BID 08/23/17 [Last Taken Unknown] Herbals/Supplements -Info Only 1 ea PO DAILY 08/23/17 [Last Taken Unknown] Povidone-Iodine [Betadine] 1 each TP BID 08/23/17 [Last Taken Unknown] Pregabalin [Lyrica 50mg (*)] 50 mg PO BID 08/23/17 [Last Taken Unknown] metFORMIN HCL [Glucophage 500 mg (*)] 1,000 mg PO BIDMEAL 08/23/17 [Last Taken Unknown] sitaGLIPtin PHOSPHATE [Januvia 100 MG (*)] 100 mg PO DAILY 08/23/17 [Last Taken Unknown] Melatonin [Melatonin 3 MG (*)] 3 mg PO HS PRN 08/24/17 [Last Taken Unknown] morphINE SR [MS Contin/Oramorph SR 30 mg (*)] 30 mg PO BID 08/24/17 [Last Taken Unknown] morphINE SR [Ms Contin/Oramorph 15 mg (*)] 15 mg PO BID 08/24/17 [Last Taken Unknown] Spironolactone [Aldactone 25 MG (*)] 25 mg PO BID 08/25/17 [Last Taken Unknown] Atenolol [Tenormin 50 mg (*)] 50 mg PO BID tab 09/06/17 [Last Taken Unknown] Insulin 70/30 Human [HumuLIN 70/30 SYRINGE] 15 unit SC HS unit 09/06/17 [Last Taken Unknown] Insulin 70/30 Human [HumuLIN 70/30 SYRINGE] 35 unit SC DAILY unit 09/06/17 [ Last Taken Unknown] Insulin Regular Human [HumuLIN R] 0 unit SC ACHS unit 09/06/17 [Last Taken Unknown] Lisinopril [Zestril 20 mg (*)] 20 mg PO DAILY tab 09/06/17 [Last Taken Unknown] Povidone-Iodine 1 ml TP BID solution 09/06/17 [Last Taken Unknown] Sodium Hypochlorite [Dakins 1/4 Strength] 60 ml TP BID btl 09/06/17 [Last Taken Unknown] Discharge Medications: Refer to the Discharge Home Medication list for PRN reason. - Orders Services needed: Registered Nurse, Physical Therapy, Occupational Therapy Isolation Type: Contact Isolation Diet Recommendation: ADA 2000 consistent carb Diet Texture: Regular Texture Diet Wound Care Instructions: Dressing change Saturday and ; current plan is for patient to follow up w/ Dr. Abbott in his office on 09/12. Monitor VAC dressings and equipment Q2H w/turns and PRN patient activity or VAC alarm: For dressin. flush wounds w/ NS and gauze. 2. apply skin prep to periwound skin, and picture frame wounds w/ drape to protect skin. 3. place black foam in wound beds, and bridge wounds together up to L lower leg. If there is any exposed bone at time of can, please cover w/ white foam or contact layer to protect. 4. set vac to -125mmHg low, continuous suction. Wound vac management : 1.VAC machine should be operating at -125mmHg negative pressure setting, without any alarms. 2.Foam dressing should be compressed. 3.Transparent drape should be completely intact. 4.Tubing should not be pressing into patient at any anatomical location. 5.Tubing should be free of kinks and clamps should be open. 6.Replace canister if nearly full. Write date and time on new canister. ( Dispose of used canister in [employer].). 7.VAC power supply should be plugged into the wall and into the machines cnc machinist 2nd shift port at all times that patient is in bed or chair. 8.If negative pressure seal is lost and cannot be re-established within 2 hours cumulative lost suction, remove dressing, and apply wet-to-dry gauze and ABD dressing. CHRISTINA Beverly Additional: QAC and QHS glucoses. Sliding scale per [facility] / this will be faxed to [facility]. - Labs/Radiology BMP Date: 09/02/16 CBC w/diff Date: 09/11/16 - Follow Up Care Current Providers and Referrals: MARTA ROMANO [Other] Elliott Abbott MD [Medical Doctor] -
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
--- NOTE | 2017-09-06 12:26 | GDS ---
[f rep st] DISCHARGE SUMMARY DISCHARGE DIAGNOSES: 1. Hypotension. 2. Left lower extremity cellulitis with methicillin-resistant Staphylococcus aureus. 3. Foot ulcer, diabetic and ischemic. 4. Hypoglycemia. 5. Uncontrolled diabetes. 6. Chronic peripheral vascular disease. 7. Coronary artery disease. 8. Traumatic brain injury. 9. Hypertension. CONSULTATION: 1. Dr. Elliott Abbott. 2. Dr. Marion Mendes. Briefly, the patient is a 62-year-old gentleman with uncontrolled diabetes, who was referred to [facility] and directly admitted by Dr. Abbott for treatment of a diabetic left foot ulcer. He underwent a plantar eschar ulcer excision of the 5th toe on August 02, 2017, by Dr. Abbott. He had been declining at the long-term care facility with uncontrolled blood sugars. He was seen and evaluated by the Infectious Disease team. He was treated with vancomycin and slowly slightly improved during his stay. Most recently, he had the left foot debridement of the left metatarsal resection, dorsal and plantar wound debridement. In addition, he had a CTA performed. The patient has ongoing significant peripheral vascular disease, as well as arterial disease. There is concern that he may require a [id number] amputation, but for now the plan is for him to get aggressive wound care at the rehabilitation facility, and see if he can improve. HOSPITAL COURSE PER PROBLEM: 1. Hypotension, resolved. His atenolol dose has been reduced. 2. Left lower extremity MRSA cellulitis. He has finished treatment with IV vancomycin. 3. Foot ulcer. This is diabetic and ischemic. He had an amputation of his left 5th toe on the . He also has arterial insufficiency, making this very difficult to heal. Will continue wound VAC at discharge. 4. Hypoglycemia, resolved. 5. Uncontrolled diabetes. He is on metformin as well as Januvia. Have requested that the residential facility continue his 70/30 insulin, as well as a sliding scale. 6. Chronic peripheral vascular disease. He is on aspirin, statin therapy, and Plavix. 7. Coronary artery disease, on aspirin, statin, Plavix, and beta beverly. 8. Traumatic brain injury. He is at baseline. 9. Hypertension. Blood pressure is overall stable. DISCHARGE CONDITION: Stable. Blood pressure is 165/73, heart rate is 85, respiratory rate is 18, O2 saturation on room air 93%, temperature 37.4 Celsius. MEDICATIONS AT DISCHARGE: Please see the EMR. DISCHARGE INSTRUCTIONS: 1. The patient will be further followed up with Dr. Abbott on to keep an eye on his foot. 2. Detailed instructions have been written out for his dressing changes. 3. If he develops fever, chills, chest pain, or shortness of breath, return to the ER. 4. Greater than 30 minutes discharging and coordinating the patient. /[id number]/MODL MTDD
--- NOTE | 2017-09-06 14:42 | WOCRNPDOC ---
YUNG Advanced Assessment Note - Skin Integrity Problem, Advanced Assess Left Heel Diabetic Ulcer Dressing Type: Christopher Bandage, Gauze Dressing Description: Shadowed Exudate Amount: Moderate Exudate Color: Red, Brown Exudate Characteristic(s): Dried Integumentary Issue Intervention: Dressing Changed Bernice Wound Tissue: Erythema, Macerated, Raw, Swollen, Denuded Bernice Wound Swelling: Mild Wound Bed Color: Red, Yellow Wound Bed Constitution: Granulation Tissue (20%), Adhered Slough (80%) Site Odor: None Site Measurement - Head-to-Toe Length X Width X Depth (cm): 6.2cmx6.1cmx0.9cm Skin Integrity Problem Comment: Wound debrided in OR by Dr. Abbott on 09/05, remains predominantly slough-filled. Bernice-wound maceration is improved, but is still raw and macerated along the distal margin. This is the only wound in which patient reports pain and tenderness during assessment. Bernice-wound skin prepped w/ Mastisol and draped, and one continuous piece of black Simplace foam placed over wound and bridged to L lateral lower leg. Vac settings resume at - 125mmHg, though it was very difficult to obtain a good seal this time. This RN spent over an hour trying to troubleshoot the dressing, and was finally able to stop the leak alarm. Left Lateral Foot Diabetic Ulcer Dressing Type: Christopher Bandage, Gauze Dressing Description: Shadowed Exudate Amount: Moderate Exudate Color: Red, Brown Exudate Characteristic(s): Dried Integumentary Issue Intervention: Dressing Applied Bernice Wound Tissue: Erythema, Raw, Swollen, Denuded Bernice Wound Swelling: Moderate Wound Bed Color: Red, Yellow Wound Bed Constitution: Granulation Tissue (20%), Red/[place] - Non Granular Tissue (30%), Bone (pinpoint, in distal aspect of wound bed just below toe.), Adhered Slough (50) Site Odor: None Site Measurement - Head-to-Toe Length X Width X Depth (cm): 6.4cmx4.1cmx0.4cm Skin Integrity Problem Comment: Wound along L lateral foot w/ pinpoint area of exposed bone. Concerning area in proximal aspect of wound bed where there is soft, gelatinous-like tissue resembling hematoma. This author was unable to remove w/ cleansing, and is suspicious for tunneling underneath. Did not probe extensively into this area. There remains adhered slough along the medial aspect of this wound, w/ some granulation scattered throughout. Erythema and swelling periwound. White foam placed over area of exposed bone, and remaining wound bed covered w/ one continuous piece of black Simplace foam and bridged to L lateral LE. Difficulty obtaining a seal; Eakins used under the 5th toe to better conform to anatomy of foot. Significant concerns regarding the viability of a wound vac on this extremity. Seal obtained after extensive trouble- shooting. Left Dorsal Foot Diabetic Ulcer Dressing Type: Gauze Dressing Description: Shadowed Exudate Amount: Minimal Exudate Color: Red, Brown Exudate Characteristic(s): Dried Integumentary Issue Intervention: Dressing Applied Bernice Wound Tissue: Erythema, Swollen, Shiny Bernice Wound Swelling: Mild Wound Bed Color: Red, Yellow Wound Bed Constitution: Granulation Tissue (10%), Red/[place] - Non Granular Tissue (10%), Adhered Slough (80%) Wound Edges: Irregular Site Odor: None Site Measurement - Head-to-Toe Length X Width X Depth (cm): 3.9cmx2.9cmx0.2cm Skin Integrity Problem Comment: Slough-filled wound noted on dorsal aspect of L foot, predominantly adhered. Significant periwound erythema. This wound is significantly bobbin drier and less exudative than the other two wounds on this foot. Concerns about efficacy of wound vac over necrotic tissue. Periwound skin prepped and draped, and one continuous piece of black Simplace foam placed over wound bed and bridged to L lateral LE. Difficulty obtaining a good seal. Patient placed on vac from facility, which is not as forceful as hospital wound vac. DC orders included instructions about what to do if seal can't be maintained.
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
== END 2017-09-06 14:48 | DRG 629 ==
LOC: F3E 14:46
PROVIDERS: ADMIT Internal Medicine; ATTEND Internal Medicine
DX: E11.621 Type 2 diabetes mellitus with foot ulcer (principal); L97.524 Non-pressure chronic ulcer of other part of left foot with necrosis of bone; E11.59 Type 2 diabetes mellitus with other circulatory complications; L03.116 Cellulitis of left lower limb; I73.9 Peripheral vascular disease, unspecified; E11.649 Type 2 diabetes mellitus with hypoglycemia without coma; B95.62 Methicillin resistant Staphylococcus aureus infection as the cause of diseases classified elsewhere; I95.9 Hypotension, unspecified; N17.9 Acute kidney failure, unspecified; R33.9 Retention of urine, unspecified; I25.10 Atherosclerotic heart disease of native coronary artery without angina pectoris; I10 Essential (primary) hypertension; M48.02 Spinal stenosis, cervical region; D64.9 Anemia, unspecified; Z87.820 Personal history of traumatic brain injury; Z89.421 Acquired absence of other right toe(s); I25.2 Old myocardial infarction
CPT/HCPCS: 97162-GP; 97167-GO; 97530-GP; 97535-GO; C1751; G8978-GP-CK; G8979-GP-CJ; G8987-GO-CJ; G8988-GO-CI; J0295; J1335; J1650; J1815; J2250; J2704; J2997; J3010; J3370; Q9967

== ENCOUNTER 2017-09-20 08:27 | Inpatient (IN) | payer OTHER, MEDICAID ==
--- NOTE | 2017-09-20 09:22 | EDPHY ---
H & P Time Seen by Provider: 09/20/17 08:45 HPI/ROS: CHIEF COMPLAINT: "Possible sepsis" HISTORY OF PRESENT ILLNESS: The patient is a 62-year-old male with a complicated past medical history including diabetes an ongoing left foot infection. Patient has been followed by infectious disease and Dr. Abbott for his wound issues. Most recently, the patient had his wound debrided on 09/[address] Abbott[address] Patient's states the patient was admitted to [facility] 2 weeks ago for his foot infection. He was subsequently discharged to a long care facility. of last week the patient became septic at the care facility and was transferred to [facility]. Patient stayed in the ICU. He was ultimately discharged yesterday. At the care facility last night the patient had intermittent fevers. He has increasing left foot pain and redness. The is concerned that he has new onset sepsis. Patient states he has a mild headache. No shortness of breath or chest pain. No cough. No abdominal pain. Patient reports that his foot pain is slightly worse than usual. REVIEW OF SYSTEMS: My complete review of systems is negative except as mentioned in the HPI. Past Medical/Surgical History: Includes diabetes, traumatic brain injury, CVA, left foot infection, hypertension, sepsis Social history: The patient is in a long-term care facility. Smoking Status: Former smoker Physical Exam: 36.9, 152/72, 72, 18, 90% on room air GENERAL: No acute distress, alert. HEENT: Eyes normal to inspection, normal pharynx, no signs of dehydration. NECK: No thyromegaly, no lymphadenopathy, supple. RESPIRATORY: Clear to auscultation bilaterally, no rales, rhonchi or wheezing. CVS: Regular rate and rhythm, no rubs, murmurs, or gallops. ABDOMEN: Soft, nontender, nondistended, no organomegaly. BACK: Normal to inspection, no CVA tenderness. SKIN: Pale, no rash, warm, dry. EXTREMITIES: Patient has a dressing on his left foot. This was removed for evaluation. The patient has mild redness on his anterior aviles and ankle. The states this is slightly worse than normal. The lateral aspect of his foot has a large open wound. There is no significant surrounding erythema. No pus discharge. The patient also has a chronic heel wound. There is no surrounding erythema or discharge. No calf tenderness, no Homans sign or cords, no joint swelling. NEURO/PSYCH: Alert and oriented x3, normal mood and affect, normal motor sensory exam. No obvious cranial nerve deficit. Constitutional: Initial Vital Signs Temperature (C) 36.9 C 09/20/17 08:50 Heart Rate 72 09/20/17 08:50 Respiratory Rate 18 09/20/17 08:50 Blood Pressure 152/72 H 09/20/17 08:50 O2 Sat (%) 90 L 09/20/17 08:50 O2 Delivery Mode Room Air Allergies/Adverse Reactions: No Known Allergies Allergy (Unverified 05/28/13 09:29) Home Medications: Medication Instructions Recorded Aspirin [Aspirin 81mg (*)] 81 mg PO DAILY 08/23/17 Atorvastatin Calcium [Lipitor 40 40 mg PO HS 08/23/17 mg (*)] Clopidogrel Bisulfate [Plavix (*)] 75 mg PO DAILY 08/23/17 Docusate Sodium [Colace 100 MG (*)] 100 mg PO DAILY PRN 08/23/17 Melatonin [Melatonin 3 MG (*)] 3 mg PO HS PRN 08/24/17 morphINE SR [MS Contin/Oramorph SR 30 mg PO BID 08/24/17 30 mg (*)] morphINE SR [Ms Contin/Oramorph 15 15 mg PO BID 08/24/17 mg (*)] Atenolol [Tenormin 50 mg (*)] 50 mg PO BID tab 09/06/17 Amoxicillin/Clavulanate Pot 875 mg PO BID 09/20/17 [Augmentin 875 MG TAB (*)] Doxycycline Hyclate [Vibramycin 100 mg PO BID 09/20/17 100 MG (*)] Famotidine [Pepcid 20 MG (*)] 20 mg PO BID 09/20/17 Insulin 70/30 Human [HumuLIN 70/30 25 unit SC HS 09/20/17 SYRINGE] Insulin 70/30 Human [HumuLIN 70/30 45 unit SC DAILY 09/20/17 SYRINGE] Insulin Regular Human [HumuLIN R] 0 unit SC ACHS 09/20/17 Pregabalin [Lyrica 75mg (*)] 75 mg PO TID@08,17,20 09/20/17 Sodium Hypochlorite [Dakins 1/4 60 ml TP BID@06,14 09/20/17 Strength] oxyCODONE HCL/ACETAMINOPHEN 1 - 2 each PO Q6HRS PRN 09/20/17 [Percocet 7.5-325 mg Tablet] Medical Decision Making - Diagnostics Imaging Results: Imaging Impressions Chest X-Ray 09/20/17 09:23 Impression: Mild underlying bronchitis. ED Course/Re-evaluation: In the emergency department I discussed possible etiologies with the patient and . I answered all her questions. Patient had his PICC line access. Blood cultures and laboratory studies were obtained. White count is mildly elevated at 10. Hematocrit low at 29.5. Previous hematocrit in 08/2017 was 33. Platelets are 446. Patient's chemistry panel is pending. Lactic acid is 1.2. INR 1.19. EKG: Sinus rhythm. First-degree AV block. Repolarization abnormality. There is ST depression in I, II, V2 through V6. I compared this with an old EKG from 2012. These are new findings. 1046: The troponin is still pending. ASA ordered. 1100: The patient has elevated troponin at 0.99. I reviewed his previous troponins and they are elevated in the past. I discussed this with the hospitalist service. I ordered records from [facility] to obtain the most recent EKG. Patient's bed was upgraded to a PCU bed. I paged hospital service and informed him of the elevated troponin and abnormal EKG. 1155: I discussed the case with Dr. Montano in the ED. Differential Diagnosis: My differential includes but is not limited to cellulitis, abscess, osteomyelitis, bacteremia, sepsis, dehydration, electrolyte abnormality, sugar abnormality thrive, pneumonia, bronchitis, PE - Data Points Laboratory Results: Laboratory Results 09/20/17 09:42 09/20/17 09:42 09/20/17 09/20/17 09/20/17 09:42 09:42 09:42 WBC RBC Hgb Hct MCV MCH MCHC RDW Plt Count MPV Neut % (Auto) Lymph % (Auto) Johnston % (Auto) Eos % (Auto) Baso % (Auto) Nucleat RBC Rel Count Absolute Neuts (auto) Absolute Lymphs (auto) Absolute Monos (auto) Absolute Eos (auto) Absolute Basos (auto) Absolute Nucleated RBC Immature Gran % Immature Gran # PT 15.3 SEC H SEC (12.0-15.0) INR 1.19 H (0.83-1.16) APTT 31.9 SEC SEC (23.0-38.0) VBG Lactic Acid 1.2 mmol/L mmol/L (0.7-2.1) Sodium 137 mEq/L mEq/L (135-145) Potassium 4.2 mEq/L mEq/L (3.5-5.2) Chloride 102 mEq/L mEq/L (97-110) Carbon Dioxide 26 mEq/l mEq/l (22-31) Anion Gap 9 mEq/L mEq/L (8-16) BUN 14 mg/dL mg/dL (7-23) Creatinine 0.7 mg/dL mg/dL (0.7-1.3) Estimated GFR > 60 Glucose 178 mg/dL H mg/dL (70-100) Calcium 9.1 mg/dL mg/dL (8.5-10.4) Total Bilirubin 0.9 mg/dL mg/dL (0.1-1.4) Conjugated Bilirubin 0.4 mg/dL mg/dL (0.0-0.5) Unconjugated Bilirubin 0.5 mg/dL mg/dL (0.0-1.1) AST 22 IU/L IU/L (17-59) ALT 45 IU/L IU/L (21-72) Alkaline Phosphatase 138 IU/L H IU/L (38-126) Troponin I 0.990 ng/mL H ng/mL (0.000-0.034) NT-Pro-B Natriuret Pep 6090 pg/mL H pg/mL (0-125) Total Protein 5.9 g/dL L g/dL (6.3-8.2) Albumin 2.6 g/dL L g/dL (3.5-5.0) Lipase 25 IU/L IU/L (23-300) 09/20/17 09:42 WBC 10.09 10^3/uL H 10^3/uL (3.80-9.50) RBC 3.70 10^6/uL L 10^6/uL (4.40-6.38) Hgb 9.2 g/dL L g/dL (13.7-17.5) Hct 29.5 % L % (40.0-51.0) MCV 79.7 fL L fL (81.5-99.8) MCH 24.9 pg L pg (27.9-34.1) MCHC 31.2 g/dL L g/dL (32.4-36.7) RDW 17.3 % H % (11.5-15.2) Plt Count 446 10^3/uL H 10^3/uL (150-400) MPV 8.6 fL L fL (8.7-11.7) Neut % (Auto) 68.4 % % (39.3-74.2) Lymph % (Auto) 17.9 % % (15.0-45.0) Johnston % (Auto) 9.3 % % (4.5-13.0) Eos % (Auto) 2.2 % % (0.6-7.6) Baso % (Auto) 0.5 % % (0.3-1.7) Nucleat RBC Rel Count 0.0 % % (0.0-0.2) Absolute Neuts (auto) 6.90 10^3/uL H 10^3/uL (1.70-6.50) Absolute Lymphs (auto) 1.81 10^3/uL 10^3/uL (1.00-3.00) Absolute Monos (auto) 0.94 10^3/uL H 10^3/uL (0.30-0.80) Absolute Eos (auto) 0.22 10^3/uL 10^3/uL (0.03-0.40) Absolute Basos (auto) 0.05 10^3/uL 10^3/uL (0.02-0.10) Absolute Nucleated RBC 0.00 10^3/uL 10^3/uL (0-0.01) Immature Gran % 1.7 % H % (0.0-1.1) Immature Gran # 0.17 10^3/uL H 10^3/uL (0.00-0.10) PT INR APTT VBG Lactic Acid Sodium Potassium Chloride Carbon Dioxide Anion Gap BUN Creatinine Estimated GFR Glucose Calcium Total Bilirubin Conjugated Bilirubin Unconjugated Bilirubin AST ALT Alkaline Phosphatase Troponin I NT-Pro-B Natriuret Pep Total Protein Albumin Lipase Medications Given: Discontinued Medications Aspirin (Aspirin) 325 mg PO EDNOW ONE Stop: 09/20/17 10:48 Last Admin: 03/02/18 10:57 Dose: 325 mg Hydromorphone HCl (Dilaudid) 0.5 mg IVP EDNOW ONE Stop: 09/20/17 10:36 Last Admin: 09/20/17 10:51 Dose: 0.5 mg Sodium Chloride (Ns) 500 mls @ 1,000 mls/hr IV EDNOW ONE PRN Reason: Protocol Stop: 09/20/17 09:52 Last Admin: 09/20/17 09:40 Dose: 500 mls Departure - Departure Disposition: [facility] Acute Clinical Impression: Foot infection, Diabetic infection of left foot, Abnormal EKG, Elevated troponin Anemia Qualifiers: Anemia type: unspecified type Qualified Code(s): D64.9 - Anemia, unspecified Condition: Good
[2017-09-20] MEDS ORDERED: NS 500 ML IV ONE (09:23)
[2017-09-20 09:54] LABS: PLATELET COUNT 446 10^3/uL (150-400)
[2017-09-20 10:03] LABS: INR 1.19 (0.83-1.16); PROTIME(PATIENT) 15.3 SEC (12.0-15.0)
--- NOTE | 2017-09-20 10:21 | CPEKG ---
Heart Rate: 74 RR Interval: 811 P-R Interval: 240 QRSD Interval: 94 QT Interval: 448 QTC Interval: 497 P [place]: 30 QRS [place]: 14 T Wave [place]: 160 EKG Severity - ABNORMAL ECG - EKG Impression: SINUS RHYTHM EKG Impression: FIRST DEGREE AV BLOCK EKG Impression: REPOL ABNRM, PROBABLE ISCHEMIA, ANT-LAT LEADS EKG Impression: BORDERLINE PROLONGED QT INTERVAL Electronically Signed By: Paul Lamar 21-Sep-2017 07:23:56
[2017-09-20] MEDS ORDERED: HYDROmorphONE/DILAUDID 1 MG/ML INJ IVP ONE (10:35)
[2017-09-20] MEDS ORDERED: HYDROmorphONE/DILAUDID 2 MG/ML INJ ONE (10:39)
[2017-09-20] MEDS ORDERED: ASPIRIN 325 MG TAB PO ONE (10:47)
[2017-09-20] MEDS ORDERED: ONDANSETRON DISINTEGRATING 4 MG TAB PO PRN (11:05)
[2017-09-20] MEDS ORDERED: ONDANSETRON 4 MG/2 ML VIAL IVP PRN (11:05)
[2017-09-20] MEDS ORDERED: D50W 25 GM/50 ML SYR IVP PRN (12:15)
[2017-09-20] MEDS ORDERED: MELATONIN 3 MG TAB PO PRN (12:16)
[2017-09-20] MEDS ORDERED: DOCUSATE SODIUM 100 MG CAP PO PRN (12:16)
--- NOTE | 2017-09-20 13:27 | GHP ---
[f rep st] HISTORY AND PHYSICAL DATE OF ADMISSION: 09/20/2017 CHIEF COMPLAINT: Fever, chronic left leg wound infection. HISTORY OF PRESENT ILLNESS: A 62-year-old male with MRSA positive left leg infection, right foot ulcer, uncontrolled diabetes, who was transferred from [facility] with fevers and concern for progressive infection. He was admitted here in August [facility], and underwent left foot toe amputation and left heel debridement. He was treated with IV vancomycin and had a wound VAC at discharge. Primary surgeon is Dr. Abbott. The patient was discharged, was doing well, however, re-presented to [facility] 2017 in septic shock due to infection. There, he was treated with IV vancomycin and Zosyn, and discharged to [facility] on doxycycline and Augmentin yesterday, 09/19/2017. His temperature there was greater than 101. Staff noted his foot to be red, and thus Dr. Herniquez advised patient to be admitted to [facility] for further evaluation. The patient is accompanied by his sister and [id number], as the patient is a poor historian, given history of TBI and stroke. When I interview the patient , he denies chest pain, shortness of breath, dizziness, or lightheadedness. He has some pain in the left leg. REVIEW OF SYSTEMS: I completed a 10-point review of systems, negative except as noted in HPI. PAST MEDICAL HISTORY: 1. Positive MRSA left foot wound. 2. Uncontrolled diabetes. 3. Right foot ulcer status post 1st and 5th toe amputation. 4. Peripheral vascular disease. 5. Dementia. 6. Coronary artery disease. 7. Traumatic brain injury. 8. Hypertension. 9. Stroke. 10. Echocardiogram 2012, normal EF, trace TR. 11. Coccyx pressure ulcer, present at admission PAST SURGICAL HISTORY: 1. Right toe amputation. 2. Left foot ray resection. 3. Plantar eschar ulcer excision of the 5th toe August 02, 2017. 4. CTA 08/26/2017. Left leg showed segmental SFA atherosclerotic peripheral vascular disease rated from 20% to 30% in degree of stenosis to 80% to 90% at various locations. Segmental right SFA disease high-grade on the right. FAMILY HISTORY: Cancer, depression, diabetes. SOCIAL HISTORY: Sister Kimmy is his MD POA. Was just discharged from [facility] to [facility] yesterday. No alcohol, tobacco, or illicits currently. HOME MEDICATIONS: Percocet 7.5/325 p.r.n., MS Contin 45 mg twice daily, Dakin' s dressing changes, Lyrica 75 mg three times daily, melatonin, regular insulin sliding scale, insulin 70/30, 25 units at bedtime, 45 units daily, Pepcid 20 mg twice daily, doxycycline 100 mg twice daily, docusate, Plavix 75 mg daily, atorvastatin 40 mg daily, atenolol 500 mg twice daily, aspirin 81, Augmentin. ALLERGIES: None. PHYSICAL EXAMINATION: VITAL SIGNS: Temperature 36.9, blood pressure 152/72, heart rate is in 70s, 90% on room air, 97 on 2 L. GENERAL: Appears miranda, ashen , pale. HEENT: Dry mucous membranes. CV: Regular. No murmurs, gallops, rubs. LUNGS: Clear anteriorly, but diminished at bases. ABDOMEN: Obese, soft. No tenderness with palpation. No Stevenson. MUSCULOSKELETAL: Right: 1st and 5th toe amputation, 2nd toe ulcer with eschar. Left foot/ulcer wounds red, purulent, foul odor. NEURO: Cranial nerves 2 through 12 intact. PSYCH: Alert to [place], to his sister (normally knows name, people and president, not place or date). LABS: WBC is 10, hemoglobin 9, hematocrit is 29, MCV 79, platelets 446. Lactate is 1.2. Sodium 137, potassium 4.2, chloride 102, carbon dioxide 26, creatinine 0.7, glucose 178. Troponin 0.99 (baseline 0.55, 0.99). BNP is 6090. Total protein is 5.9, albumin is 2.6, lipase is 25. EKG is personally reviewed by me. T-wave inversions V2-V6. This is new when compared to old EKG here, as well as 1 from [facility] on 09/12/2017. Chest x-ray personally reviewed by me. No evidence of effusion or opacity. ASSESSMENT AND PLAN: 1. Acute on chronic left leg wound infection: IV vanc/Zosyn. Discussed with Dr. Henriquez and will need amputation, but hardware complicates as would need BKA. Ortho to evaluate for possible removal. Bld cultures pending. Wound care 2. Fever: temp >100 at [facility] last night. Just discharged from [facility] yesterday for septic shock from foot infection; was discharged on Augmentin/Doxy. Negative influenza there. Zosyn. Blood cultures pending. Normal lactate. 2. Non-ST segment myocardial infarction: new TWI compared EKG 09/12/2017 at OSH. He currently denies chest pain or shortness of breath. Trop here 0.99--> .0.7. Currently with no chest pain or SOB. Likely demand with acute illness. ( baseline troponin 0.5-0.99) Echocardiogram to evaluate for wall motion abnormality. Hold off on heparin. Likely needs stress prior to surgery. 3. Uncontrolled diabetes. Resume home NPH plus,sliding scale insulin. 4. Peripheral vascular disease. Aspirin, statin, Plavix. 5. Cerebrovascular accident. Statin, aspirin, Plavix. 6. History of traumatic brain injury. His sister is his MD JOHN. Baseline mental status is to self, family and President 7. Hypertension. Resume home medications. 8. Diet: Cardiac, diabetic. 9. Deep venous thrombosis prophylaxis, Lovenox. 10. Patient warrants inpatient admission given acute fevers, warranting IV antibiotics, and further evaluation by surgery and telemetry. /[id number]/MODL MTDD
[2017-09-20] MEDS: SODIUM HYPOCHLORITE (DAKINS 1/4 STR) 120 ML BTL TP SCH (15:36)
--- NOTE | 2017-09-20 15:40 | ECHO ---
[email or web address] [address] [address] Main: [phone] Fax: [email or web address] Echocardiogram Name: TAM KERR MR#: [id number] Study Date: 09/20/2017 Study Time: 01:03 PM Date of : 1955 Age: 62 year(s) Height: 175.3 cm (69 in.) Weight: 113.4 kg (250 lb.) BSA: 2.27 m2 Gender: Male Examination: Limited Echo Indication: eval for WMA/TWI/NSTEMI, Fever/left leg wound Image Quality: Technically Difficult Contrast: Requested by: Justyna Montano BP: 154 mmHg/77 mmHg Heart Rate: Rhythm: Indication: eval for WMA/TWI/NSTEMI, Fever/left leg wound Procedure Staff As[employer]wear: Neli Mendoza [facility] Reading Physician: Bunny Lopez MD Requesting Provider: Conclusions: No pericardial effusion. Preserved left ventricular systolic function. Aortic valve maximum gradient of 16 mm of mercury. Measurements: Chambers Valvular Assessment AV/MV Valvular Assessment TV/PV Normal Normal Normal Name Value Range Name Value Range Name Value Range Ao Ines (MM): 3.4 cm (2.2 cm-3.7 AV meanP mmHg ( - ) cm) MV E Vmax: 1.15 m/s ( - ) LVDd (2D): 4.9 cm (4.2 cm-5.9 MV A Vmax: 0.86 m/s ( - ) cm) MV E/A: 1.34 ( - ) Continued Measurements: Chambers Valvular Assessment AV/MV Name Value Name Value LADs: 3.3 cm MV E/E' Septal: 25.10 MV E/E' Lateral: 15.50 Findings: Left Ventricle: Normal size left ventricle. Left Atrium: The left atrium is normal in size. Mitral Valve: MV opens well.. Aortic Valve: Patient: TAM KERR Study Date: 09/20/2017 Page 1 of 2 01:03 PM AV max PG is 16. AV mean PG is 9mmHG.. Exam Comments: Technically difficult study. Unable to assess WMA or EF.. (No Signature Object) Patient: TAM KERR Study Date: 09/20/2017 Page 2 of 2 01:03 PM D:_[id number]
[2017-09-20] MEDS: VANCOMYCIN 1.5 GM in NS 250 ML IV SCH (16:19)
--- NOTE | 2017-09-20 16:34 | CPEKG ---
Heart Rate: 74 RR Interval: 811 P-R Interval: 252 QRSD Interval: 86 QT Interval: 452 QTC Interval: 502 P [place]: 55 QRS [place]: 13 T Wave [place]: 155 EKG Severity - ABNORMAL ECG - EKG Impression: SINUS RHYTHM EKG Impression: FIRST DEGREE AV BLOCK EKG Impression: REPOL ABNRM, PROBABLE ISCHEMIA, ANT-LAT LEADS EKG Impression: PROLONGED QT INTERVAL Electronically Signed By: Kamari Vidales 20-Sep-2017 20:42:05
--- NOTE | 2017-09-20 16:51 | WOCRNPDOC ---
WOCRN Advanced Assessment Note - Skin Integrity Problem, Advanced Assess Coccyx Pressure Injury Dressing Type: Open to Air Exudate Amount: None Exudate Characteristic(s): None Integumentary Issue Intervention: Barrier Cream Applied (Calazime) Bernice Wound Tissue: Blanching, Erythema Bernice Wound Swelling: Mild Wound Bed Color: Red Wound Bed Constitution: Red/[place] - Non Granular Tissue Site Measurement - Head-to-Toe Length X Width X Depth (cm): 0.7cmx0.4cmx0.1cm Pressure Injury Stage: Stage 2 Pressure Injury Present on Admit: Yes (hospitalist notified) Skin Integrity Problem Comment: Discrete area of partial-thickness tissue loss over patient's coccyx, appaearance consistent w/ stage 2 pressure injury. Periwound skin is raw and denuded, and there may be a component of moisture- associated skin damage r/t this wound as well. Calazime applied, and patient positioned on his left side. Pressure-relieving interventions initiated. Left Foot Dressing Type: Adaptic Touch, Kerlix Dressing Description: Not Intact Exudate Amount: None Exudate Characteristic(s): None Integumentary Issue Intervention: Dressing Applied Bernice Wound Tissue: Erythema (marked in ED), Swollen, Calloused (surrounding heel ) Ebrnice Wound Swelling: Mild Wound Bed Color: Black, Red, Yellow Wound Bed Constitution: Red/[place] - Non Granular Tissue, Bone (palpable w/ cotton -tipped applicator in lateral wound), Adhered Slough, Stable Eschar (L heel) Site Odor: Moderate Site Measurement - Head-to-Toe Length X Width X Depth (cm): L lateral foot: 9.5cmx4.5cmx1.5cm (w/ 1.5cm tunnel in medial aspect of wound that goes downward) . L heel: [id number]. L dorsal foot: 4.4cmx3.5cmx0.3cm Skin Integrity Problem Comment: Patient well-known to this RN from previous hospitalizations at both [facility] and [facility]. Wound on L heel in 40% eschar, 40% dried slough, and 20% red, non-granulating tissue. Lateral wound is 40% dried slough, 50% dried non-granulating tissue, and 10% moist adhered slough in a tunnel that drops down approx. 1.5 cm and probes to bone. Dorsal wound is 50/50 adhered slough and non-granulating tissue, currently dry. There is erythema and swelling throughout this extremity and extending up onto his L anterior aviles, which was marked in the ED. Will initate dressing change w/ Dakins solution BID , as this wound has been exudative and macerated. Dakins helps control odor, dries tissues, and is anti-microbial. Wound on both heel and lateral foot concerning for osteomyelitis. Wound care was consulted by hospitalist, and will continue to follow pending approval from Drs. Abbott and Martinez.
[2017-09-20] MEDS: PREGABALIN 75 MG CAP PO SCH ×2 (17:16→21:48)
[2017-09-20] MEDS: INSULIN LISPRO 100 UNIT/ML SC SCH (17:16)
--- NOTE | 2017-09-20 17:19 | PDMN ---
Medical Necessity Medical necessity: Pt meets IP criteria per MD; est los >2 mn for eval/tx of fevers, acute on chronic L leg progressive wound infection & possible NSTEMI; admit for further workup/cardiac monitoring, ID consult, IV abx, Wound Care consult & therapies; hx recent hospitalization for septic shock, PVD, uncontrolled diabetes, dementia, TBI, stroke, CAD; per H&P & order 09/20/17
[2017-09-20] MEDS: PIPERACILLIN/TAZO 3.375 GM/DEX 50 ML IV SCH (18:33)
[2017-09-20] MEDS: INSULIN 70/30 HUMAN 100 UNIT/ML SYR SC SCH (21:47)
[2017-09-20] MEDS: FAMOTIDINE 20 MG TAB PO SCH (21:48)
[2017-09-20] MEDS: morphINE SR 15 MG TAB PO SCH (21:48)
[2017-09-20] MEDS: morphINE SR 30 MG TAB PO SCH (21:48)
[2017-09-20] MEDS: ATORVASTATIN CALCIUM 40 MG TAB PO SCH (21:48)
[2017-09-20] MEDS: ATENOLOL 50 MG TAB PO SCH (21:51)
--- NOTE | 2017-09-20 22:35 | GCON ---
[f rep st] CONSULTATION HISTORY OF PRESENT ILLNESS: This is a 62-year-old gentleman, who presented to the hospital after dis charge from [facility] yesterday with increased fevers and confusion. The patient is well known to our service for right foot osteomyelitis and decubitus ulcer. The patient had these present on arrival. He has been treated in the past for MRSA as recently as 1 month ago. The patient's foot has been d ebrided multiple times, including 5th metatarsal amputation for osteomyelitis and infection with diab etic neuropathy. The patient has had previous angioplasty done on the SFA for inflow. He does have Doppler signals down to his foot. PAST MEDICAL HISTORY: Significant for diabetes, uncontrolled peripheral vascular disease, traumatic brain injury with associated dementia, coronary artery disease, hypertension, stroke, and pressure ul cer currently as well. PAST SURGICAL HISTORY: Includes right toe amputation left 5th ray amputation. Angioplasty and stent performed of the right SFA. FAMILY HISTORY: Significant for diabetes and cancer. His sister, Kimmy, is his power of machine strap buckler. SOCIAL HISTORY: He denies any tobacco, alcohol, or drug use. MEDICATIONS: Include Percocet, MS Contin, Lyrica, melatonin, insulin, Pepcid, Plavix, atenolol, aspi rin, Augmentin, and doxycycline. ALLERGIES: He has no known drug allergies. REVIEW OF SYSTEMS: Significant for dementia and his chronic leg wound, his diabetes. All his chroni c medical problems were stable. He did have an elevated troponin here in the ER, which will be taken care of by Medicine and Cardiology. PHYSICAL EXAM: VITAL SIGNS: Today, the patient is afebrile with a temperature of 36.9, blood pressu re of 152/72. HEART: Regular rate and rhythm. LUNGS: Clear to auscultation. ABDOMEN: Protuberan t. No hepatosplenomegaly. No masses. EXTREMITIES: His right foot has amputation of 1st and 5th to es. He has left foot ulcers which are chronic and show signs of superficial necrosis. When they wer e debrided, they come down to bleeding tissue, but this has been done multiple times. LABORATORY DATA: Show white count of 10, hemoglobin 9, hematocrit 29, with microcytic pattern. Plat elet count is 466. Troponin 0.99. BNP is 6000. All his other electrolytes are within normal limits , with the exception of glucose being elevated. IMAGING: X-ray of the tibia, AP and lateral, are performed and this will be looked at by Orthopedic Surgery to determine whether this can be removed prior to possible BKA. ASSESSMENT: Patient has chronic left leg infection, diabetes with methicillin-resistant Staphylococc us aureus, likely will need below-knee amputation. His sister has consented to the procedure; zara samayoa, below-knee amputation versus above-knee amputation are being considered. The patient remains on P lavix, aspirin. He has had a recent non ST-segment myocardial infarction, by report. This will have to be treated and managed prior to any surgery. I have discussed this with the patient's sister and with Medicine and Orthopedic Surgery. Will continue to follow him until he is deemed stable for a p rocedure and the particular procedure still yet to be determined at the time of surgery. The sister is well aware of this and has had all questions answered. /[id number]/MODL
[2017-09-21] MEDS: PIPERACILLIN/TAZO 3.375 GM/DEX 50 ML IV SCH ×5 (00:20→23:27)
[2017-09-21] MEDS: VANCOMYCIN 1.5 GM in NS 250 ML IV SCH ×2 (03:54→14:48)
[2017-09-21] MEDS: INSULIN 70/30 HUMAN 100 UNIT/ML SYR SC SCH ×2 (10:14→21:13)
[2017-09-21] MEDS: INSULIN LISPRO 100 UNIT/ML SC SCH ×3 (10:14→17:38)
[2017-09-21] MEDS: ENOXAPARIN 40 MG/0.4 ML SYR SC SCH (10:15)
[2017-09-21] MEDS: morphINE SR 15 MG TAB PO SCH ×2 (10:18→21:14)
[2017-09-21] MEDS: morphINE SR 30 MG TAB PO SCH ×2 (10:18→21:14)
[2017-09-21] MEDS: PREGABALIN 75 MG CAP PO SCH ×3 (10:18→21:14)
[2017-09-21] MEDS: ASPIRIN 81 MG CHEWABLE TAB PO SCH (10:18)
[2017-09-21] MEDS: CLOPIDOGREL BISULFATE 75 MG TAB PO SCH (10:18)
[2017-09-21] MEDS: ATENOLOL 50 MG TAB PO SCH ×2 (10:18→21:14)
[2017-09-21] MEDS: FAMOTIDINE 20 MG TAB PO SCH ×2 (10:19→21:14)
[2017-09-21] MEDS: SODIUM HYPOCHLORITE (DAKINS 1/4 STR) 120 ML BTL TP SCH ×2 (13:18→13:19)
--- NOTE | 2017-09-21 14:12 | HOSPPROG ---
Hospitalist Progress Note Assessment/Plan: * Foot infection -IV vanco, IV zosyn - ID to see -per Dr. Henriquez - consider amputation -may need AKA if hardware can't be removed * EKG changes - new compared with previous EKG -Lexiscan stress test - especially with surgery anticipated -borderline troponin elevation * PVD -ASA, Plavix, lipitor * DM II -insulin 70/30 * Dementia/TBI/NH resident * Chronic pain with continuous narcotic dependency -MS contin Subjective: No new complaints. Objective: Vital Signs Temp Pulse Resp BP Pulse Ox 36.6 C 64 16 125/59 H 96 09/21/17 12:44 09/21/17 12:44 09/21/17 12:44 09/21/17 12:44 09/21/17 12:44 Laboratory Results 09/21/17 05:55 09/21/17 05:55 09/20/17 09/21/17 09/22/17 05:59 05:59 05:59 Intake Total 580 Output Total 1775 Balance -1195 PT 15.3 SEC (12.0-15.0) H 09/20/17 09:42 INR 1.19 (0.83-1.16) H 09/20/17 09:42 d/w Dr. Henriquez - likely need amputation EKG viewed, my personal interpretation is - ant/lat TWI - new compared with old EKG - Physical Exam Constitutional: no apparent distress, appears nourished, not in pain Cardiovascular: regular rate and rhythym, no murmur, rub, or gallop Respiratory: no respiratory distress, no rales or rhonchi, clear to auscultation Gastrointestinal: normoactive bowel sounds, soft, non-tender abdomen, no palpable masses Skin: no rashes or abrasions, no fluctuance, no induration Neurologic: No AAOx3 Psychiatric: encephalopathic, poor insight, poor judgement, poor memory, No interacting appropriately, No agitated ICD10 Worksheet Patient Problems: Problems Problem Status Onset Abnormal EKG Acute Anemia Acute Diabetic infection of left foot Acute Elevated troponin Acute Foot infection Acute Encephalopathy acute Acute
--- NOTE | 2017-09-21 14:19 | ASMTCMCOM ---
CM Note CM Note Notes: Pt has been admitted with fever, MRSA + L foot infection and R foot ulcer from [facility]. He was here in August and had a L toe amputation. He was discharged on IV ABX and with a wound vac. He was re-admitted to [facility] on 09/10 for sepsis and then discharged to [place] yesterday. He is a poor historian (TBI, CVA) and his sister Kimmy Hayes is his MDPOA. He is back on IV ABX and may need a BKA. Anticipate he will d/c back to [facility] when medically cleared but will continue to follow for any change in needs. Date Signed: 09/21/2017 02:18 PM Electronically Signed By:ANDRES Trejo
--- NOTE | 2017-09-21 15:33 | SOAPPROG ---
SOAP Progress Note Assessment/Plan: Assessment/Plan: Non ST elevation LA versus chronic Trop elevation Agrees to amputation today to keep him from being in hospital for long/ indefinite periods OOB with assist No chest pain Wounds on foot stable - dry eschar on heel tender to bedside callous debridement. Dorsum with granulation. Lateral still has some necrotic tissue but minimal Overall foot stable Will need to d/w ortho re feasibility of removing hardware versus AKA with abduction prevention All questions addressed Stress tomorrow? OR next week 09/21/17 15:30 Objective: Vital Signs Temp Pulse Resp BP Pulse Ox 36.6 C 64 16 125/59 H 96 09/21/17 12:44 09/21/17 12:44 09/21/17 12:44 09/21/17 12:44 09/21/17 12:44 Laboratory Results 09/21/17 05:55 09/21/17 05:55 09/20/17 09/21/17 09/22/17 05:59 05:59 05:59 Intake Total 580 Output Total 1775 Balance -1195 PT 15.3 SEC (12.0-15.0) H 09/20/17 09:42 INR 1.19 (0.83-1.16) H 09/20/17 09:42 ICD10 Worksheet Patient Problems: Problems Problem Status Onset Abnormal EKG Acute Anemia Acute Diabetic infection of left foot Acute Elevated troponin Acute Foot infection Acute Encephalopathy acute Acute
--- NOTE | 2017-09-21 15:37 | PCMIDPN ---
Assessment/Plan: Assessment/Plan: 1. Chronic LLE wounds with recent recurrent cellulitis: - mild erythema on dorsum and plantar surface but foot not warm now. -Wounds with eschar/necrosis, slough, and hole on plantar surface tracking deep to bone. - Cultures from Aug 2017 with MRSA. - Currently on vanco, zosyn -Blood cx pending -Wbc improved today -Appreciate surgery eval. Awaiting ortho eval -for eventual BKA vs AKA. -Discussed plan of care with sister, patient - care coordinated with RN. Meds vanco 1.5gm q12-09/20/17 zosyn 3.375gm q6-09/20/17 Subjective: afebrile. Patient known to ID service. Patient recently was here from early to mid aug. Was on Vanco for 14 days for LLE cellulitis. chronic wounds. had wound vac. Was getting debrdiements intermittently by Dr. Abbott. Apparently about 10 days ago, but was admitted to [facility] for recurrent LLE cellulitis. He was seen by ID, ortho services there. Pt didn't want to have surgery there. He was then sent back to [facility] on doxy. Within one day started to have fevers again and was brought back here. Luekocytosis on admit. Placed on vanco, zosyn. Objective: Vital Signs Temp Pulse Resp BP Pulse Ox 36.6 C 64 16 125/59 H 96 09/21/17 12:44 09/21/17 12:44 09/21/17 12:44 09/21/17 12:44 09/21/17 12:44 Laboratory Results 09/21/17 05:55 09/21/17 05:55 09/20/17 09/21/17 09/22/17 05:59 05:59 05:59 Intake Total 580 Output Total 1775 Balance -1195 - Physical Exam General Appearance: alert, no apparent distress Respiratory: lungs clear Cardiac/Chest: regular rate, rhythm Extremities: swelling Abdomen: normal bowel sounds, non-tender, soft, No distended Skin: erythema (foot with large ulcer on dorsum and heel. probes deep to bone. necrotic areas noted. ) - Time Spent With Patient Time Spent with Patient: greater than 35 minutes Time Spent with Patient: Greater than 35 minutes spent on this patients care, greater than 50% of time spent counseling, educating, and coordinating care regarding the above mentioned plan. ICD10 Worksheet Patient Problems: Problems Problem Status Onset Abnormal EKG Acute Anemia Acute Diabetic infection of left foot Acute Elevated troponin Acute Encephalopathy acute Acute Foot infection Acute
[2017-09-21] MEDS: ATORVASTATIN CALCIUM 40 MG TAB PO SCH (21:14)
[2017-09-22] MEDS: VANCOMYCIN 1.5 GM in NS 250 ML IV SCH ×2 (02:56→16:42)
[2017-09-22] MEDS: PIPERACILLIN/TAZO 3.375 GM/DEX 50 ML IV SCH ×3 (05:36→17:59)
[2017-09-22 05:54] LABS: PLATELET COUNT 358 10^3/uL (150-400)
[2017-09-22] MEDS ORDERED: REGADENOSON 0.4 MG/5 ML SYR IVP ONE (09:43)
--- NOTE | 2017-09-22 10:36 | SOAPPROG ---
SOAP Progress Note Assessment/Plan: Assessment/Plan: Non ST elevation NM versus chronic Trop elevation Leucocytosis resolved on Vanco/zosyn Agrees to amputation today to keep him from being in hospital for long/ indefinite periods OOB with assist No chest pain/clinically stable Wounds on foot stable - dry eschar on heel tender to bedside callous debridement. Dorsum with granulation. Lateral still has some necrotic tissue but minimal Overall foot stable Will need to d/w ortho re feasibility of removing hardware versus AKA with abduction prevention All questions addressed Stress tomorrow? OR next week 09/21/17 15:30 09/22/17 10:35 Objective: Vital Signs Temp Pulse Resp BP Pulse Ox 37.0 C 73 15 177/77 H 94 09/22/17 07:58 09/22/17 07:58 09/22/17 07:58 09/22/17 07:58 09/22/17 07:58 Microbiology 09/21/17 17:30 Respiratory Panel (PCR) - Final Nasal, Sinus - Swab No Organism Detected Laboratory Results 09/22/17 05:35 09/22/17 05:35 09/21/17 09/22/17 09/23/17 05:59 05:59 05:59 Intake Total 580 1540 Output Total 1775 1500 Balance -1195 40 PT 15.3 SEC (12.0-15.0) H 09/20/17 09:42 INR 1.19 (0.83-1.16) H 09/20/17 09:42 ICD10 Worksheet Patient Problems: Problems Problem Status Onset Abnormal EKG Acute Anemia Acute Diabetic infection of left foot Acute Elevated troponin Acute Foot infection Acute Encephalopathy acute Acute
[2017-09-22] MEDS ORDERED: INSULIN 70/30 HUMAN 100 UNIT/ML SYR SC SCH (12:13)
[2017-09-22] MEDS ORDERED: INSULIN 70/30 HUMAN 100 UNIT/ML SYR SC ONE (12:14)
--- NOTE | 2017-09-22 12:55 | CPR ---
[f rep st] NONINVASIVE CARDIAC PROCEDURE REPORT DATE OF PROCEDURE: 09/22/2017 PROCEDURE PERFORMED: Pharmacologic nuclear stress test. INDICATION FOR PROCEDURE: Baseline abnormal ECG with diffuse T-wave inversions throughout the precor dial leads as well as leads I and aVL. Previous ECG from 2012 demonstrated normal T-waves. PROCEDURE: After informed consent was obtained, the patient underwent infusion of 0.4 mg of Lexiscan . At peak hyperemia, the patient was injected with 21.7 millicuries of Tcn99 sestamibi. The patient had no symptoms or no ECG changes throughout the course of the study. Peak blood pressure of 152/93. Oxygen saturation 100% throughout the entire study. Remained in sinu s rhythm. CONCLUSION: 1. Normal pharmacologic stress test. 2. Abnormal baseline ECG with diffuse T-wave inversion throughout the precordial leads as well as I and aVL. 3. Nuclear images pending. /[id number]/MODL
[2017-09-22] MEDS ORDERED: POLYETHYLENE GLYCOL 3350 17 GM PKT PO PRN (13:12)
[2017-09-22] MEDS ORDERED: BISACODYL 10 MG SUPP PR PRN (13:12)
[2017-09-22] MEDS ORDERED: MAGNESIUM HYDROXIDE 30 ML UDCUP PO PRN (13:12)
[2017-09-22] MEDS ORDERED: LACTULOSE 20 GM/30 ML UDCUP PO PRN (13:12)
[2017-09-22] MEDS: CLOPIDOGREL BISULFATE 75 MG TAB PO SCH (13:38)
[2017-09-22] MEDS: ASPIRIN 81 MG CHEWABLE TAB PO SCH (13:38)
[2017-09-22] MEDS: morphINE SR 15 MG TAB PO SCH ×2 (13:38→22:15)
[2017-09-22] MEDS: morphINE SR 30 MG TAB PO SCH ×2 (13:38→22:15)
[2017-09-22] MEDS: PREGABALIN 75 MG CAP PO SCH ×3 (13:39→22:15)
[2017-09-22] MEDS: ATENOLOL 50 MG TAB PO SCH ×2 (13:39→22:14)
[2017-09-22] MEDS: FAMOTIDINE 20 MG TAB PO SCH ×2 (13:39→22:16)
[2017-09-22] MEDS: INSULIN LISPRO 100 UNIT/ML SC SCH ×3 (13:39→17:58)
[2017-09-22] MEDS: ENOXAPARIN 40 MG/0.4 ML SYR SC SCH (13:40)
[2017-09-22] MEDS: SODIUM HYPOCHLORITE (DAKINS 1/4 STR) 120 ML BTL TP SCH ×2 (13:49→16:41)
[2017-09-22] MEDS: INSULIN 70/30 HUMAN 100 UNIT/ML SYR SC SCH ×2 (15:05→22:18)
--- NOTE | 2017-09-22 15:19 | HOSPPROG ---
Hospitalist Progress Note Assessment/Plan: * Foot infection -IV vanco, IV zosyn -per Dr. Henriquez - consider amputation -may need AKA if hardware can't be removed * EKG changes - new compared with previous EKG -stress images abnormal - rest images to be done in am -borderline troponin elevation - suspect stress of sepsis * PVD -ASA, Plavix, lipitor * DM II -insulin 70/30 - previous home dose 110 u am, 90 u pm -titrate insulin * Dementia/TBI/NH resident * Chronic pain with continuous narcotic dependency -MS contin Subjective: No complaints Objective: Vital Signs Temp Pulse Resp BP Pulse Ox 36.5 C 68 18 142/89 H 93 09/22/17 11:23 09/22/17 11:23 09/22/17 11:23 09/22/17 11:23 09/22/17 11:23 Microbiology 09/21/17 17:30 Respiratory Panel (PCR) - Final Nasal, Sinus - Swab No Organism Detected Laboratory Results 09/22/17 05:35 09/22/17 05:35 09/21/17 09/22/17 09/23/17 05:59 05:59 05:59 Intake Total 580 1540 Output Total 1775 1500 Balance -1195 40 PT 15.3 SEC (12.0-15.0) H 09/20/17 09:42 INR 1.19 (0.83-1.16) H 09/20/17 09:42 case d/w Dr Henriquez - OR this week stress test d/w radiology - abnormal stress, needs rest images in am - Physical Exam Constitutional: no apparent distress, appears nourished, not in pain Cardiovascular: regular rate and rhythym, no murmur, rub, or gallop Respiratory: no respiratory distress, no rales or rhonchi, clear to auscultation Gastrointestinal: normoactive bowel sounds, soft, non-tender abdomen, no palpable masses Skin: no rashes or abrasions, no fluctuance, no induration Neurologic: weakness Psychiatric: not anxious, not encephalopathic, thought process linear, poor insight ICD10 Worksheet Patient Problems: Problems Problem Status Onset Abnormal EKG Acute Anemia Acute Diabetic infection of left foot Acute Elevated troponin Acute Foot infection Acute Encephalopathy acute Acute
[2017-09-22] MEDS: SENNOSIDES/DOCUSATE SODIUM TAB PO SCH (22:15)
[2017-09-22] MEDS: ATORVASTATIN CALCIUM 40 MG TAB PO SCH (22:16)
[2017-09-23] MEDS: PIPERACILLIN/TAZO 3.375 GM/DEX 50 ML IV SCH ×4 (00:14→17:03)
[2017-09-23] MEDS: VANCOMYCIN 1.5 GM in NS 250 ML IV SCH ×2 (03:15→14:27)
[2017-09-23] MEDS: PREGABALIN 75 MG CAP PO SCH ×3 (06:06→22:05)
[2017-09-23] MEDS: SODIUM HYPOCHLORITE (DAKINS 1/4 STR) 120 ML BTL TP SCH ×2 (06:06→13:20)
--- NOTE | 2017-09-23 08:50 | CPEKG ---
Heart Rate: 62 RR Interval: 968 P-R Interval: 260 QRSD Interval: 84 QT Interval: 484 QTC Interval: 492 P Holbrook: 42 QRS Holbrook: 16 T Wave Holbrook: 160 EKG Severity - ABNORMAL ECG - EKG Impression: SINUS RHYTHM EKG Impression: FIRST DEGREE AV BLOCK EKG Impression: REPOL ABNRM, PROBABLE ISCHEMIA, ANT-LAT LEADS EKG Impression: BORDERLINE PROLONGED QT INTERVAL Electronically Signed By: Kamari Mcgee 23-Sep-2017 10:29:14
[2017-09-23] MEDS: morphINE SR 15 MG TAB PO SCH ×2 (10:24→22:05)
[2017-09-23] MEDS: ATENOLOL 50 MG TAB PO SCH ×2 (10:24→22:06)
[2017-09-23] MEDS: FAMOTIDINE 20 MG TAB PO SCH ×2 (10:24→22:06)
[2017-09-23] MEDS: ENOXAPARIN 40 MG/0.4 ML SYR SC SCH (10:24)
[2017-09-23] MEDS: ASPIRIN 81 MG CHEWABLE TAB PO SCH (10:24)
[2017-09-23] MEDS: CLOPIDOGREL BISULFATE 75 MG TAB PO SCH (10:24)
[2017-09-23] MEDS: SENNOSIDES/DOCUSATE SODIUM TAB PO SCH ×2 (10:25→22:06)
[2017-09-23] MEDS: morphINE SR 30 MG TAB PO SCH ×2 (10:25→22:05)
[2017-09-23] MEDS: INSULIN LISPRO 100 UNIT/ML SC SCH ×3 (10:25→18:12)
--- NOTE | 2017-09-23 12:49 | SOAPPROG ---
SOAP Progress Note Assessment/Plan: Assessment/Plan: Non ST elevation MT versus chronic Trop elevation- awaiting stress test results Plan on AKA or BKA this week. Orthopedic surgery Dr. Sesay consult for possible tibial plate removal intraoperatively Leucocytosis resolved on Vanco/zosyn Agrees to amputation today to keep him from being in hospital for long/ indefinite periods OOB with PT No chest pain/clinically stable Wounds on foot stable - dry eschar on heel tender to bedside callous debridement. Dorsum with granulation. Lateral still has some necrotic tissue but minimal Overall foot stable Will need to d/w ortho re feasibility of removing hardware versus AKA with abduction prevention All questions addressed 09/21/17 15:30 09/22/17 10:35 09/23/17 12:47 Objective: Vital Signs Temp Pulse Resp BP Pulse Ox 36.6 C 61 14 173/83 H 4 L 09/23/17 08:00 09/23/17 08:00 09/23/17 08:00 09/23/17 08:00 09/23/17 08:00 Laboratory Results 09/22/17 05:35 09/22/17 05:35 09/22/17 09/23/17 09/24/17 05:59 05:59 05:59 Intake Total 1540 400 775 Output Total 1500 2175 300 Balance 40 -1775 475 PT 15.3 SEC (12.0-15.0) H 09/20/17 09:42 INR 1.19 (0.83-1.16) H 09/20/17 09:42 ICD10 Worksheet Patient Problems: Problems Problem Status Onset Abnormal EKG Acute Anemia Acute Diabetic infection of left foot Acute Elevated troponin Acute Foot infection Acute Encephalopathy acute Acute
--- NOTE | 2017-09-23 13:53 | ASMTCMCOM ---
CM Note CM Note Notes: Discussed pt case in rounds this AM. Sister and Kimmy VAUGHN, present. Plan is for pt to have AKA or BKA this week per surgeon note. Anticipate return to [facility] where pt has been residing when medically ready. Date Signed: 09/23/2017 01:52 PM Electronically Signed By:Dahiana Riley RN
--- NOTE | 2017-09-23 16:46 | GCON ---
[f rep st] ORTHOPAEDIC CONSULTATION DATE OF CONSULTATION: 09/23/2017 REQUESTION PHYSICIAN: Bhupinder Henriquez MD General Surgery CHIEF COMPLAINT: Infected left foot and lower leg. HISTORY OF PRESENT ILLNESS: A 62-year-old right-hand dominant male who had had a history of MRSA left lower extremity infections including a right chronic foot ulcer, associated with uncontrolled diabetes. The patient was recently admitted to [facility] while under the care as an outpatient of Dr. Abbott and Dr. Henriquez, of the general surgery team. The patient has been treated with wound vacs in the past, as well as IV antibiotics including vancomycin. At this point, he was being admitted for elevated troponins and worsening infection in the left lower extremity. The patient is a very poor historian given a history of TBI and stroke. However, his medical power of estate attorney, sister Kimmy, is with him and provides additional information. Please see other history and physical, as well as consult notes for additional information. PAST MEDICAL HISTORY: 1. History of MRSA LLE. 2. Uncontrolled diabetes. 3. PVD. 4. Stable CAD. 5. History of traumatic brain injury and stroke. 6. Hypertension. 7. Right foot ulcers. 8. Dementia. 9. History of prior sacral and coccygeal decubitus ulcers. PAST SURGICAL HISTORY: ORIF left tibial plateau on 09/07/2010, in [place], [place]. He has had multiple prior foot surgeries, left greater than right, with ray resections and amputations, as well as an ulcer and excision most recently on 08/02/2017. No other stated history. MEDICATIONS: Home medications include Percocet, MS Contin, Dakin dressing changes, Lyrica, melatonin, ISS, insulin 70/30, 25 units at bedtime, 45 units daily, Pepcid, doxycycline, docusate, Plavix 75 mg daily, atorvastatin 40 mg daily, atenolol 500 mg daily, baby aspirin daily, and Augmentin. ALLERGIES: NKDA. SOCIAL HISTORY: His half-sister, Kimmy, is his medical power of estate attorney and she is accompanying him currently. He normally lives at [facility]. 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 He denies any current use of tobacco, alcohol, or drugs. FAMILY HISTORY: Uterine cancer, depression, and diabetes in his half-sister. Both parents when the children were in there very young years, i.e., 4-6 years of age and therefore much of the family history is unknown. REVIEW OF SYSTEMS: 10-point review is performed without any other significant abnormal findings or history other than that noted in his history above. PHYSICAL EXAM: VITAL SIGNS: As of today are, he has been afebrile throughout his admission, most recent blood pressure is 157/83, heart rate 66, respiratory rate 14, saturating at 93% on room air. GENERAL: NAD, cooperative, pleasant. HEENT: NC/AT, EOMI, PERRLA, ears and nares patent without discharge. Oropharynx clear. NECK: NTTP, firm, supple. Negative Lhermitte's and Spurling 's. No LAD. Trachea midline. MUSCULOSKELETAL: Left lower extremity is notable for multiple chronic wounds over the fore and midfoot. There are dressings in place that can be moved out of the way to show signs consistent with chronic infection. There is a chevron appearing area of cellulitis up along the anterior tibial crest to the level of approximately 8-10 cm inferior to the tibial tubercle. No palpable subcutaneous gas, compartments soft throughout. Skin intact. There are lateral incisions consistent with prior surgery and placement of the large plate that was seen on prior x-rays. The patient has no significant plantar sensation of the foot. He is able to wiggle his toes and foot. Knee ROM 0-120. Ligaments are stable to varus and valgus stress at 0 and 30 degrees. Negative PD and AD. There is no significant JLT. No ecchymosis, erythema, calor or edema. No effusion. Both calves are tender with positive Homans on the right, equivocal on the left and limited by the patient's significant pain. Otherwise, grossly DNVI BLE. SKIN: Please see dictation above. There is cellulitis on the anterior tibial crest region that is without any bulla or subcutaneous gas. No palpable fluid collections. There is mild calor, mild edema. No ecchymosis throughout the lower extremity. There are multiple ulcers over both feet. NEUROLOGIC: Nonfocal, no deficits noted other than his chronic decreased sensation consistent with diabetic neuropathy, as well as PVD. C5-T1 and L2 through S1 are intact. DTRs are grade 1+ bilateral upper and lower extremities, symmetric. No clonus. PSYCH: Alert orient x2. Appropriate mood and affect. His overall exam today is consistent with some dementia and/or history of TBI. RADIOGRAPHS: Plain films of the left lower extremity show a large lateral tibial plateau plate, extending distally to the distal 1/3 of tibia. This is consistent with a Combi locking plate from [employer]. No obvious fracture or dislocation. There is obvious varus deformity and HO on radiographs, unable to determine if the plate is covered by HO. No signs of obvious periprosthetic osteolysis or other deep chronic osteomyelitis. IMPRESSION: Left lower extremity with chronic F&A ulcers and infection in need of amputation and large tibial plateau plate at the level of below-knee amputation. PLAN: The patient's diagnoses and/or treatment options have been outlined for him and his sister today. I also spent considerable time discussing this with Bhupinder Henriquez MD. At this point, we agree we would like to proceed with BKA over AKA. Given the cellulitis in the anterior portion of the leg, there is some concern that the plate may be infected more proximally, which would potentially cause more complicated healing for his BKA. I would recommend we proceed with attempted HWR, in concert with kitty STEPHENSON and if this proves to be grossly infected or if cultures are abnormal, then the amputation should be revised and formalized vs proximal extension to above the knee, i.e., AKA. In the meantime, continue with his current medical and surgical care. I appreciate the opportunity to assist in the care of this patient. Please call with any questions. /[id number]/MODL MTDD
--- NOTE | 2017-09-23 16:50 | HOSPPROG ---
Hospitalist Progress Note Assessment/Plan: * Foot infection -IV vanco, IV zosyn -amputation later this week -may need AKA if hardware can't be removed * EKG changes - new compared with previous EKG -stress test abnormal - cardiology to consult -borderline troponin elevation - suspect stress of sepsis * PVD -ASA, Plavix, lipitor * DM II -insulin 70/30 - previous home dose 110 u am, 90 u pm -titrate insulin * Dementia/TBI/NH resident * Chronic pain with continuous narcotic dependency -MS contin Subjective: No new complaints. Objective: Vital Signs Temp Pulse Resp BP Pulse Ox 36.8 C 66 14 157/83 H 93 09/23/17 12:00 09/23/17 12:00 09/23/17 12:00 09/23/17 12:00 09/23/17 12:00 Laboratory Results 09/22/17 05:35 09/22/17 05:35 09/22/17 09/23/17 09/24/17 05:59 05:59 05:59 Intake Total 1540 400 775 Output Total 1500 2175 700 Balance 40 -1775 75 PT 15.3 SEC (12.0-15.0) H 09/20/17 09:42 INR 1.19 (0.83-1.16) H 09/20/17 09:42 EKG viewed, my personal interpretation is - anterior TWI persists d/w Dr. Sanches - cards to consult in am - Physical Exam Constitutional: no apparent distress, appears nourished, not in pain Cardiovascular: regular rate and rhythym, no murmur, rub, or gallop Respiratory: no respiratory distress, no rales or rhonchi, clear to auscultation Gastrointestinal: normoactive bowel sounds, soft, non-tender abdomen, no palpable masses Skin: no rashes or abrasions, no fluctuance, no induration Neurologic: AAOx3, sensation intact bilaterally Psychiatric: interacting appropriately, not anxious, not encephalopathic, thought process linear ICD10 Worksheet Patient Problems: Problems Problem Status Onset Abnormal EKG Acute Anemia Acute Diabetic infection of left foot Acute Elevated troponin Acute Foot infection Acute Encephalopathy acute Acute
[2017-09-23] MEDS: ACETAMINOPHEN 325 MG TAB PO PRN (18:12)
--- NOTE | 2017-09-23 18:35 | PCMIDPN ---
Assessment/Plan: Assessment/Plan: * Recurrent left lower extremity cellulitis and chronic non-healing wounds: Cellulitic element stabilized with vancomycin and Zosyn. Ongoing decision making via Orthopedic surgery and General surgery regarding level of amputation which will be necessary for definitive therapy. Continue vancomycin and Zosyn as patient has prior history of MRSA and with significant healthcare contact at risk for other pathogens including Gram-negative lambert/anaerobes, particularly with chronic wounds. Follow creatinine and vancomycin levels over time. 09/23/17 18:32 09/23/17 18:37 Subjective: Patient without specific complaints. Orthopedic surgery evaluated earlier today given presence of lower extremity hardware. Objective: Vital Signs Temp Pulse Resp BP Pulse Ox 36.8 C 70 18 139/64 H 92 09/23/17 16:00 09/23/17 16:00 09/23/17 16:00 09/23/17 16:00 09/23/17 16:00 Laboratory Results 09/22/17 05:35 09/22/17 05:35 09/22/17 09/23/17 09/24/17 05:59 05:59 05:59 Intake Total 1397 540 0780 Output Total 1500 2175 1100 Balance 40 -1775 525 Vancomycin # 4 Zosyn # 4 Laboratory Tests 09/22/17 15:00 Vancomycin Trough 12.2 - Physical Exam General Appearance: alert, no apparent distress EENT: No scleral icterus, No thrush Extremities: inflammation (Left lower extremity with faint erythema over mid aviles; black eschar present over heel; open wound over lateral aspect of foot with some granulation and slough) Abdomen: non-tender, No distended ICD10 Worksheet Patient Problems: Problems Problem Status Onset Abnormal EKG Acute Anemia Acute Diabetic infection of left foot Acute Elevated troponin Acute Foot infection Acute Encephalopathy acute Acute
[2017-09-23] MEDS: ATORVASTATIN CALCIUM 40 MG TAB PO SCH (22:05)
[2017-09-23] MEDS: INSULIN 70/30 HUMAN 100 UNIT/ML SYR SC SCH (22:12)
[2017-09-24] MEDS: PIPERACILLIN/TAZO 3.375 GM/DEX 50 ML IV SCH ×4 (00:45→18:23)
[2017-09-24] MEDS: VANCOMYCIN 1.5 GM in NS 250 ML IV SCH ×2 (04:05→14:48)
[2017-09-24] MEDS ORDERED: ALTEPLASE 2 MG VIAL IVP PRN (05:47)
[2017-09-24] MEDS: SODIUM HYPOCHLORITE (DAKINS 1/4 STR) 120 ML BTL TP SCH ×2 (06:02→14:48)
[2017-09-24] MEDS: ATENOLOL 50 MG TAB PO SCH ×2 (09:19→21:38)
[2017-09-24] MEDS: SENNOSIDES/DOCUSATE SODIUM TAB PO SCH ×2 (09:19→21:38)
[2017-09-24] MEDS: CLOPIDOGREL BISULFATE 75 MG TAB PO SCH (09:20)
[2017-09-24] MEDS: ASPIRIN 81 MG CHEWABLE TAB PO SCH (09:20)
[2017-09-24] MEDS: INSULIN LISPRO 100 UNIT/ML SC SCH ×3 (09:20→18:22)
[2017-09-24] MEDS: FAMOTIDINE 20 MG TAB PO SCH ×2 (09:20→21:38)
[2017-09-24] MEDS: morphINE SR 30 MG TAB PO SCH ×2 (09:20→21:38)
[2017-09-24] MEDS: morphINE SR 15 MG TAB PO SCH ×2 (09:20→21:39)
[2017-09-24] MEDS: PREGABALIN 75 MG CAP PO SCH ×3 (09:20→21:38)
[2017-09-24] MEDS: INSULIN 70/30 HUMAN 100 UNIT/ML SYR SC SCH ×2 (09:21→21:43)
[2017-09-24] MEDS: ENOXAPARIN 40 MG/0.4 ML SYR SC SCH (09:21)
[2017-09-24] MEDS ORDERED: LIDOCAINE 1% 300 MG/30 ML SDV ONE (10:59)
[2017-09-24 12:15] LABS: PLATELET COUNT 353 10^3/uL (150-400)
--- NOTE | 2017-09-24 15:41 | PDCARCONS ---
Cardiology Consult Reason for Consult: Pre operative cardiac "clearance" Chief Complaint: No cardiovascular complaints at present Requesting Physician: hospitalist team History of Present Illness: Patient is a 62 y/o male with history of poorly controlled DM (uncertain on A1C when last checked, but random glucose was noted to be 120-300), PVD, dementia, TBI, CAD (reportedly), CVA, HTN, and MRSA to LLE with non healing heal/food infection, with pending need for amputation given the ongoing, non healing nature of the LLE infection. Patient reportedly had "chest pains" about one week ago at another hospital facility, but denies these complaints at present. No PND or orthopnea. Minimal discomfort to the left lower extremity (suspect diabetic neuropathy). No complaints of dyspnea or dizziness. Stress testing was recently performed, and the quality of the study was poor (they were unable to comment on the inferior wall, and felt - even with this lack of information - that the ejection fraction was 30%). Echocardiogram from 09-20-17 with both "preserved left ventricular systolic function" and "cannot comment on LVEF or wall motion" reported. I reviewed the echocardiogram, and agree with an inability to report wall motion specifically, but overall systolic function appeared grossly normal. Patient with need to have surgery. Extent of the amputation is unknown - will be something that is determined as the surgery progresses, and viable tissue is delineated. Surgery is scheduled for . Remainder of the 12 point review of systems was unremarkable. History Information - Allergies/Home Medication List Allergies/Adverse Reactions: No Known Allergies Allergy (Unverified 05/28/13 09:29) Home Medications: Aspirin [Aspirin 81mg (*)] 81 mg PO DAILY 08/23/17 [Last Taken Unknown] Atorvastatin Calcium [Lipitor 40 mg (*)] 40 mg PO HS 08/23/17 [Last Taken ] Clopidogrel Bisulfate [Plavix (*)] 75 mg PO DAILY 08/23/17 [Last Taken Unknown] Docusate Sodium [Colace 100 MG (*)] 100 mg PO DAILY PRN 08/23/17 [Last Taken Unknown] Melatonin [Melatonin 3 MG (*)] 3 mg PO HS PRN 08/24/17 [Last Taken Unknown] morphINE SR [MS Contin/Oramorph SR 30 mg (*)] 30 mg PO BID 08/24/17 [Last Taken 09/19/17 20:00] morphINE SR [Ms Contin/Oramorph 15 mg (*)] 15 mg PO BID 08/24/17 [Last Taken 08/08 20:00] Amoxicillin/Clavulanate Pot [Augmentin 875 MG TAB (*)] 875 mg PO BID 09/20/17 [ Last Taken 09/19/17 20:00] Doxycycline Hyclate [Vibramycin 100 MG (*)] 100 mg PO BID 09/20/17 [Last Taken 09/19/17 20:00] Famotidine [Pepcid 20 MG (*)] 20 mg PO BID 09/20/17 [Last Taken 09/19/17 17:00] Insulin 70/30 Human [HumuLIN 70/30 SYRINGE] 25 unit SC HS 09/20/17 [Last Taken 09/19/17] Insulin 70/30 Human [HumuLIN 70/30 SYRINGE] 45 unit SC DAILY 09/20/17 [Last Taken Unknown] Insulin Regular Human [HumuLIN R] 0 unit SC ACHS 09/20/17 [Last Taken 09/19/17 20:00 6 units] Pregabalin [Lyrica 75mg (*)] 75 mg PO TID@08,17,20 09/20/17 [Last Taken 20:00] Sodium Hypochlorite [Dakins 1/4 Strength] 60 ml TP BID@06,14 09/20/17 [Last Taken Unknown] oxyCODONE HCL/ACETAMINOPHEN [Percocet 7.5-325 mg Tablet] 1 - 2 each PO Q6HRS PRN 09/20/17 [Last Taken Unknown] I have personally reviewed and updated: family history, medical history, social history, surgical history Past Medical History: - Past Medical History coronary artery disease, CVA, dementia, diabetes type 2, hypertension, peripheral artery disease Additional medical history: Traumtic brain injury - Surgical History Reports: amputation - Family History Positive for: non-pertinent - Social History Smoking Status: Former smoker Alcohol Use: None Drug Use: None Cardiac History - Cardiac History Past Cardiac History: CAD Cardiac Risk Factors: hypertension (>140/90), diabetes mellitus, family history of premature CAD, male Timing/Duration: Intermittent Severity: moderate Severity Scale: 4 Location: substernal Activities at Onset: activity Modifying Factors: improves with: oxygen, rest NINA Risk Evaluation age greater or equal to 65: no greater or equal to 3 CAD risk factors: yes known CAD(stenosis greater or eqaul to 50%): no ASA use in past 7 days: no severe angina(greater or equal to 2 episodes in 24hrs): no EKG ST changes greater or equal to 0.5mm: no positive cardiac marker: yes Total Score: 2 NINA Score: 8.3% risk Physical Exam Physical Exam: Temp Pulse Resp BP Pulse Ox 36.8 C 65 14 169/79 H 90 L 09/24/17 15:32 09/24/17 15:32 09/24/17 15:32 09/24/17 15:32 09/24/17 15:32 O2 (L/minute) 1 Constitutional: no apparent distress, appears nourished, not in pain, chronically ill appearing, obese Eyes: PERRL Ears, Nose, Mouth, Throat: moist mucous membranes Cardiovascular: regular rate and rhythym, no murmur, rub, or gallop, other ( absent LLE pulses; severely diminished RLE pulses), No JVD Respiratory: no respiratory distress Gastrointestinal: normoactive bowel sounds Skin: warm, mottled, erythema Musculoskeletal: generalized weakness Neurologic: AAOx3, sensation intact bilaterally, weakness Psychiatric: interacting appropriately, poor insight Lab and Imaging 09/24/17 12:00 09/24/17 12:00 WBC 10.06 10^3/uL (3.80-9.50) H 09/24/17 12:00 RBC 3.80 10^6/uL (4.40-6.38) L 09/24/17 12:00 Hgb 9.4 g/dL (13.7-17.5) L 09/24/17 12:00 Hct 30.2 % (40.0-51.0) L 09/24/17 12:00 MCV 79.5 fL (81.5-99.8) L 09/24/17 12:00 MCH 24.7 pg (27.9-34.1) L 09/24/17 12:00 MCHC 31.1 g/dL (32.4-36.7) L 09/24/17 12:00 RDW 16.9 % (11.5-15.2) H 09/24/17 12:00 Plt Count 353 10^3/uL (150-400) 09/24/17 12:00 MPV 8.5 fL (8.7-11.7) L 09/24/17 12:00 Neut % (Auto) 72.8 % (39.3-74.2) 09/24/17 12:00 Lymph % (Auto) 16.4 % (15.0-45.0) 09/24/17 12:00 Morrison % (Auto) 6.2 % (4.5-13.0) 09/24/17 12:00 Eos % (Auto) 3.3 % (0.6-7.6) 09/24/17 12:00 Baso % (Auto) 0.6 % (0.3-1.7) 09/24/17 12:00 Nucleat RBC Rel Count 0.0 % (0.0-0.2) 09/24/17 12:00 Absolute Neuts (auto) 7.33 10^3/uL (1.70-6.50) H 09/24/17 12:00 Absolute Lymphs (auto) 1.65 10^3/uL (1.00-3.00) 09/24/17 12:00 Absolute Monos (auto) 0.62 10^3/uL (0.30-0.80) 09/24/17 12:00 Absolute Eos (auto) 0.33 10^3/uL (0.03-0.40) 09/24/17 12:00 Absolute Basos (auto) 0.06 10^3/uL (0.02-0.10) 09/24/17 12:00 Absolute Nucleated RBC 0.00 10^3/uL (0-0.01) 09/24/17 12:00 Immature Gran % 0.7 % (0.0-1.1) 09/24/17 12:00 Immature Gran # 0.07 10^3/uL (0.00-0.10) 09/24/17 12:00 PT 15.3 SEC (12.0-15.0) H 09/20/17 09:42 INR 1.19 (0.83-1.16) H 09/20/17 09:42 APTT 31.9 SEC (23.0-38.0) 09/20/17 09:42 D-Dimer 2.29 ug/mLFEU (0.00-0.50) H 09/22/17 05:35 VBG Lactic Acid 1.2 mmol/L (0.7-2.1) 09/20/17 09:42 Sodium 140 mEq/L (135-145) 09/24/17 12:00 Potassium 4.1 mEq/L (3.5-5.2) 09/24/17 12:00 Chloride 103 mEq/L (97-110) 09/24/17 12:00 Carbon Dioxide 28 mEq/l (22-31) 09/24/17 12:00 Anion Gap 9 mEq/L (8-16) 09/24/17 12:00 BUN 10 mg/dL (7-23) 09/24/17 12:00 Creatinine 0.6 mg/dL (0.7-1.3) L 09/24/17 12:00 Estimated GFR > 60 09/24/17 12:00 Glucose 131 mg/dL (70-100) H 09/24/17 12:00 POC Glucose 124 mg/dL (70-100) H 09/24/17 13:02 Calcium 8.5 mg/dL (8.5-10.4) 09/24/17 12:00 Total Bilirubin 0.6 mg/dL (0.1-1.4) 09/21/17 05:55 Conjugated Bilirubin 0.4 mg/dL (0.0-0.5) 09/20/17 09:42 Unconjugated Bilirubin 0.5 mg/dL (0.0-1.1) 09/20/17 09:42 AST 24 IU/L (17-59) 09/21/17 05:55 ALT 41 IU/L (21-72) 09/21/17 05:55 Alkaline Phosphatase 124 IU/L (38-126) 09/21/17 05:55 Troponin I 0.734 ng/mL (0.000-0.034) H 09/20/17 14:45 NT-Pro-B Natriuret Pep 6090 pg/mL (0-125) H 09/20/17 09:42 Total Protein 5.5 g/dL (6.3-8.2) L 09/21/17 05:55 Albumin 2.5 g/dL (3.5-5.0) L 09/21/17 05:55 Lipase 25 IU/L (23-300) 09/20/17 09:42 Vancomycin Trough 12.2 mcg/mL (5.0-20.0) 09/22/17 15:00 Visualized and Interpreted Chest x-ray results: Yes Chest X-ray Interpretation: no infiltrate, normal heart size Visualized and Interpreted EKG results: Yes EKG Interpretation: Positive for: normal sinsus rhythm, NS ST wave abnormalities , T waves inversion Echocardiogram: limited echo with very poor windows A/P Assessment: Patient is a 62 y/o male with history of CAD (unspecified), with stress testing (and very inconclusive results), with PVD, dementia, CVA, TBI, HTN, and MRSA to LLE with ongoing necrosis and pending need for amputation. The location of the amputation remains to be determined (will be assessed at the time of the surgery ). Echocardiogram was performed, but echo windows were very poor (grossly normal appearance to LVEF, but wall motion could not be commented on). No active cardiovascular complaints. Troponin with mild elevation noted several days ago (repeat assessment is pending). No PND or orthopnea. No dyspnea or dizziness. Patient was NPO today for possible angiogram. Plan: Would repeat echo and use definity to assist with clear assessment of left ventricular systolic ejection fraction and some idea about wall motion. Would also reassess troponin levels to determine if normalization has been appreciated , or continued elevation is noted. The patient is a high risk for any surgery given comorbidities. Angiography remains an option, but there are risks to this procedure as well. If the patient is noted to have triple vessel disease, sending him for CABG prior to foot operation (with active infection) is not a viable option. At present, the patient is without cardiovascular symptoms. One argument is that the patient, with poorly controlled DM, might not ever have "chest pains" or pressure. Would pursue non invasive testing (echo) and labs (troponin) to determine if further CV testing is merited. If the foot/ankle is not amputated, the risk for is very elevated given the recent past history (septic admission to [facility]) and ongoing, non healing (and progressive) involvement of the LLE. It should be clearly started that there is a high risk for this patient to have any surgical procedure, but without surgery there is also, a high risk for morbidity and mortality. Will await the recommended testing and provide further recommendations. Would maintain current medical therapy as at present (specifically, aggressive management of DM and HTN).
--- NOTE | 2017-09-24 19:06 | HOSPPROG ---
Hospitalist Progress Note Assessment/Plan: * Foot infection - probable osteo -IV vanco, IV zosyn -amputation -ortho to attempt hardware removal for BKA -if unsuccessful then AKA * EKG changes - new compared with previous EKG -stress test abnormal - appreciate cardiology consult -repeat trop and ECHO -high risk for surgery, but cardiac cath not felt to alter that risk -amputation is medically necessary in an urgent manner * PVD -ASA, Plavix, lipitor * DM II -insulin 70/30 - previous home dose 110 u am, 90 u pm -titrate insulin * Dementia/TBI/NH resident * Chronic pain with continuous narcotic dependency -MS contin Subjective: No new complaints. Objective: Vital Signs Temp Pulse Resp BP Pulse Ox 36.8 C 65 14 169/79 H 93 09/24/17 15:32 09/24/17 15:32 09/24/17 15:32 09/24/17 15:32 09/24/17 16:46 Laboratory Results 09/24/17 12:00 09/24/17 12:00 09/23/17 09/24/17 09/25/17 05:59 05:59 05:59 Intake Total 400 2250 1170 Output Total 2175 2850 800 Balance -1775 -600 370 PT 15.3 SEC (12.0-15.0) H 09/20/17 09:42 INR 1.19 (0.83-1.16) H 09/20/17 09:42 case d/w Dr Vidales - high risk for CV complication with surgery, but surgery is necessary and not elective. Not sure cardiac cath would alter that risk. Tib/fib xray - hardware in place - Physical Exam Constitutional: no apparent distress, appears nourished, not in pain Cardiovascular: regular rate and rhythym, no murmur, rub, or gallop Respiratory: no respiratory distress, no rales or rhonchi, clear to auscultation Gastrointestinal: normoactive bowel sounds, soft, non-tender abdomen, no palpable masses Skin: no rashes or abrasions, no fluctuance, no induration Neurologic: AAOx3, sensation intact bilaterally Psychiatric: interacting appropriately, thought process linear, No encephalopathic, No anxious, No agitated ICD10 Worksheet Patient Problems: Problems Problem Status Onset Abnormal EKG Acute Anemia Acute Diabetic infection of left foot Acute Elevated troponin Acute Foot infection Acute Encephalopathy acute Acute
[2017-09-24] MEDS: ATORVASTATIN CALCIUM 40 MG TAB PO SCH (21:38)
[2017-09-25] MEDS: PIPERACILLIN/TAZO 3.375 GM/DEX 50 ML IV SCH ×5 (01:06→23:55)
[2017-09-25 03:11] LABS: PLATELET COUNT 357 10^3/uL (150-400)
[2017-09-25] MEDS: VANCOMYCIN 1.5 GM in NS 250 ML IV SCH ×2 (04:06→15:04)
[2017-09-25] MEDS: SODIUM HYPOCHLORITE (DAKINS 1/4 STR) 120 ML BTL TP SCH ×2 (06:15→13:33)
[2017-09-25] MEDS: morphINE SR 30 MG TAB PO SCH ×2 (08:46→21:52)
[2017-09-25] MEDS: SENNOSIDES/DOCUSATE SODIUM TAB PO SCH ×2 (08:46→20:32)
[2017-09-25] MEDS: morphINE SR 15 MG TAB PO SCH ×2 (08:46→21:52)
[2017-09-25] MEDS: INSULIN 70/30 HUMAN 100 UNIT/ML SYR SC SCH ×2 (08:46→23:50)
[2017-09-25] MEDS: PREGABALIN 75 MG CAP PO SCH ×3 (08:46→20:31)
[2017-09-25] MEDS: FAMOTIDINE 20 MG TAB PO SCH ×2 (08:47→20:32)
[2017-09-25] MEDS: ATENOLOL 50 MG TAB PO SCH ×2 (08:47→20:31)
[2017-09-25] MEDS: INSULIN LISPRO 100 UNIT/ML SC SCH ×3 (08:59→18:10)
--- NOTE | 2017-09-25 10:36 | PDCARPN ---
Cardiology Progress Note Chief Complaint: No cardiovascular complaints Assessment/Plan: Assessment: 09-25-17 Overall, patient has been doing well. No active cardiovascular complaints. No chest pains or pressure. No PND or orthopnea. Family was present in the room with the patient. Echocardiogram with contrast (to better visualize the LV wall motion and systolic function) is pending later today. Patient is scheduled for surgery tomorrow. 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 Patient reportedly had "chest pains" about one week ago at another hospital facility, but denies these complaints at present. No PND or orthopnea. Minimal discomfort to the left lower extremity (suspect diabetic neuropathy). No complaints of dyspnea or dizziness. Stress testing was recently performed, and the quality of the study was poor (they were unable to comment on the inferior wall, and felt - even with this lack of information - that the ejection fraction was 30%). Echocardiogram from 09-20-17 with both "preserved left ventricular systolic function" and "cannot comment on LVEF or wall motion" reported. I reviewed the echocardiogram, and agree with an inability to report wall motion specifically, but overall systolic function appeared grossly normal. Patient with need to have surgery. Extent of the amputation is unknown - will be something that is determined as the surgery progresses, and viable tissue is delineated. Surgery is scheduled for . Plan: (1) Will read echo today to have better idea on the patient's systolic function (2) Would continue therapy on IV antibiotics (3) Anticoagulants are on hold with pending surgery - would resume ASA in particular when surgery is allowing (4) Aggressive DM therapy should continue (5) Statins to continue with annual assessment of cholesterol and LFTs (6) Atenolol should continue (CV risk reduction is noted with this therapy) (7) At present, no indication for invasive cardiovascular testing (8) Would consider reassessment of CAD burden post surgery (six weeks) if possible or desired by the patient Subjective: No cardiovascular complaints Reviewed/Discussed With: family, hospitalist, multidisciplinary team Objective: Vital Signs (8 Hrs) Temp Pulse Resp BP Pulse Ox 09/25/17 08:00 36.3 C 68 15 181/87 H 90 L Intake/Output (24 Hrs) 09/24/17 09/25/17 09/26/17 05:59 05:59 05:59 Intake Total 2250 1270 Output Total 2850 3300 Balance -600 -2029 Intake: Oral (ml) 800 900 IV Intake (ml) 250 IV Infused (ml) 1200 370 Piperacillin/Tazo 3.375 450 120 gm/Dex 50 ml @ 100 mls/hr IV Q6HRS [facility] Rx#: [id number] Vancomycin 1.5 gm In Ns 750 250 250 ml @ 166.667 mls/hr IV BID@0300,1500 [facility] Rx#: [id number] Output: Urine (ml) 2850 3300 Catheter 2850 3300 Other: Number of Stools Catheter 1 Result Diagrams: 09/25/17 02:50 09/24/17 12:00 Cardiac Labs: Cardiac Lab Results (72 Hrs) 09/24/17 17:00 Troponin I 0.145 H Telemetry: Normal sinus rhythm with rate of 70 bpm - Physical Exam Constitutional: WDWN, no apparent distress, obese Eyes: PERRL, EOMI Ears, Nose, Mouth, Throat: moist mucous membranes Cardiovascular: regular rate and rhythm, no murmurs, no rubs, no gallops, pulses symmetric bilat (to upper extremities (lower extremities - LLE in particular - without palpable pulses).), No jugular vein distention Peripheral Pulses: 2+: dorsalis-pedis (R), dorsalis-pedis (L) Respiratory: clear to auscultate bilat, no crackles Gastrointestinal: normoactive bowel sounds Skin: warm, erythema, induration, pressure ulcer, rash Musculoskeletal: no muscular tenderness Neurologic: AAOx3, CN II-XII grossly intact Psychiatric: cooperative, interactive, following commands, encephalopathic ICD10 Worksheet Patient Problems: Problems Problem Status Onset Abnormal EKG Acute Anemia Acute Diabetic infection of left foot Acute Elevated troponin Acute Foot infection Acute Encephalopathy acute Acute
[2017-09-25] MEDS ORDERED: PERFLUTREN LIPID MICROSPHERES 1.1 MG/ML VIAL IV ONE (13:04)
--- NOTE | 2017-09-25 15:23 | HOSPPROG ---
Hospitalist Progress Note Assessment/Plan: * Foot infection - probable osteo -IV vanco, IV zosyn -amputation (tomorrow) -ortho to attempt hardware removal for BKA -if unsuccessful then AKA * EKG changes - new compared with previous EKG -stress test abnormal - appreciate cardiology consult -repeat trop and ECHO -high risk for surgery, but cardiac cath not felt to alter that risk -amputation is medically necessary in an urgent manner * PVD -ASA, Plavix, lipitor * DM II -insulin 70/30 - previous home dose 110 u am, 90 u pm -titrate insulin -will monitor glucose given he will be NPO at midnight * Dementia/TBI/NH resident * Chronic pain with continuous narcotic dependency -MS contin * HTN: was elevated earlier, but most recent BP 120's systolic. NO changes for now -Cont Atenolol Subjective: no complaints. elevated BP earlier. now better this afternoon. Objective: Vital Signs Temp Pulse Resp BP Pulse Ox 36.9 C 68 15 164/63 H 91 L 09/25/17 15:13 09/25/17 15:13 09/25/17 15:13 09/25/17 15:13 09/25/17 15:13 Laboratory Results 09/25/17 02:50 09/24/17 12:00 09/24/17 09/25/17 09/26/17 05:59 05:59 05:59 Intake Total 2250 1270 Output Total 2850 3300 550 Balance -600 -2030 -550 PT 15.3 SEC (12.0-15.0) H 09/20/17 09:42 INR 1.19 (0.83-1.16) H 09/20/17 09:42 - Physical Exam Constitutional: no apparent distress Eyes: PERRL Ears, Nose, Mouth, Throat: moist mucous membranes Cardiovascular: regular rate and rhythym Respiratory: no respiratory distress, no rales or rhonchi, clear to auscultation Gastrointestinal: normoactive bowel sounds, soft, non-tender abdomen Skin: warm Neurologic: AAOx3 Psychiatric: interacting appropriately, encephalopathic Lymph, Heme, Immunologic: No petechiae ICD10 Worksheet Patient Problems: Problems Problem Status Onset Abnormal EKG Acute Anemia Acute Diabetic infection of left foot Acute Elevated troponin Acute Foot infection Acute Encephalopathy acute Acute
--- NOTE | 2017-09-25 15:30 | ASMTCMCOM ---
CM Note CM Note Notes: Pts case reviewed in tx rounds. CM spoke w/ Dr. Henriquez regarding d/c POC. Pt will most likely need an LTAC. CM met w/ sister and pt for dispo planning. CM provided LTAC facilities to Kimmy and Kimmy will look into them. CM will hold off on making referrals until surgery. CM to follow. Plan: LTAC Date Signed: 09/25/2017 03:29 PM Electronically Signed By:MIKA Salas
--- NOTE | 2017-09-25 17:30 | ECHO ---
[email or web address] [place] [id number] Main: [phone] Fax: Transthoracic Echocardiogram Name: TAM KERR MR#: [id number] Study Date: 09/25/2017 Study Time: 01:17 PM Date of : 1955 Age: 62 year(s) Height: ( ) Weight: ( ) BSA: Gender: Male Examination: Limited Echo with Definity Indication: Eval LV Fx Image Quality: Contrast: Requested by: Kamari Vidales BP: 181 mmHg/87 mmHg Heart Rate: Rhythm: Indication: Eval LV Fx Procedure Staff Manager Maintenance: David Strange RDCS Reading Physician: Kamari Vidales MD Requesting Provider: Conclusions: This is a limited echo using Definity imaging enhancement. Not all segments could be visualized but overall EF is estimated at 45-50% There is basilar inferoseptal hypokinesis. .495 mg of Definity was administered.. Measurements: Chambers Valvular Assessment AV/MV Valvular Assessment TV/PV Normal Normal Normal Name Value Range Name Value Range Name Value Range Continued Measurements: Findings: Exam Comments: This is a limited echo using Definity imaging enhancement. Not all segments could be visualized but overall EF is estimated at 45-50% There is basilar inferoseptal hypokinesis. .495 mg of Definity was administered.. (No Signature Object) Patient: TAM KERR Study Date: 09/25/2017 Page 1 of 1 01:17 PM [id number]
[2017-09-25] MEDS: ATORVASTATIN CALCIUM 40 MG TAB PO SCH (20:32)
--- NOTE | 2017-09-25 20:44 | PCMIDPN ---
Assessment/Plan: Assessment/Plan: * Recurrent left lower extremity cellulitis and chronic non-healing wounds: Stable clinical findings with antibiotic therapy. Plans for amputation tomorrow with ultimate decision regarding BKA versus AKA based on operative findings and hardware assessment. Continue vancomycin and Zosyn. Post amputation, do not anticipate prolonged course of IV antibiotics unless any concerns about residual infection at level of amputation. 09/25/17 20:42 Subjective: Patient without specific complaints. Plans for surgery tomorrow. No diarrhea with antibiotics. Objective: Vital Signs Temp Pulse Resp BP Pulse Ox 36.9 C 68 15 164/63 H 91 L 09/25/17 15:13 09/25/17 15:13 09/25/17 15:13 09/25/17 15:13 09/25/17 15:13 Laboratory Results 09/25/17 02:50 09/24/17 12:00 09/24/17 09/25/17 09/26/17 05:59 05:59 05:59 Intake Total 2250 1270 980 Output Total 2850 3300 850 Balance -600 -2030 130 Vancomycin # 6, Zosyn # 6 Laboratory Tests 09/24/17 09/25/17 12:00 02:50 Creatinine 0.6 L Vancomycin Trough 12.9 - Physical Exam General Appearance: alert, no apparent distress EENT: No scleral icterus, No thrush Extremities: inflammation (Cellulitic area over anterior aviles without interval change; lower foot dressed) Abdomen: non-tender, No distended ICD10 Worksheet Patient Problems: Problems Problem Status Onset Abnormal EKG Acute Anemia Acute Diabetic infection of left foot Acute Elevated troponin Acute Foot infection Acute Encephalopathy acute Acute
[2017-09-26] MEDS: VANCOMYCIN 1.5 GM in NS 250 ML IV SCH ×2 (04:21→16:30)
[2017-09-26 04:58] LABS: PLATELET COUNT 342 10^3/uL (150-400)
[2017-09-26] MEDS: PIPERACILLIN/TAZO 3.375 GM/DEX 50 ML IV SCH ×3 (06:32→18:50)
[2017-09-26] MEDS: SODIUM HYPOCHLORITE (DAKINS 1/4 STR) 120 ML BTL TP SCH (06:33)
[2017-09-26] MEDS ORDERED: INSULIN 70/30 HUMAN 100 UNIT/ML SYR SC SCH (09:00)
[2017-09-26] MEDS: FAMOTIDINE 20 MG TAB PO SCH ×2 (10:19→20:37)
[2017-09-26] MEDS: ATENOLOL 50 MG TAB PO SCH ×2 (10:19→20:33)
[2017-09-26] MEDS: PREGABALIN 75 MG CAP PO SCH ×3 (10:19→20:36)
[2017-09-26] MEDS: INSULIN LISPRO 100 UNIT/ML SC SCH ×3 (10:21→19:26)
[2017-09-26] MEDS: SENNOSIDES/DOCUSATE SODIUM TAB PO SCH ×2 (10:23→20:35)
[2017-09-26] MEDS: morphINE SR 30 MG TAB PO SCH ×2 (10:23→20:36)
[2017-09-26] MEDS: morphINE SR 15 MG TAB PO SCH ×2 (10:23→20:36)
[2017-09-26] MEDS ORDERED: LR 1,000 ML IV ONE (12:14)
[2017-09-26] MEDS ORDERED: BACITRACIN 50,000 UNITS/10 ML SYR IRR ONE (12:24)
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
[2017-09-26] MEDS ORDERED: PROPOFOL 200 MG/20 ML VIAL ONE (12:54)
[2017-09-26] MEDS ORDERED: fentaNYL 100 MCG/2 ML INJ ONE ×4 (12:54→16:47)
--- NOTE | 2017-09-26 13:08 | HOSPPROG ---
Hospitalist Progress Note Assessment/Plan: * Foot infection - probable osteo -IV vanco, IV zosyn -amputation (tomorrow) -ortho to attempt hardware removal for BKA -if unsuccessful then AKA * EKG changes - new compared with previous EKG -stress test abnormal - appreciate cardiology consult -repeat trop and ECHO -high risk for surgery, but cardiac cath not felt to alter that risk -amputation is medically necessary in an urgent manner * PVD -ASA, Plavix, lipitor * DM II -insulin 70/30 - previous home dose 110 u am, 90 u pm -titrate insulin -will monitor glucose given he will be NPO at midnight * Dementia/TBI/NH resident * Chronic pain with continuous narcotic dependency -MS contin * HTN: was elevated earlier, but most recent BP 120's systolic. NO changes for now -Cont Atenolol Plan: -To surgery today -Can increase long acting insulin once back on PO meds Subjective: will have surgery today. No cp or sob. Objective: Vital Signs Temp Pulse Resp BP Pulse Ox 36.9 C 76 18 176/81 H 92 09/26/17 08:00 09/26/17 12:50 09/26/17 12:50 09/26/17 12:50 09/26/17 12:50 Laboratory Results 09/26/17 04:40 09/26/17 04:40 09/25/17 09/26/17 09/27/17 05:59 05:59 05:59 Intake Total 1270 980 Output Total 3300 1500 Balance -2030 -520 PT 15.3 SEC (12.0-15.0) H 09/20/17 09:42 INR 1.19 (0.83-1.16) H 09/20/17 09:42 - Physical Exam Constitutional: no apparent distress Eyes: PERRL, EOMI Ears, Nose, Mouth, Throat: moist mucous membranes Cardiovascular: regular rate and rhythym, no murmur, rub, or gallop Respiratory: no respiratory distress, no rales or rhonchi Gastrointestinal: normoactive bowel sounds, soft, non-tender abdomen Skin: warm Neurologic: No AAOx3 Psychiatric: interacting appropriately, not anxious, encephalopathic Lymph, Heme, Immunologic: petechiae ICD10 Worksheet Patient Problems: Problems Problem Status Onset Abnormal EKG Acute Anemia Acute Diabetic infection of left foot Acute Elevated troponin Acute Foot infection Acute Encephalopathy acute Acute
[2017-09-26] MEDS ORDERED: DEXMEDETOMIDINE HCL 200 MCG in NS 50 ML IV ONE (13:30)
[2017-09-26] MEDS ORDERED: LIDOCAINE 2% 5 ML SDV ONE (14:23)
[2017-09-26] MEDS ORDERED: ROCURONIUM 50 MG/5 ML VIAL ONE (14:23)
[2017-09-26] MEDS ORDERED: PHENYLEPHRINE HCL 100 MCG/ML SYR ONE (14:24)
[2017-09-26] MEDS ORDERED: ONDANSETRON 4 MG/2 ML VIAL ONE (14:43)
[2017-09-26] MEDS ORDERED: LR 500 ML IV PRN (14:47)
[2017-09-26] MEDS ORDERED: PHENYLEPHRINE HCL 100 MCG/ML SYR IVP PRN (14:47)
[2017-09-26] MEDS ORDERED: ENALAPRILAT DIHYDRATE 1.25 MG/ML VIAL IVP PRN (14:47)
[2017-09-26] MEDS ORDERED: OXYCODONE/APAP 5/325 TAB PO PRN (14:47)
[2017-09-26] MEDS ORDERED: NALOXONE HCL 0.4 MG/ML INJ IVP PRN (14:47)
[2017-09-26] MEDS ORDERED: PROMETHAZINE HCL 25 MG/ML INJ IVP PRN (14:47)
[2017-09-26] MEDS ORDERED: MEPERIDINE 25 MG/ML SYR IVP PRN (14:47)
[2017-09-26] MEDS ORDERED: ONDANSETRON 4 MG/2 ML VIAL IVP PRN (14:47)
--- NOTE | 2017-09-26 15:31 | POSTOPPROG ---
Post Op Note Date of Operation: 09/26/17 Surgeon: Bhupinder Henriquez Casket Upholsterer: none Anesthesiologist: Ivory Anesthesia: GET(General Endotracheal) Pre-op Diagnosis: left foot gangrene Post-op Diagnosis: same Procedure: Guillotine amputation mid tib Inf/Abcess present in the surg proc area at time of surgery?: Yes Depth: Deep Incisional (Fascial) EBL: Minimal Specimen(s): Left distal lower extremity
--- NOTE | 2017-09-26 15:48 | POSTANESTH ---
Post Anesthetic Evaluation Cardiovascular Status: Normal, Stable Respiratory Status: Similar to Pre-op Cond. Level of Consciousness/Mental Status: Can Participate in Eval, Moderately Sleepy Pain Control: Adequate, Prn Tx Ordered Nausea/Vomiting Control: Adequate, Prn Tx Ordered Complications Possibly Related to Anesthesia: None Noted
[2017-09-26] MEDS: fentaNYL 100 MCG/2 ML INJ IVP PRN ×4 (16:07→17:00)
--- NOTE | 2017-09-26 19:15 | GOP ---
[f rep st] OPERATIVE REPORT DATE OF OPERATION: 09/26/2017 SURGEON: Pancho Sesay MD MUSEUM SECURITY CHIEF: Roxana Irene PA-C. ANESTHESIA: General. ANESTHESIOLOGIST: Dr. Dodson. PREOPERATIVE DIAGNOSIS: 1. Left foot and ankle deep space, chronic infection, chronic osteomyelitis, and leg cellulitis. 2. Left tibial plateau and tibial shaft retained hardware preventing below- knee amputation. 3. 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 POSTOPERATIVE DIAGNOSIS: 1. Left foot and ankle deep space, chronic infection, chronic osteomyelitis, and leg cellulitis. 2. Left tibial plateau and tibial shaft retained hardware preventing below- knee amputation. 3. Left tibial plateau malunion and deformity with tibial plateau and shaft heterotopic ossification. PROCEDURE PERFORMED: 1. Left knee/tibial plateau and left tibial shaft hardware removal including plate and screws. 2. Excision of left tibial plateau and tibial shaft heterotopic ossification with osteoplasty of tibial plate site. FINDINGS: Complete healing at the fracture site. Abundant and impressive heterotopic ossification entirely enveloping and covering the plate proximally at the tibial plateau as well as distally throughout the shaft of plate. There were a total of 9 screws, 5 proximal, including 3 locking screws on the horizontal portion of the plate, and 2 additional nonlocking screws. Distally, there were 4 bicortical, nonlocking screws. All the following was from the [employer] large frag set. There was a large lateral tibial plateau periarticular locking plate that was intact. Bone quality was good. No signs of obvious overt infection around the plate. SPECIMENS: Multiple cultures were taken from the site of hardware removal and heterotopic ossification excision, including 3 pairs of cultures. These were labeled top, middle, and bottom, and each of these cultures included soft tissue and/or bone as well as a swab of either the drill hole or the area under the plate. A total of 6 cultures, including 3 soft tissue and 3 swab cultures were taken and sent for aerobic, anaerobic, and fungal. ESTIMATED BLOOD LOSS: Trace. INDICATIONS: This is a 62-year-old male who has had chronic osteomyelitis as well as deep space infections throughout the foot and ankle. Most recently, he has had cellulitis up to his mid aviles. After many months of conservative care and failure to salvage the limb, the patient and family have agreed to proceed with below-knee amputation with Bhupinder Henriquez MD. Dr. Henriquez has consulted with me to assist him in this BKA with removal of the heterotopic ossification as well as removal of all hardware for a guillotine amputation that will be staged for eventual BKA formalization. The risks, benefits, and alternatives to the surgery have been described to the patient as well his medical power of software educator, his sister, and they agree with the plan. She has provided a signed and witnessed informed consent which has been placed in the patient's chart. Please see history and physical for additional information. DESCRIPTION OF PROCEDURE: Patient was identified in the preoperative holding area, and his left leg was signed as the operative site. The patient was confirmed in right lower extremity VANESSA hose and SCDs. He received a standard Zosyn and/or other antibiotics per standard schedule for his infection. The patient was taken back to the operating room and general anesthesia was obtained. A bump was placed under the left hip. Left lower extremity was wrapped proximally with cast padding and a nonsterile tourniquet, and then prepped and draped in the usual sterile manner. Additional care was taken to assure padding and stabilization of the right leg as well as all bony prominences. Both upper extremities were placed in a well-padded armboard. Esmarch exsanguination was used to inflate the tourniquet to 300 mmHg. The plate was removed via standard anterolateral approach, hockey-stick type incision. Initially, the proximal plate was accessed for removal of those screws with a single incision, and then subsequently an additional distal incision was performed with a 10-blade as well in order to access and remove the distal screws. The skin bridge was eventually completed in order to perform the amputation by Dr. Henriquez. Please note that there was abundant heterotopic ossification over the plate. In each case, the incisions were made through the full-thickness of the dermis and careful dissection was taken down to the subcutaneous fat. The IT band was identified and divided in parallel with its fibers. The dissection was carried along the anterior tibial plateau to Gerdy tubercle and down along the tibial crest. The anterior compartment was entered, and subperiosteal dissection was carried posteriorly to the plate in all cases. Bovie cautery was used to maintain meticulous hemostasis and coagulate any small vessels encountered. Once the plate was appropriately exposed, the heterotopic ossification was addressed. Given the extensive amount of HO, the osteotome set was used to carefully and meticulously elevate all of the heterotopic ossification from over and around the plate. Once this was excised to completely free the plate and all screws had been removed, the plate was then ready for explantation. Please note that all screws were removed with the standard Synthes large frag screwdrivers, including those Star [employer] for the locking screws and the hex drives for the nonlocking screws. All screws were removed in their entirety x9. With the plate now freed of all heterotopic ossification and screws, it was carefully elevated in a [id number] manner. The plate was then removed from the wound in its entirety. The underlying bone was inspected throughout, and there were no signs of obvious fracture from the removal of the hardware. All of the overgrown bone underneath the plate was then further debrided with a rongeur and an osteotome in order to provide a smooth bed to facilitate eventual BKA prosthetic fit and overall stump health. Once this was completed, the wound was copiously irrigated with sterile saline. Please note that during the successive excision of heterotopic ossification and removal of hardware, cultures were taken, labeled the top for the horizontal locking screws, i.e., screw tract and heterotopic ossification, and then middle for the central portion of the plate where there were no screws, and the heterotopic ossification was sent as culture as well as a swab from this area. Then lastly , 2 additional cultures were sent distally from the distal screw holes and HO excision. Once the wound was copiously irrigated with sterile saline throughout, the proximal aspect of the incision was addressed and closed by me. The IT band split was closed with multiple #1 Ethibond sutures. The deep dermal layer was closed with multiple 2-0 Vicryl sutures. At this point, Dr. Henriquez preferred for me to leave the remainder of the anterior tibial crest incision open for him to perform his guillotine amputation. At this point, he assumed the care of the patient, and took over to perform the amputation. Please see his operative report for additional information. TOURNIQUET TIME: 42 minutes at 300 mmHg. The tourniquet was left up for Dr. Henriquez's portion of the surgery. DRAINS: None placed by me. IMPLANTS: None. COMPLICATIONS: None. DISPOSITION: The patient was left in the care of Dr. Henriquez in the operating room. Again, please see his note for additional information and completion of the overall procedure. /[id number]/MODL MTDD
[2017-09-26] MEDS: ATORVASTATIN CALCIUM 40 MG TAB PO SCH (20:35)
[2017-09-26] MEDS: ALTEPLASE 2 MG VIAL IVP PRN (23:28)
[2017-09-26] MEDS: INSULIN 70/30 HUMAN 100 UNIT/ML SYR SC SCH (23:40)
[2017-09-27] MEDS: oxyCODONE IR 5 MG TAB PO PRN ×4 (00:44→21:07)
[2017-09-27] MEDS: PIPERACILLIN/TAZO 3.375 GM/DEX 50 ML IV SCH ×3 (00:49→13:15)
[2017-09-27] MEDS: VANCOMYCIN 1.5 GM in NS 250 ML IV SCH ×2 (03:30→15:39)
[2017-09-27 06:25] LABS: PLATELET COUNT 308 10^3/uL (150-400)
--- NOTE | 2017-09-27 08:34 | SOAPPROG ---
SOAP Progress Note Assessment/Plan: Assessment: s/p Left leg BKA POD #1: overall doing well, no signs of infection at this time. PVD -ASA, Plavix, lipitor DM II Dementia/TBI/NH resident Chronic pain with continuous narcotic dependency -MS contin HTN Plan: -Left foot s/p BKA: can continue IV medication per hospitalists, general surgery and I/D. -PT/OT: up with PT/OT, NWB to left lower extremity. -DVT prophylaxis: SCDs on non-op side, VANESSA wisdom, IS. Continue plan per hospitalists/general surgery as well, appreciate their recc's. -PVD: continue plan per hospitalists. -DM II: Continue plan per hospitalists. -HTN: continue to monitor. -F/U prn additional questions/concerns which may arise. Patient and plan discussed/agreed upon with Dr. Sesay. Subjective: POD#1 Left knee BKA: Sitting up in chair, able to respond appropriately to questions. Main concern is he feels he has "left ankle pain." States pain is currently well controlled. Denies fever, chills, NVD, cough, congestion, chest pain, SOB, dyspnea, claudication, abnormal bleeding/oozing/discharge, foul odor, change in heat/ color around the dressing site or of his extremities. Objective: Vital Signs Temp Pulse Resp BP Pulse Ox 36.8 C 82 20 118/78 93 09/27/17 07:52 09/27/17 07:52 09/27/17 07:52 09/27/17 07:52 09/27/17 07:52 Microbiology 09/26/17 14:00 Gram Stain - Final Leg - Eswab 09/26/17 14:00 Gram Stain - Final Leg - Tissue 09/26/17 14:05 Gram Stain - Final Leg - Tissue 09/26/17 14:04 Gram Stain - Final Leg - Eswab 09/26/17 14:04 Gram Stain - Final Leg - Tissue 09/26/17 13:50 Gram Stain - Final Leg - Tissue 09/26/17 13:50 Gram Stain - Final Leg - Eswab Laboratory Results 09/27/17 06:00 09/27/17 06:00 09/26/17 09/27/17 09/28/17 05:59 05:59 05:59 Intake Total 980 1390 Output Total 1500 1150 Balance -520 240 PT 15.3 SEC (12.0-15.0) H 09/20/17 09:42 INR 1.19 (0.83-1.16) H 09/20/17 09:42 Physical Exam: Patient is A&O, able to respond appropriately to questions, NAD. HEENT: AMY, EOMs intact, moist buccal mucosa, hearing intact. CV: Non-labored breathing, no diaphoresis. Right calf soft supple and NTTP b/l with negative Homans. Brisk cap refill present in right lower extremity. RRR. GI: Abdomen soft, non-tender, non-distended. MS: -Left lower extremity s/p BKA: dressing dry and intact. No abnormal bleeding/ oozing/discharge or foul odor present. No abnormal change in heat/color around dressing site. Minimally TTP. Right lower extremity with full AROM, calf soft/ supple and NTTP with negative Sina and brisk cap refill. Labs: All gram stains currently still negative. Aerobic/anaerobic and fungal all still pending. ICD10 Worksheet Patient Problems: Problems Problem Status Onset Abnormal EKG Acute Anemia Acute Diabetic infection of left foot Acute Elevated troponin Acute Foot infection Acute Encephalopathy acute Acute
[2017-09-27] MEDS: ATENOLOL 50 MG TAB PO SCH ×2 (08:52→20:26)
[2017-09-27] MEDS: SENNOSIDES/DOCUSATE SODIUM TAB PO SCH ×2 (08:53→20:27)
[2017-09-27] MEDS: morphINE SR 15 MG TAB PO SCH ×2 (08:53→20:27)
[2017-09-27] MEDS: INSULIN LISPRO 100 UNIT/ML SC SCH ×3 (08:53→18:01)
[2017-09-27] MEDS: FAMOTIDINE 20 MG TAB PO SCH ×2 (08:53→20:27)
[2017-09-27] MEDS: morphINE SR 30 MG TAB PO SCH ×2 (08:53→20:27)
[2017-09-27] MEDS: PREGABALIN 75 MG CAP PO SCH ×3 (08:53→20:27)
[2017-09-27] MEDS: INSULIN 70/30 HUMAN 100 UNIT/ML SYR SC SCH ×2 (10:20→21:07)
--- NOTE | 2017-09-27 12:10 | PCMIDPN ---
Assessment/Plan: #Recurrent left lower extremity cellulitis and chronic non-healing wounds with exposed bone in wounds, PVD now s/p L-BKA, multiple cx taken in OR for concern of underlying OM in the setting of some retained HWR but current micro data unremarkable --prior cx only showed MRSA, dc Zosyn --continue to monitor cultures --likely short course of Vancomycin, will follow out cx 1 week or less and if negative stop all abx --Dr. Henriquez aware of blood strike through on LLE dressing per RN # H/o MRSA: contact precautions Medications 3 Generic Name Dose Route Start Last Admin Trade Name Freq PRN Reason Stop Dose Admin Vancomycin HCl 1.5 gm/ Sodium 250 mls @ 166.667 mls/hr 09/20/17 15:00 03:30 Chloride #6 IV 10/20/17 14:59 250 mls BID@0300,1500 FELICITY Piperacillin/Tazobactam/Dextrose 50 mls @ 100 mls/hr 09/20/17 18:00 09/27/17 05:47 Zosyn 3.375 Gm (Premix) #6 IV 10/20/17 17:59 50 mls Q6HRS FELICITY Protocol micro 09/26 Surgical specimens (7 samples) : reviewed gram stain neg and cx neg at 24h 09/20 blood cx (2) neg Subjective: patient c/o left "foot" Pain Objective: Vital Signs Temp Pulse Resp BP Pulse Ox 36.8 C 84 20 118/78 93 09/27/17 07:52 09/27/17 08:52 09/27/17 07:52 09/27/17 08:52 09/27/17 07:52 Microbiology 09/26/17 14:04 Gram Stain - Final Leg - Tissue 09/26/17 14:05 Gram Stain - Final Leg - Tissue 09/26/17 13:50 Gram Stain - Final Leg - Eswab 09/26/17 13:50 Gram Stain - Final Leg - Tissue 09/26/17 14:00 Gram Stain - Final Leg - Eswab 09/26/17 14:00 Gram Stain - Final Leg - Tissue 09/26/17 14:04 Gram Stain - Final Leg - Eswab Laboratory Results 09/27/17 06:00 09/27/17 06:00 09/26/17 09/27/1709/28/18 05:59 05:59 05:59 Intake Total 980 1390 Output Total 1500 1150 Balance -520 240 - Physical Exam General Appearance: obese EENT: pale conjunctiva Respiratory: lungs clear, No accessory muscle use Cardiac/Chest: regular rate, rhythm Extremities: other (L BKA with blood striking through dressing) Abdomen: non-tender, soft Male Genitalia: paz, No scrotal edema Skin: pallor, No rash Neuro/Psych: alert, normal mood/affect - Line/s LUE PICC Lines: No drainage, No erythema ICD10 Worksheet Patient Problems: Problems Problem Status Onset Abnormal EKG Acute Anemia Acute Diabetic infection of left foot Acute Elevated troponin Acute Foot infection Acute Encephalopathy acute Acute
--- NOTE | 2017-09-27 14:41 | HOSPPROG ---
Hospitalist Progress Note Assessment/Plan: * Foot infection - probable osteo -IV vanco -IV zosyn was stopped on 09/27 * S/P Left BKA on 09/26 * EKG changes - new compared with previous EKG -stress test abnormal - appreciate cardiology consult -high risk for surgery, but cardiac cath not felt to alter that risk -amputation is medically necessary in an urgent manner * PVD -ASA, Plavix, lipitor -Need to restart ASA and Plavix once OK by surgery * DM II -insulin 70/30 - previous home dose 110 u am, 90 u pm -titrate insulin -glucose is better controlled today. will need to continue to titrate * Dementia/TBI/NH resident * Chronic pain with continuous narcotic dependency -MS contin * HTN (Labile): was elevated earlier, but most recent BP 120's systolic. NO changes for now -Cont Atenolol Plan: -Abx per ID -monitor glucose, titrate insulin, will likely need to increase -restart Aspirin, Plavix, Lovenox when ok with surgery -Monitor BP, labile readings, no changes to meds today Subjective: BKA yesterday. doing well today. Bp better. Glucose is better. no cp or sob. somewhat confused, but likely baseline Objective: Vital Signs Temp Pulse Resp BP Pulse Ox 36.8 C 84 20 118/78 93 09/27/17 07:52 09/27/17 08:52 09/27/17 07:52 09/27/17 08:52 09/27/17 07:52 Microbiology 09/26/17 14:04 Gram Stain - Final Leg - Tissue 09/26/17 14:05 Gram Stain - Final Leg - Tissue 09/26/17 13:50 Gram Stain - Final Leg - Eswab 09/26/17 13:50 Gram Stain - Final Leg - Tissue 09/26/17 14:00 Gram Stain - Final Leg - Eswab 09/26/17 14:00 Gram Stain - Final Leg - Tissue 09/26/17 14:04 Gram Stain - Final Leg - Eswab Laboratory Results 09/27/17 06:00 09/27/17 06:00 09/26/17 09/27/17 09/28/17 05:59 05:59 05:59 Intake Total 980 1390 Output Total 1500 1150 Balance -520 240 PT 15.3 SEC (12.0-15.0) H 09/20/17 09:42 INR 1.19 (0.83-1.16) H 09/20/17 09:42 - Physical Exam Constitutional: no apparent distress Eyes: PERRL, EOMI Ears, Nose, Mouth, Throat: moist mucous membranes, hearing normal Cardiovascular: regular rate and rhythym Respiratory: no respiratory distress, no rales or rhonchi Gastrointestinal: normoactive bowel sounds Skin: warm Neurologic: No AAOx3 Psychiatric: interacting appropriately, not anxious, encephalopathic ICD10 Worksheet Patient Problems: Problems Problem Status Onset Abnormal EKG Acute Anemia Acute Diabetic infection of left foot Acute Elevated troponin Acute Foot infection Acute Encephalopathy acute Acute
--- NOTE | 2017-09-27 15:21 | ASMTCMCOM ---
CM Note CM Note Notes: Chart reviewed. Met with patient's sister Kimmy who is guardian to review discharge plan of care. She lives in [place] and would prefer LTAC in [place] if at all possible. Referrals placed in allscripts. Per Kimmy, patient may require additional amputation if cultures indicate. CM to follow. Date Signed: 09/27/2017 03:21 PM Electronically Signed By:Deepa Snow RN
[2017-09-27] MEDS: SODIUM HYPOCHLORITE (DAKINS 1/4 STR) 120 ML BTL TP SCH ×3 (15:39→20:20)
--- NOTE | 2017-09-27 16:19 | WOCRNPDOC ---
WOCRN Advanced Assessment Note - Skin Integrity Problem, Advanced Assess Coccyx Pressure Injury Dressing Type: Mepilex Border (sacral dressing) Exudate Amount: None Exudate Characteristic(s): None Integumentary Issue Intervention: Visualized Under Dressing Bernice Wound Tissue: Blanching, Intact Bernice Wound Swelling: None Wound Bed Color: Red Wound Bed Constitution: Red/Seffner - Non Granular Tissue Site Measurement - Head-to-Toe Length X Width X Depth (cm): 0.7cmx0.4cmx0.1cm Pressure Injury Stage: Stage 2 Pressure Injury Present on Admit: Yes (hospitalist notified) Skin Integrity Problem Comment: Wound remains unchanged since previous assessment. Partial-thickness tissue loss evident w/ friable margins. Periwound skin blanching. Patient had Mepilex sacral dressing in place, and I think this is appropriate to continue. Pressure-relieving interventions remain in place.
[2017-09-27] MEDS: ACETAMINOPHEN 325 MG TAB PO PRN (19:13)
--- NOTE | 2017-09-27 20:15 | SOAPPROG ---
SOAP Progress Note Assessment/Plan: Assessment/Plan: Non ST elevation OR versus chronic Trop elevation- awaiting stress test results POD#1 s/p BKA with hardware removal and cultures Leucocytosis resolved on Vanco/zosyn Pain as expected controlled with narcotics OOB to chair No chest pain/clinically stable Dressing changed wound without acute signs of infection Moderate bloody drainage as expected Await wound cultures Consider gabapentin for pain OOB wiht PT Formal BKA if cultures negative 09/27/17 20:12 Objective: Vital Signs Temp Pulse Resp BP Pulse Ox 37.2 C 104 H 18 148/70 H 95 09/27/17 19:47 09/27/17 19:47 09/27/17 19:47 09/27/17 19:47 09/27/17 19:47 Microbiology 09/26/17 14:04 Gram Stain - Final Leg - Tissue 09/26/17 14:05 Gram Stain - Final Leg - Tissue 09/26/17 13:50 Gram Stain - Final Leg - Eswab 09/26/17 13:50 Gram Stain - Final Leg - Tissue 09/26/17 14:00 Gram Stain - Final Leg - Eswab 09/26/17 14:00 Gram Stain - Final Leg - Tissue 09/26/17 14:04 Gram Stain - Final Leg - Eswab Laboratory Results 09/27/17 06:00 09/27/17 06:00 09/26/17 09/27/17 09/28/17 05:59 05:59 05:59 Intake Total 980 1390 1000 Output Total 1500 1150 700 Balance -520 240 300 PT 15.3 SEC (12.0-15.0) H 09/20/17 09:42 INR 1.19 (0.83-1.16) H 09/20/17 09:42 ICD10 Worksheet Patient Problems: Problems Problem Status Onset Abnormal EKG Acute Anemia Acute Diabetic infection of left foot Acute Elevated troponin Acute Foot infection Acute Encephalopathy acute Acute
[2017-09-27] MEDS: ATORVASTATIN CALCIUM 40 MG TAB PO SCH (20:27)
[2017-09-27] MEDS: GABAPENTIN 300 MG CAP PO SCH (21:07)
[2017-09-28] MEDS: VANCOMYCIN 1.5 GM in NS 250 ML IV SCH (03:38)
[2017-09-28] MEDS: ACETAMINOPHEN 325 MG TAB PO PRN ×2 (03:38→16:36)
[2017-09-28] MEDS: oxyCODONE IR 5 MG TAB PO PRN ×2 (03:39→13:35)
[2017-09-28 04:05] LABS: PLATELET COUNT 306 10^3/uL (150-400)
[2017-09-28] MEDS: INSULIN LISPRO 100 UNIT/ML SC SCH ×3 (07:49→17:18)
[2017-09-28] MEDS: INSULIN 70/30 HUMAN 100 UNIT/ML SYR SC SCH ×2 (09:59→21:19)
[2017-09-28] MEDS: SENNOSIDES/DOCUSATE SODIUM TAB PO SCH ×2 (10:01→21:15)
[2017-09-28] MEDS: PREGABALIN 75 MG CAP PO SCH ×3 (10:01→19:52)
[2017-09-28] MEDS: GABAPENTIN 300 MG CAP PO SCH ×3 (10:02→21:16)
[2017-09-28] MEDS: ATENOLOL 50 MG TAB PO SCH ×2 (10:02→21:15)
[2017-09-28] MEDS: morphINE SR 30 MG TAB PO SCH ×2 (10:02→21:16)
[2017-09-28] MEDS: FAMOTIDINE 20 MG TAB PO SCH ×2 (10:02→21:16)
[2017-09-28] MEDS: morphINE SR 15 MG TAB PO SCH ×2 (10:03→21:16)
--- NOTE | 2017-09-28 10:15 | HOSPPROG ---
Hospitalist Progress Note Assessment/Plan: Mr Gonzalez is a 62 y/o diabetic who was admitted with recurrent left lower ext cellulitis after a trial of IV abx and wound vac. Today is my first encounter w the patient, chart reviewed. * Foot infection - recurrent left lower extremity cellulitis, osteo and chronic nonhealing wounds -status post left BKA on 09/26 -IV vanco -IV zosyn was stopped * EKG changes - new compared with previous EKG -stress test abnormal - appreciate cardiology consult * PVD -ASA, Plavix, Lipitor * DM II -insulin 70/30 - previous home dose 110 u am, 90 u pm -titrate insulin -glucose is elevated -reviewed w his sister who helps order his diet, encouraged to monitor closely * Dementia/TBI/NH resident * Chronic pain with continuous narcotic dependency -MS contin * HTN (Labile): -Cont Atenolol * anemia -due to acute Plan:cont current care. will need SNF at [facility], will also need paz out soon. Subjective: Mr Gonzalez is upset during my evaluation, being transferred to another room w a elisabeth lift. Also, needing to have a bowel movement. Objective: Vital Signs Temp Pulse Resp BP Pulse Ox 36.8 C 82 16 120/71 95 09/28/17 08:00 09/28/17 08:00 09/28/17 08:00 09/28/17 08:00 09/28/17 08:00 Microbiology 09/26/17 14:04 Gram Stain - Final Leg - Tissue 09/26/17 14:05 Gram Stain - Final Leg - Tissue 09/26/17 13:50 Gram Stain - Final Leg - Eswab 09/26/17 13:50 Gram Stain - Final Leg - Tissue 09/26/17 14:00 Gram Stain - Final Leg - Eswab 09/26/17 14:00 Gram Stain - Final Leg - Tissue 09/26/17 14:04 Gram Stain - Final Leg - Eswab Laboratory Results 09/28/17 03:30 09/27/17 06:00 09/27/17 09/28/17 09/29/17 05:59 05:59 06:59 Intake Total 1390 1300 300 Output Total 1150 1300 Balance 240 0 300 PT 15.3 SEC (12.0-15.0) H 09/20/17 09:42 INR 1.19 (0.83-1.16) H 09/20/17 09:42 - Physical Exam Constitutional: chronically ill appearing, obese, uncomfortable Eyes: PERRL Ears, Nose, Mouth, Throat: hearing normal Respiratory: no respiratory distress Gastrointestinal: normoactive bowel sounds Skin: warm, No normal color (pale) Musculoskeletal: generalized weakness Psychiatric: agitated ICD10 Worksheet Patient Problems: Problems Problem Status Onset Abnormal EKG Acute Anemia Acute Diabetic infection of left foot Acute Elevated troponin Acute Foot infection Acute Encephalopathy acute Acute
[2017-09-28] MEDS: SODIUM HYPOCHLORITE (DAKINS 1/4 STR) 120 ML BTL TP SCH ×2 (10:19→14:37)
--- NOTE | 2017-09-28 11:01 | PCMIDPN ---
Assessment/Plan: 1. Left lower extremity infection status post BKA and hardware removal: Patient will likely have the stump revised next week, as it was left open. Agree with vancomycin monotherapy for now given previous cultures with MRSA. All cultures are so far negative; will likely continue antibiotic through revision, and then stop. Repeat vancomycin trough later this afternoon. Subjective: A bit grumpy. No diarrhea. Objective: Vancomycin 1.5 g IV q.12 hours day 7 Postop day 2 status post left BKA with hardware removal Afebrile Vital Signs Temp Pulse Resp BP Pulse Ox 36.8 C 82 16 120/71 95 09/28/17 08:00 09/28/17 08:00 09/28/17 08:00 09/28/17 08:00 09/28/17 08:00 Microbiology 09/26/17 14:04 Gram Stain - Final Leg - Tissue 09/26/17 14:05 Gram Stain - Final Leg - Tissue 09/26/17 13:50 Gram Stain - Final Leg - Eswab 09/26/17 13:50 Gram Stain - Final Leg - Tissue 09/26/17 14:00 Gram Stain - Final Leg - Eswab 09/26/17 14:00 Gram Stain - Final Leg - Tissue 09/26/17 14:04 Gram Stain - Final Leg - Eswab Laboratory Results 09/28/17 03:30 09/27/17 06:00 09/27/17 09/28/17 09/29/17 05:59 05:59 06:59 Intake Total 1390 1300 300 Output Total 1150 1300 Balance 240 0 300 All operative cultures negative so far - Physical Exam General Appearance: alert, no apparent distress, obese Extremities: other (Left BKA stump wrapped; the patient prefer that I did not unwrap it at this time.) Skin: No rash ICD10 Worksheet Patient Problems: Problems Problem Status Onset Abnormal EKG Acute Anemia Acute Diabetic infection of left foot Acute Elevated troponin Acute Foot infection Acute Encephalopathy acute Acute
--- NOTE | 2017-09-28 12:21 | SOAPPROG ---
SOAP Progress Note Assessment/Plan: Assessment: POD 2 s/p guillotine BKA by Dr Henriquez and necessary HO resxn/plate &screw removal by me. Cardiac w/u underway due to new/post-op EKG and stress test results. Plan: Safe to proceed with BKA formalization per Dr Henriquez's scheduling/plan with optimized risk for infectious complications at stump site, given all OR cultures negative and now all HW removed. Agree wtih gabapentin for neuropathic /phantom limb sx. Consider IPOP at time of BKA formalization. I discussed this case with Anjana O&Zeferino Joya ([phone]), who sent a tech to examine his deformity and limb dimension, who agreed with plan and ability to fit him well with a BKA prosthetic. Call Anjana to coordinate. Until OR BKA, continue wound care per Dr Henriquez's recs and please call me with any other questions or concerns. 09/28/17 12:24 Subjective: New EKG changes and abnml stress test post-op, possible new CT - cardiology consult pending. Receiving stump/wound care from [facility], under supervision of Dr Henriquez POD 2 s/p guillotine BKA. Objective: Vital Signs Temp Pulse Resp BP Pulse Ox 37.1 C 83 18 115/74 94 09/28/17 11:44 09/28/17 11:44 09/28/17 11:44 09/28/17 11:44 09/28/17 11:44 Microbiology 09/26/17 14:00 Gram Stain - Final Leg - Eswab 09/26/17 14:00 Gram Stain - Final Leg - Tissue 09/26/17 14:05 Gram Stain - Final Leg - Tissue 09/26/17 14:04 Gram Stain - Final Leg - Eswab 09/26/17 14:04 Gram Stain - Final Leg - Tissue 09/26/17 13:50 Gram Stain - Final Leg - Tissue 09/26/17 13:50 Gram Stain - Final Leg - Eswab Laboratory Results 09/28/17 03:30 09/27/17 06:00 09/27/17 09/28/17 09/29/17 05:59 05:59 06:59 Intake Total 1390 1300 700 Output Total 1150 1300 Balance 240 0 700 PT 15.3 SEC (12.0-15.0) H 09/20/17 09:42 INR 1.19 (0.83-1.16) H 09/20/17 09:42 All surgical cultures from around plate/HO, extending from plateau to distal 1/ 3 of tibial shaft are negative. ICD10 Worksheet Patient Problems: Problems Problem Status Onset Abnormal EKG Acute Anemia Acute Diabetic infection of left foot Acute Elevated troponin Acute Foot infection Acute Encephalopathy acute Acute
[2017-09-28] MEDS: VANCOMYCIN 1.25 GM in NS 250 ML IV SCH (15:17)
--- NOTE | 2017-09-28 16:29 | SOAPPROG ---
SOAP Progress Note Assessment/Plan: Assessment: pain controlled today - some discomfort last ritchie. no other new complaints. afebrile. stump granulating well - hyperemia/induration anterior flap. incisions clean - purulence or odor. doing well. for BK completion/ closure next week. dressings changed with family and staff. Plan: 09/28/17 16:28 Objective: Vital Signs Temp Pulse Resp BP Pulse Ox 37.2 C 96 18 165/87 H 94 09/28/17 15:59 09/28/17 15:59 09/28/17 15:59 09/28/17 15:59 09/28/17 15:59 Microbiology 09/26/17 14:00 Gram Stain - Final Leg - Eswab 09/26/17 14:00 Gram Stain - Final Leg - Tissue 09/26/17 14:05 Gram Stain - Final Leg - Tissue 09/26/17 14:04 Gram Stain - Final Leg - Eswab 09/26/17 14:04 Gram Stain - Final Leg - Tissue 09/26/17 13:50 Gram Stain - Final Leg - Tissue 09/26/17 13:50 Gram Stain - Final Leg - Eswab Laboratory Results 09/28/17 03:30 09/27/17 06:00 09/27/17 09/28/17 09/29/17 05:59 05:59 06:59 Intake Total 1390 1300 700 Output Total 1150 1300 900 Balance 240 0 -200 PT 15.3 SEC (12.0-15.0) H 09/20/17 09:42 INR 1.19 (0.83-1.16) H 09/20/17 09:42 ICD10 Worksheet Patient Problems: Problems Problem Status Onset Abnormal EKG Acute Anemia Acute Diabetic infection of left foot Acute Elevated troponin Acute Foot infection Acute Encephalopathy acute Acute
[2017-09-28] MEDS: ATORVASTATIN CALCIUM 40 MG TAB PO SCH (21:16)
[2017-09-29] MEDS: VANCOMYCIN 1.25 GM in NS 250 ML IV SCH ×2 (03:26→15:13)
[2017-09-29] MEDS: SODIUM HYPOCHLORITE (DAKINS 1/4 STR) 120 ML BTL TP SCH (06:02)
[2017-09-29] MEDS: INSULIN LISPRO 100 UNIT/ML SC SCH ×3 (08:43→17:49)
[2017-09-29] MEDS: PREGABALIN 75 MG CAP PO SCH ×3 (08:51→22:22)
[2017-09-29] MEDS: INSULIN 70/30 HUMAN 100 UNIT/ML SYR SC SCH ×2 (09:18→22:28)
[2017-09-29] MEDS: GABAPENTIN 300 MG CAP PO SCH ×3 (09:20→22:31)
[2017-09-29] MEDS: FAMOTIDINE 20 MG TAB PO SCH ×2 (09:20→22:28)
[2017-09-29] MEDS: morphINE SR 30 MG TAB PO SCH (09:20)
[2017-09-29] MEDS: SENNOSIDES/DOCUSATE SODIUM TAB PO SCH ×2 (09:20→22:30)
[2017-09-29] MEDS: ATENOLOL 50 MG TAB PO SCH ×2 (09:20→22:23)
[2017-09-29] MEDS: morphINE SR 15 MG TAB PO SCH (09:20)
--- NOTE | 2017-09-29 09:37 | HOSPPROG ---
Hospitalist Progress Note Assessment/Plan: Mr Gonzalez is a 62 y/o diabetic who was admitted with recurrent left lower ext cellulitis after a trial of IV abx and wound vac. Today is my first encounter w the patient, chart reviewed. * Foot infection - recurrent left lower extremity cellulitis, osteo and chronic nonhealing wounds -status post left BKA on 09/26, will get closure of the stump this week -IV vanco * EKG changes - new compared with previous EKG -stress test abnormal - appreciate cardiology consult * PVD -ASA, Plavix, Lipitor * DM II -insulin 70/30 - previous home dose 110 u am, 90 u pm -titrate insulin -glucose is a bit better, decrease carbs in diet * Dementia/TBI/NH resident * Chronic pain with continuous narcotic dependency -MS contin * HTN (Labile): -Cont Atenolol * anemia -due to acute illness Plan: dc paz today. Subjective: Gibson wants the paz left in. Doesn't want to use a urinal. Objective: Vital Signs Temp Pulse Resp BP Pulse Ox 36.8 C 80 18 126/75 H 92 09/29/17 07:36 09/29/17 07:36 09/29/17 07:36 09/29/17 07:36 09/29/17 07:36 Microbiology 09/26/17 14:00 Gram Stain - Final Leg - Eswab 09/26/17 14:00 Gram Stain - Final Leg - Tissue 09/26/17 14:05 Gram Stain - Final Leg - Tissue 09/26/17 14:04 Gram Stain - Final Leg - Eswab 09/26/17 14:04 Gram Stain - Final Leg - Tissue 09/26/17 13:50 Gram Stain - Final Leg - Tissue 09/26/17 13:50 Gram Stain - Final Leg - Eswab Laboratory Results 09/28/17 03:30 09/27/17 06:00 09/28/17 09/29/17 09/30/17 04:59 05:59 05:59 Intake Total 300 Output Total Balance 300 PT 15.3 SEC (12.0-15.0) H 09/20/17 09:42 INR 1.19 (0.83-1.16) H 09/20/17 09:42 - Physical Exam Constitutional: chronically ill appearing, obese, uncomfortable Eyes: PERRL Ears, Nose, Mouth, Throat: hard of hearing Cardiovascular: regular rate and rhythym Respiratory: no respiratory distress Skin: warm, No normal color (pale) Musculoskeletal: generalized weakness Neurologic: AAOx3 Psychiatric: interacting appropriately, poor insight, poor judgement, poor memory ICD10 Worksheet Patient Problems: Problems Problem Status Onset Abnormal EKG Acute Anemia Acute Diabetic infection of left foot Acute Elevated troponin Acute Foot infection Acute Encephalopathy acute Acute
--- NOTE | 2017-09-29 10:30 | SOAPPROG ---
SOAP Progress Note Assessment/Plan: Assessment: no overnight issues. pain adequately controlled. avss. comfortable. dressing dry. anterior leg skin without erythema. dong well. for definitive closure later this week. pain controlled today - some discomfort last ritchie. no other new complaints. afebrile. stump granulating well - hyperemia/induration anterior flap. incisions clean - purulence or odor. doing well. for BK completion/closure next week. dressings changed with family and staff. Plan: 09/28/17 16:28 09/29/17 10:28 Objective: Vital Signs Temp Pulse Resp BP Pulse Ox 36.8 C 80 18 126/75 H 92 09/29/17 07:36 09/29/17 07:36 09/29/17 07:36 09/29/17 07:36 09/29/17 07:36 Microbiology 09/26/17 14:00 Gram Stain - Final Leg - Eswab 09/26/17 14:00 Gram Stain - Final Leg - Tissue 09/26/17 14:05 Gram Stain - Final Leg - Tissue 09/26/17 14:04 Gram Stain - Final Leg - Eswab 09/26/17 14:04 Gram Stain - Final Leg - Tissue 09/26/17 13:50 Gram Stain - Final Leg - Tissue 09/26/17 13:50 Gram Stain - Final Leg - Eswab Laboratory Results 09/28/17 03:30 09/27/17 06:00 09/28/17 09/29/17 09/30/17 04:59 05:59 05:59 Intake Total 300 Output Total Balance 300 PT 15.3 SEC (12.0-15.0) H 09/20/17 09:42 INR 1.19 (0.83-1.16) H 09/20/17 09:42 ICD10 Worksheet Patient Problems: Problems Problem Status Onset Abnormal EKG Acute Anemia Acute Diabetic infection of left foot Acute Elevated troponin Acute Foot infection Acute Encephalopathy acute Acute
[2017-09-29] MEDS: oxyCODONE IR 5 MG TAB PO PRN ×2 (10:49→15:09)
[2017-09-29] MEDS: ALTEPLASE 2 MG VIAL IVP PRN (15:59)
--- NOTE | 2017-09-29 18:01 | ASMTCMCOM ---
CM Note CM Note Notes: Pt to BKA completion this week. LTAC recommended and referrasl sent to [facility] stated that pt needs 3 days in ICU due to Medicare rules change as of 09/19. They would be willing to consider accepting him even though he has not had an ICU stay but it is less likely. CM will f/u with them on Saturday. Sofia will get in touch with CM for more info as well on Saturday. CM to follow. Date Signed: 09/29/2017 12:05 PM Electronically Signed By:Sherri Pablo LCSW
[2017-09-29 20:46] VITALS: RESP 16; TEMP 98.8
[2017-09-29] MEDS ORDERED: morphINE SR 15 MG TAB PO SCH (21:00)
[2017-09-29] MEDS ORDERED: morphINE SR 30 MG TAB PO SCH (21:00)
[2017-09-29] MEDS: ATORVASTATIN CALCIUM 40 MG TAB PO SCH (22:28)
[2017-09-30 00:18] VITALS: BP 114/67; PULSE 73; O2SAT 97
[2017-09-30] MEDS ORDERED: MAGNESIUM CITRATE 300 ML BOTTLE ONE (00:49)
[2017-09-30] MEDS ORDERED: MAGNESIUM SULF 1 GM/DEXTROSE 100 ML BAG IV ONE (00:50)
[2017-09-30] MEDS ORDERED: MAGNESIUM SULF 2 GM/WATER 50 ML BAG IV ONE (00:51)
[2017-09-30 01:15] LABS: PLATELET COUNT 309 10^3/uL (150-400)
--- NOTE | 2017-09-30 01:25 | EDPHY ---
Inpatient Procedure Narrative: I was called to the floor for a code blue to find patient unresponsive, being bagged by Respiratory therapy, in ventricular fibrillation without pulses. CPR was in progress. Patient eventually after several rounds of CPR and defibrillation entered a normal sinus rhythm. Oxygen saturations were in the 80s. Once CPR had ceased because patient had a blood pressure, I proceeded with intubation as detailed below. INTUBATION Procedure: Rapid sequence intubation. Indication for the procedure was airway protection. The patient was preoxygenated with 100% oxygen by non-rebreather mask. The patient was given the following IV medications: Ketamine and rocuronium. The patient was orally endotracheally intubated under direct visualization with [place] for with a 8.0 ETT. Tracheal intubation was confirmed with misting on the tube; breath sounds were auscultated equally bilaterally; appropriate color change with [place] [employer] CO2 detector. Chest X-ray shows ETT in good position. The procedure was performed by myself.
[2017-09-30] MEDS ORDERED: KETAMINE 200 MG/20 ML VIAL ONE (01:42)
[2017-09-30] MEDS ORDERED: ROCURONIUM 100 MG/10 ML VIAL ONE (01:43)
--- NOTE | 2017-09-30 01:47 | HOSPPROG ---
Hospitalist Progress Note Assessment/Plan: Hospitalist Night Float Note Arrived to bedside for stat team converted to code blue at or just before approximately 12:35 a.m. RN reports alarms set off for VFib and patient was found unresponsive, pulseless. Compressions were in progress upon my arrival and crash cart was at bedside. Patient was being hooked up to monitors. And epinephrine was being administered Patient was noted to be in VFib arrest. ACLS protocol was in place and patient received multiple doses of epinephrine and defibrillation. Patient additionally received multiple doses of bicarb. 2 g of magnesium sulfate and 1 amp of calcium chloride. including RSI medications (see Code sheet ). Dr. Estes from the ED arrived early in the CODE and successfully intubated the patient. Patient did have a brief return Of ROSC however he did become pulseless again and returned into a VFib torsade appearing rhythm. Despite efforts with several more rounds of CPR with epinephrine and defibrillation we were not able to obtain ROSC for 2nd time or maintain a sinus rhythm. Team asked if any other input for additional treatments but patient had been under resuscitation for nearly 40 minutes. Time of called 0114 Review of patient chart noting s/p left BKA, on lovenox for ppx and hx of CHF with inferolateral abnormalities on echo. Labs were drawn during COR but were cancelled possibly due to hemolysis and asked to be processed anyway. Na and K+ elevated but unsure if hemolyzed also drawn from PICC with NS running under pressure bag. creatinine was WNL so suspect this was hemolyzed sample. VBG showed acidosis with elevated bicarb ( drawn post bicarb admin). I did speak to patient sister Kimmy and RODERICK during the COR process and notified of poor prognosis with continued efforts. 2 additional rounds of CPR were completed before TOD called. Critical care time 35 minutes. Objective: Vital Signs Temp Pulse Resp BP Pulse Ox 37.1 C 73 16 114/67 97 09/30/17 00:00 09/30/17 00:00 09/30/17 00:00 09/30/17 00:00 09/30/17 00:00 Microbiology 09/26/17 14:00 Gram Stain - Final Leg - Eswab 09/26/17 14:00 Gram Stain - Final Leg - Tissue 09/26/17 14:05 Gram Stain - Final Leg - Tissue 09/26/17 14:04 Gram Stain - Final Leg - Eswab 09/26/17 14:04 Gram Stain - Final Leg - Tissue 09/26/17 13:50 Gram Stain - Final Leg - Tissue 09/26/17 13:50 Gram Stain - Final Leg - Eswab Laboratory Results 09/30/17 01:00 09/30/17 01:00 09/28/17 09/29/17 09/30/17 04:59 05:59 05:59 Intake Total 1490 Output Total 550 Balance 940 PT 15.3 SEC (12.0-15.0) H 09/20/17 09:42 INR 1.19 (0.83-1.16) H 09/20/17 09:42 ICD10 Worksheet Patient Problems: Problems Problem Status Onset Abnormal EKG Acute Anemia Acute Diabetic infection of left foot Acute Elevated troponin Acute Foot infection Acute Encephalopathy acute Acute
[2017-09-30] MEDS ORDERED: EPINEPHrine 1 MG/10 ML SYR IVP ONE (02:32)
[2017-09-30] MEDS ORDERED: SODIUM BICARBONATE 50 MEQ/50 ML SYR IV ONE (02:32)
[2017-09-30] MEDS ORDERED: CALCIUM CHLORIDE 1 GM/10 ML INJ IV ONE (02:32)
--- NOTE | 2017-10-12 07:23 | GOP ---
[f rep st] OPERATIVE REPORT DATE OF OPERATION: 09/26/2017 SURGEON: Bhupinder Henriquez MD ANESTHESIOLOGIST: Kane Dodson MD PREOPERATIVE DIAGNOSIS: POSTOPERATIVE DIAGNOSIS: PROCEDURE PERFORMED: Guillotine below-knee amputation, left for gangrene. FINDINGS: INDICATIONS: This is a 62-year-old gentleman with known peripheral arterial disease who had undergon e multiple debridements and antibiotic treatment and septic admissions for gangrene of the left foot. He had hardware placed from previous leg injury and this was removed by Dr. Sesay at the time of the amputation. DESCRIPTION OF PROCEDURE: After the patient had been induced for general endotracheal anesthesia and tourniquet applied, he had hardware removed. Subsequent closure of the upper part of the hockey-sti ck incision was performed by Dr. Sesay. The case was turned over to me with leg ready, prepped and draped and the patient under anesthesia. Tourniquet time with that was used for my part was 30 minutes. The patient's leg was on a bump. An appropriate position was made for the amputation 15-20 cm below the tibial tuberosity. Incision was made using a 15 blade circumferentially, deepened with electrocautery. The tibia and femur were iden tified and periosteal elevators were used to expose the bones 3-4 cm above the amputation site. The electric saw was used to divide the bone of the tibia and bone cutters were used to divide the fibula . The neurovascular bundles were identified and suture ligated. The tourniquet was then removed. T he saphenous vein was ligated with a suture ligature and hemostasis was then assured through all blee ding that was seen. There was bleeding from the bone, which was packed and then cauterized. The inc isions were closed on the lateral aspect of the leg, as well as somewhat reapproximation of the guill otine site for hemostasis purposes only. Dressing was applied of Xeroform and packing. The wound wa s dressed sterilely. The patient was then awakened, extubated, taken to recovery room in stable cond ition. No immediate complications. CO-SURGEON: Dr. Sesay. /[id number]/MODL
--- NOTE | 2017-10-25 04:36 | GDS ---
[f rep st] DISCHARGE SUMMARY SUMMARY: DATE OF ADMISSION: 09/20/17. DATE OF : 09/30/17. TIME OF : 0114. CAUSE OF : VFib arrest, torsade. SECONDARY DIAGNOSES: 1. Right diabetic foot wound. 2. Cellulitis. 3. Methicillin-resistant staphylococcus aureus. 4. Diabetes type 2, uncontrolled. 5. Hyperkalemia. 6. Metabolic acidosis. 7. Anemia. 8. Peripheral vascular disease. 9. Dementia with history of traumatic brain injury. 10. Chronic pain on chronic narcotic therapy. 11. Benign essential hypertension. 12. Obesity. Body mass index 36. 13. Wheelchair bound. 14. Generalized deconditioning. 15. Coronary artery disease. 16. Coccyx pressure ulcer present on admission. BRIEF ADMISSION HISTORY AND HOSPITAL COURSE: The patient was admitted on 2017 for right diabetic foot wound, cellulitis, and suspected osteomyelitis with history of MRSA infection. General Surgery was consulted for evaluation with recommendations for amputation. The patient was admitted to the hospital. A cardiac evaluation was completed prior to surgery, although patient was known to be high risk, surgical intervention was required for life-saving measures. The patient subsequently underwent a left BKA on 09/26/2017 and had a wound VAC in place with plans to return for closure of wound stump. Patient received IV antibiotics and it appeared to be slowly healing. On date of , patient went into sudden VFib arrest and received approximately 40 minutes of attempted CPR. The patient had a short period of ROSC, unfortunately returned into VFib arrest despite appropriate ACLS resuscitation efforts, in addition to receiving magnesium, calcium, bicarb, and intubation. ROSC was not able to be achieved and time of was called at 0114. Patient's sister was called during resuscitative efforts, and she did present after patient's time of . Spiritual Care was consulted and was able to provide additional support to patient's family. CONSULTANTS DURING HOSPITAL STAY: General Surgery, Dr. Henriquez and Dr. Abbott, Infectious Disease, Cardiology, Orthopedic Surgery, Dr. Sesay, wound care, PT , OT, and ED consultation for emergent intubation. Please see my progress note from 09/30/2017 entered into the EMR for additional details, as well as the code sheet for specifics on medication administration time. /[id number]/MODL MTDD
== END 2017-09-30 04:00 | disposition expired | DRG 617 ==
LOC: OBSVTOIN 10:17 → F2W 12:40 → F3N 09-26 12:21
PROVIDERS: ADMIT Internal Medicine; ATTEND Family Medicine
PROC: 02HV33Z Insertion of Infusion Device into Superior Vena Cava, Percutaneous Approach (ICD-10-PCS; 2017-09-24)
PROC: 0Y6J0Z2 Detachment at Left Lower Leg, Mid, Open Approach (ICD-10-PCS; principal; 2017-09-26 12:00)
PROC: 0QPH04Z Removal of Internal Fixation Device from Left Tibia, Open Approach (ICD-10-PCS; principal; 2017-09-26 12:00)
PROC: 0QQ Lower Bones, Repair (ICD-10-PCS; principal; 2017-09-26 12:00)
PROC: 5A1935Z Respiratory Ventilation, Less than 24 Consecutive Hours (ICD-10-PCS; 2017-09-30)
PROC: 5A2204Z Restoration of Cardiac Rhythm, Single (ICD-10-PCS; 2017-09-30)
PROC: 5A12012 Performance of Cardiac Output, Single, Manual (ICD-10-PCS; 2017-09-30)
PROC: 0BH17EZ Insertion of Endotracheal Airway into Trachea, Via Natural or Artificial Opening (ICD-10-PCS; 2017-09-30)
DX: E11.621 Type 2 diabetes mellitus with foot ulcer (principal); L97.422 Non-pressure chronic ulcer of left heel and midfoot with fat layer exposed; I96 Gangrene, not elsewhere classified; L03.116 Cellulitis of left lower limb; B95.62 Methicillin resistant Staphylococcus aureus infection as the cause of diseases classified elsewhere; L97.421 Non-pressure chronic ulcer of left heel and midfoot limited to breakdown of skin; I49.01 Ventricular fibrillation; I46.2 Cardiac arrest due to underlying cardiac condition; E11.69 Type 2 diabetes mellitus with other specified complication; E11.65 Type 2 diabetes mellitus with hyperglycemia; E11.42 Type 2 diabetes mellitus with diabetic polyneuropathy; Z79.4 Long term (current) use of insulin; E11.51 Type 2 diabetes mellitus with diabetic peripheral angiopathy without gangrene; I70.203 Unspecified atherosclerosis of native arteries of extremities, bilateral legs; Z89.411 Acquired absence of right great toe; Z89.421 Acquired absence of other right toe(s); M85.862 Other specified disorders of bone density and structure, left lower leg; S06.9X9S Unspecified intracranial injury with loss of consciousness of unspecified duration, sequela; F02.80 Dementia in other diseases classified elsewhere, unspecified severity, without behavioral disturbance, psychotic disturbance, mood disturbance, and anxiety; G89.29 Other chronic pain; F11.20 Opioid dependence, uncomplicated; L89.152 Pressure ulcer of sacral region, stage 2; I10 Essential (primary) hypertension; E66.09 Other obesity due to excess calories; Z68.36 Body mass index [BMI] 36.0-36.9, adult; Z86.73 Personal history of transient ischemic attack (TIA), and cerebral infarction without residual deficits; Z79.82 Long term (current) use of aspirin; Z79.02 Long term (current) use of antithrombotics/antiplatelets; I25.10 Atherosclerotic heart disease of native coronary artery without angina pectoris
CPT/HCPCS: 96374; 97116-GP; 97162-GP; 97164-GP; 97167-GO; 97168-GO; 97530-GO; 97535-GO; A9500; C1751; C8924; G8978-GP-CJ; G8978-GP-CL; G8979-GP-CJ; G8979-GP-CK; G8987-GO-CL; G8988-GO-CJ; G8988-GO-CK; J1170; J1650; J1815; J2270; J2370; J2405; J2543; J2704; J2785; J2997; J3010; J3370; J3475; Q9957